=== PATIENT | female | born 1960 | race Caucasian/White ===

== ENCOUNTER → 2017-05-06 07:01 | Outpatient (CLI) | payer BC, SELFPAY ==
[2017-05-06 10:16] LABS: Absolute Lymphocyte Count 1.95 X10^3/ul (0.83-4.51); Absolute Neutrophil Count 3.5 X10^3/uL (2.0-7.7); Basophil# 0.03 X10^3/uL; Basophil% 0.5 % (0-1); Eosinophil# 0.07 X10^3/uL; Eosinophils% 1.2 % (0-5); Hematocrit 37.4 % (37-47); Hemoglobin 12.7 g/dl (12.0-15.0); Lymphocyte # 1.95 X10^3/ul (4.0); Lymphocyte % 32.5 % (19-41); Mean Corpuscular Hgb 30.2 pg (27.0-32.0); Mean Platelet Vol. 9.3 fl (6.2-12.0); Monocyte# 0.45 X10^3/uL; Monocyte% 7.5 % (0-10); Neutrophil % 58.3 % (47-70); Platelet Count 270 K/mm3 (150-450); RBC Distribution Width CV 13.3 % (11.6-14.6); RBC Distribution Width SD 41.2 fl (35.1-43.9)
[2017-05-06 10:17] LABS: POSITIVE COUNT NO; POSITIVE DIFFERENTIAL NO; POSITIVE MORPHOLOGY NO
[2017-05-06 10:26] LABS: AST(SGOT) 32 U/L (15-37); Alanine Aminotransfer ALT/SGPT 54 U/L (13-56); Albumin, Serum 3.7 g/dL (3.2-5.0); Alkaline Phosphatase 76 U/L (45-117); Anion Gap 10 (5-15); BUN 12 mg/dL (7-18); BUN/Creat Ratio 14.6 RATIO (10-20); Chloride 101 mmol/L (98-107); Creatinine, Serum 0.82 mg/dL (0.55-1.02); EST Glomerular Filtration Rate 77 mL/min (>60); Est Glom Filt Rate - Afr Amer 93 mL/min (>60); Globulin 3.8 g/dL (2.2-4.2); Glucose 135 mg/dL (74-106); Potassium 3.9 mmol/L (3.5-5.1); Protein, Total 7.5 g/dL (6.4-8.2); Sodium Level 140 mmol/L (136-145)
== END ==
PROVIDERS: Family Provider Internal Medicine; PCP Internal Medicine; Visit Provider Internal Medicine Rheumatology
DX: L40.59 Other psoriatic arthropathy (principal); M21.40 Flat foot [pes planus] (acquired), unspecified foot; I10 Essential (primary) hypertension; E11.9 Type 2 diabetes mellitus without complications; Z79.899 Other long term (current) drug therapy; Z85.820 Personal history of malignant melanoma of skin
CPT/HCPCS: 36415; 80053; 85025

== ENCOUNTER 2017-05-29 07:33 | Outpatient (RCR) | payer BC, SELFPAY ==
[2017-05-29 10:23] LABS: Absolute Lymphocyte Count 1.92 X10^3/ul (0.83-4.51); Absolute Neutrophil Count 3.5 X10^3/uL (2.0-7.7); Basophil# 0.02 X10^3/uL; Basophil% 0.3 % (0-1); Eosinophil# 0.08 X10^3/uL; Eosinophils% 1.3 % (0-5); Hematocrit 38.2 % (37-47); Hemoglobin 12.6 g/dl (12.0-15.0); Lymphocyte # 1.92 X10^3/ul (4.0); Lymphocyte % 31.6 % (19-41); Mean Platelet Vol. 8.9 fl (6.2-12.0); Monocyte# 0.51 X10^3/uL; Monocyte% 8.4 % (0-10); Neutrophil # 3.54 X10^3/uL (2.7-7.7); Neutrophil % 58.2 % (47-70); Platelet Count 232 K/mm3 (150-450); RBC Distribution Width CV 13.7 % (11.6-14.6); RBC Distribution Width SD 44.1 fl (35.1-43.9); White Blood Count 6.1 K/mm3 (4.4-11.0)
[2017-05-29 10:26] LABS: POSITIVE COUNT NO; POSITIVE DIFFERENTIAL NO; POSITIVE MORPHOLOGY NO
[2017-05-29 11:03] LABS: AST(SGOT) 27 U/L (15-37); Alanine Aminotransfer ALT/SGPT 51 U/L (13-56); Albumin, Serum 3.8 g/dL (3.2-5.0); Alkaline Phosphatase 75 U/L (45-117); Anion Gap 8 (5-15); BUN 21 mg/dL (7-18); BUN/Creat Ratio 26.6 RATIO (10-20); Chloride 100 mmol/L (98-107); Creatinine, Serum 0.79 mg/dL (0.55-1.02); EST Glomerular Filtration Rate 80 mL/min (>60); Est Glom Filt Rate - Afr Amer 97 mL/min (>60); Glucose 137 mg/dL (74-106); Potassium 3.5 mmol/L (3.5-5.1); Protein, Total 7.8 g/dL (6.4-8.2); Sodium Level 137 mmol/L (136-145)
== END 2017-05-29 08:00 | disposition home or self-care (01) ==
LOC: MTLAB 07:33
PROVIDERS: Family Provider Internal Medicine; PCP Internal Medicine; Visit Provider Internal Medicine Rheumatology
DX: L40.59 Other psoriatic arthropathy (principal); Z79.899 Other long term (current) drug therapy; L40.8 Other psoriasis; M21.40 Flat foot [pes planus] (acquired), unspecified foot; Z85.820 Personal history of malignant melanoma of skin; I10 Essential (primary) hypertension; E11.9 Type 2 diabetes mellitus without complications
CPT/HCPCS: 36415; 80053; 85025

== ENCOUNTER → 2017-08-11 07:36 | Outpatient (CLI) | payer BC, SELFPAY ==
[2017-08-11 10:11] LABS: Absolute Lymphocyte Count 1.99 X10^3/ul (0.83-4.51); Absolute Neutrophil Count 3.6 X10^3/uL (2.0-7.7); Basophil# 0.02 X10^3/uL; Basophil% 0.3 % (0-1); Eosinophil# 0.08 X10^3/uL; Eosinophils% 1.3 % (0-5); Hematocrit 42.1 % (37-47); Hemoglobin 13.8 g/dl (12.0-15.0); Lymphocyte # 1.99 X10^3/ul (4.0); Lymphocyte % 31.8 % (19-41); Mean Corp Hgb Conc 32.8 g/gl (32-36); Mean Corpuscular Hgb 30.1 pg (27.0-32.0); Mean Corpuscular Volume 91.7 fL (81-99); Mean Platelet Vol. 9.4 fl (6.2-12.0); Monocyte# 0.59 X10^3/uL; Monocyte% 9.4 % (0-10); Neutrophil # 3.58 X10^3/uL (2.7-7.7); Neutrophil % 57.2 % (47-70); Platelet Count 256 K/mm3 (150-450); RBC Distribution Width CV 13.3 % (11.6-14.6); RBC Distribution Width SD 43.8 fl (35.1-43.9); Red Blood Count 4.59 M/mm3 (4.2-5.4); White Blood Count 6.3 K/mm3 (4.4-11.0)
[2017-08-11 10:14] LABS: POSITIVE COUNT NO; POSITIVE DIFFERENTIAL NO; POSITIVE MORPHOLOGY NO
[2017-08-11 10:29] LABS: ALB/GLOB Ratio 0.9 RATIO (0.9-2.4); AST(SGOT) 61 U/L (15-37); Alanine Aminotransfer ALT/SGPT 67 U/L (13-56); Albumin, Serum 3.8 g/dL (3.2-5.0); Alkaline Phosphatase 80 U/L (45-117); Anion Gap 8 (5-15); BUN 15 mg/dL (7-18); BUN/Creat Ratio 17.5 RATIO (10-20); Calcium,Total 9.3 mg/dL (8.5-10.1); Chloride 103 mmol/L (98-107); Creatinine, Serum 0.86 mg/dL (0.55-1.02); EST Glomerular Filtration Rate 73 mL/min (>60); Est Glom Filt Rate - Afr Amer 88 mL/min (>60); Globulin 4.2 g/dL (2.2-4.2); Glucose 136 mg/dL (74-106); Potassium 3.7 mmol/L (3.5-5.1); Sodium Level 140 mmol/L (136-145)
== END ==
PROVIDERS: Family Provider Internal Medicine; PCP Internal Medicine; Visit Provider Internal Medicine Rheumatology
DX: L40.59 Other psoriatic arthropathy (principal); Z79.899 Other long term (current) drug therapy
CPT/HCPCS: 36415; 80053; 85025

== ENCOUNTER → 2017-10-01 07:01 | Outpatient (CLI) | payer BC, SELFPAY ==
[2017-10-01 10:14] LABS: Absolute Neutrophil Count 3.3 X10^3/uL (2.0-7.7); Basophil# 0.03 X10^3/uL; Basophil% 0.5 % (0-1); Eosinophils% 1.7 % (0-5); Hematocrit 39.7 % (37-47); Hemoglobin 13.4 g/dl (12.0-15.0); Lymphocyte % 30.9 % (19-41); Mean Corp Hgb Conc 33.8 g/gl (32-36); Mean Corpuscular Hgb 29.8 pg (27.0-32.0); Mean Corpuscular Volume 88.4 fL (81-99); Mean Platelet Vol. 9.3 fl (6.2-12.0); Monocyte% 10.3 % (0-10); Neutrophil # 3.29 X10^3/uL (2.7-7.7); Neutrophil % 56.6 % (47-70); Platelet Count 283 K/mm3 (150-450); RBC Distribution Width CV 13.1 % (11.6-14.6); RBC Distribution Width SD 41.2 fl (35.1-43.9); Red Blood Count 4.49 M/mm3 (4.2-5.4); White Blood Count 5.8 K/mm3 (4.4-11.0)
[2017-10-01 10:27] LABS: ALB/GLOB Ratio 0.9 RATIO (0.9-2.4); AST(SGOT) 28 U/L (15-37); Alanine Aminotransfer ALT/SGPT 45 U/L (13-56); Albumin, Serum 3.8 g/dL (3.2-5.0); Alkaline Phosphatase 77 U/L (45-117); Anion Gap 9 (5-15); BUN 13 mg/dL (7-18); BUN/Creat Ratio 16.5 RATIO (10-20); Calcium,Total 9.2 mg/dL (8.5-10.1); Chloride 102 mmol/L (98-107); Creatinine, Serum 0.79 mg/dL (0.55-1.02); EST Glomerular Filtration Rate 80 mL/min (>60); Est Glom Filt Rate - Afr Amer 97 mL/min (>60); Globulin 4.1 g/dL (2.2-4.2); Glucose 128 mg/dL (74-106); Potassium 3.6 mmol/L (3.5-5.1); Protein, Total 7.9 g/dL (6.4-8.2); Sodium Level 140 mmol/L (136-145)
[2017-10-01 10:32] LABS: POSITIVE COUNT NO; POSITIVE DIFFERENTIAL NO; POSITIVE MORPHOLOGY NO
== END ==
PROVIDERS: Family Provider Internal Medicine; PCP Internal Medicine; Visit Provider Internal Medicine Rheumatology
DX: L40.59 Other psoriatic arthropathy (principal); Z79.899 Other long term (current) drug therapy
CPT/HCPCS: 36415; 80053; 85025

== ENCOUNTER → 2017-12-29 07:14 | Outpatient (CLI) | payer BC, SELFPAY ==
[2017-12-29 10:11] LABS: Absolute Lymphocyte Count 1.86 X10^3/ul (0.83-4.51); Absolute Neutrophil Count 3.3 X10^3/uL (2.0-7.7); Basophil# 0.03 X10^3/uL; Basophil% 0.5 % (0-1); Eosinophil# 0.06 X10^3/uL; Hematocrit 39.7 % (37-47); Hemoglobin 13.1 g/dl (12.0-15.0); Lymphocyte # 1.86 X10^3/ul (4.0); Lymphocyte % 32.2 % (19-41); Mean Corpuscular Hgb 28.8 pg (27.0-32.0); Mean Corpuscular Volume 87.3 fL (81-99); Mean Platelet Vol. 8.9 fl (6.2-12.0); Monocyte% 8.7 % (0-10); Neutrophil # 3.32 X10^3/uL (2.7-7.7); Neutrophil % 57.4 % (47-70); Platelet Count 279 K/mm3 (150-450); RBC Distribution Width SD 43.7 fl (35.1-43.9); Red Blood Count 4.55 M/mm3 (4.2-5.4); White Blood Count 5.8 K/mm3 (4.4-11.0)
[2017-12-29 10:17] LABS: POSITIVE COUNT NO; POSITIVE DIFFERENTIAL NO; POSITIVE MORPHOLOGY NO
[2017-12-29 10:28] LABS: ALB/GLOB Ratio 0.9 RATIO (0.9-2.4); AST(SGOT) 34 U/L (15-37); Alanine Aminotransfer ALT/SGPT 56 U/L (13-56); Albumin, Serum 3.6 g/dL (3.2-5.0); Alkaline Phosphatase 85 U/L (45-117); Anion Gap 8 (5-15); BUN 14 mg/dL (7-18); BUN/Creat Ratio 17.3 RATIO (10-20); Calcium,Total 9.3 mg/dL (8.5-10.1); Chloride 103 mmol/L (98-107); Creatinine, Serum 0.81 mg/dL (0.55-1.02); EST Glomerular Filtration Rate 78 mL/min (>60); Est Glom Filt Rate - Afr Amer 94 mL/min (>60); Globulin 4.2 g/dL (2.2-4.2); Glucose 135 mg/dL (74-106); Potassium 3.8 mmol/L (3.5-5.1); Protein, Total 7.8 g/dL (6.4-8.2); Sodium Level 142 mmol/L (136-145)
== END ==
PROVIDERS: Family Provider Internal Medicine; PCP Internal Medicine; Referring Provider Internal Medicine Rheumatology; Visit Provider Internal Medicine Rheumatology
DX: L40.59 Other psoriatic arthropathy (principal); Z79.899 Other long term (current) drug therapy
CPT/HCPCS: 36415; 80053; 85025

== ENCOUNTER → 2018-02-13 07:49 | Outpatient (CLI) | payer BC, SELFPAY ==
--- NOTE | 2018-02-13 07:58 | BI_ITS ---
MAMMOGRAPHY - BILATERAL SCREENING REASON FOR EXAM: Female, 57 years old. Routine annual screening examination. PERTINENT HISTORY: Non-contributory. TECHNIQUE: Digital bilateral breast gin (3D mammographic acquisition) in the CC and MLO projections. 2-D mediolateral oblique (MLO) and craniocaudad (CC) views of both breasts were obtained. CAD: Full Field Digital Mammography with Computer Added Detection was performed. COMPARISON: Comparison is made with prior study dated February 16, 2013 and January 17, 2011. FINDINGS: Breast Composition: There are scattered areas of fibroglandular density. There are no dominant masses or suspicious calcifications. Stable small benign-appearing bilateral axillary lymph nodes. No other significant abnormalities are identified. There has been no significant change since the prior study. BI/SCREENING MAMM (CAD), BILAT IMPRESSION: Stable bilateral screening mammogram. Yearly follow-up mammogram recommended. (A) ASSESSMENT CATEGORY: BIRADS Category 2: Benign. A letter regarding these results will be sent to the patient by the facility within 30 days. Approximately 10% of breast cancers are not detected by mammography. A normal mammogram should not delay biopsy of a clinically suspicious abnormality. [id number] Electronically Signed: Alcides Will MD at 14:32 EST Tel [phone], Service support ,
== END ==
PROVIDERS: Family Provider Internal Medicine; PCP Internal Medicine; Referring Provider Internal Medicine; Visit Provider Internal Medicine
DX: Z12.31 Encounter for screening mammogram for malignant neoplasm of breast (principal)
CPT/HCPCS: 77063; 77067

== ENCOUNTER → 2018-06-17 07:03 | Outpatient (CLI) | payer BC, SELFPAY ==
[2018-05-10 07:11] VITALS: BMI 35.6
[2018-06-17 07:09] LABS: Mucous, Urine 0 SEEN /hpf (<or=2+)
[2018-06-17 09:56] LABS: Color, Urine Yellow (Yellow); Glucose, Dipstick Normal (Normal); Ketone-Dipstick Negative (Negative); Leukocyte Esterase-Dipstick 500 /ul (Negative); Nitrite-Dipstick Negative (Negative); Occult Blood-Urine 10 /ul (Negative); Protein-Dipstick 100 mg/dl (Negative); Specific Gravity, Urine 1.015 (1.002-1.030); Urine Bilirubin Dipstick Negative (Negative); Urine Clarity Sl. Cloudy (Clear); Urine Urobilinogen Normal (Normal)
[2018-06-17 10:02] LABS: Bacteria 1+ /hpf (None Seen); Red Blood Cells-Urine 0-5 SEEN /hpf (0-5); White Blood Cells 25-50 SEEN /hpf (0-5)
[2018-06-17 10:03] LABS: Squamous Epithelial Cells - UA 0-5 SEEN /hpf (5-10)
[2018-06-17 10:15] LABS: Cholesterol 180 mg/dL (200); High Density Lipoprotein 45 mg/dL; Thyroid Stim Hormone (TSH) 1.96 uIU/mL (0.358-3.74); Triglycerides 254 mg/dL; Very Low Density Lipoprotein 51 mg/dL (5-40)
[2018-06-17 10:47] LABS: Microalbumin:Creatinine Ratio 574.3 mg/g CRE (<30 mg/g CRE)
== END ==
PROVIDERS: Family Provider Internal Medicine; PCP Internal Medicine; Referring Provider Internal Medicine; Visit Provider Internal Medicine
DX: E11.29 Type 2 diabetes mellitus with other diabetic kidney complication (principal)
CPT/HCPCS: 36415; 80061; 81001; 82043; 82570; 84443

== ENCOUNTER → 2018-10-22 07:01 | Outpatient (CLI) | payer BC, SELFPAY ==
[2018-05-10 07:11] VITALS: BMI 35.6
[2018-10-22 10:22] LABS: Anion Gap 9 (5-15); BUN 12 mg/dL (7-18); BUN/Creat Ratio 15.1 RATIO (10-20); Calcium,Total 9.2 mg/dL (8.5-10.1); Chloride 104 mmol/L (98-107); EST Glomerular Filtration Rate 79 mL/min (>60); Est Glom Filt Rate - Afr Amer 95 mL/min (>60); Glucose 137 mg/dL (74-106); Potassium 3.8 mmol/L (3.5-5.1); Sodium Level 141 mmol/L (136-145)
== END ==
PROVIDERS: Family Provider Internal Medicine; PCP Internal Medicine; Referring Provider Internal Medicine; Visit Provider Internal Medicine
DX: R82.90 Unspecified abnormal findings in urine (principal); Z51.81 Encounter for therapeutic drug level monitoring
CPT/HCPCS: 36415; 80048

== ENCOUNTER → 2019-01-21 07:01 | Outpatient (CLI) | payer BC, SELFPAY ==
[2018-05-10 07:11] VITALS: BMI 35.6
[2019-01-21 07:06] LABS: Mucous, Urine 0 SEEN /hpf (<or=2+)
[2019-01-21 09:57] LABS: Absolute Lymphocyte Count 1.83 X10^3/uL (0.83-4.51); Absolute Neutrophil Count 3.5 X10^3/uL (2.0-7.7); Basophil# 0.04 X10^3/uL; Basophil% 0.7 % (0-1); Eosinophils% 1.7 % (0-5); Hematocrit 39.9 % (37-47); Hemoglobin 12.9 g/dL (12.0-15.0); Lymphocyte # 1.83 X10^3/ul (4.0); Lymphocyte % 30.2 % (19-41); Mean Corp Hgb Conc 32.3 g/dL (32-36); Mean Corpuscular Hgb 27.9 pg (27.0-32.0); Mean Corpuscular Volume 86.4 fL (81-99); Mean Platelet Vol. 9.7 fl (6.2-12.0); Monocyte# 0.54 X10^3/uL; Monocyte% 8.9 % (0-10); NRBC Flagged by Analyzer 0 % (0-5); Neutrophil # 3.54 X10^3/uL (2.7-7.7); Neutrophil % 58.3 % (47-70); Platelet Count 224 K/mm3 (150-450); RBC Distribution Width CV 13.4 % (11.6-14.6); RBC Distribution Width SD 41.1 fl (35.1-43.9); Red Blood Count 4.62 M/mm3 (4.2-5.4); White Blood Count 6.1 K/mm3 (4.4-11.0)
[2019-01-21 10:00] LABS: Color, Urine Yellow (Yellow); Glucose, Dipstick 1000 mg/dl (Normal); Ketone-Dipstick Negative (Negative); Leukocyte Esterase-Dipstick 25 /ul (Negative); Nitrite-Dipstick Negative (Negative); Occult Blood-Urine Negative /ul (Negative); Protein-Dipstick 100 mg/dl (Negative); Urine Bilirubin Dipstick Negative (Negative); Urine Clarity Clear (Clear); Urine Urobilinogen Normal (Normal)
[2019-01-21 10:08] LABS: Bacteria RARE /hpf (None Seen); Red Blood Cells-Urine 0-5 SEEN /hpf (0-5); Squamous Epithelial Cells - UA 0-5 SEEN /hpf (5-10); White Blood Cells 5-10 SEEN /hpf (0-5)
[2019-01-21 10:38] LABS: ALB/GLOB Ratio 0.8 RATIO (0.9-2.4); AST(SGOT) 41 U/L (15-37); Alanine Aminotransfer ALT/SGPT 51 U/L (13-56); Albumin, Serum 3.4 g/dL (3.2-5.0); Alkaline Phosphatase 95 U/L (45-117); Anion Gap 8 (5-15); BUN 19 mg/dL (7-18); BUN/Creat Ratio 20.5 RATIO (10-20); Calcium,Total 9.1 mg/dL (8.5-10.1); Chloride 106 mmol/L (98-107); Creatinine, Serum 0.93 mg/dL (0.55-1.02); EST Glomerular Filtration Rate 66 mL/min (>60); Est Glom Filt Rate - Afr Amer 80 mL/min (>60); Globulin 4.1 g/dL (2.2-4.2); Glucose 174 mg/dL (74-106); Potassium 3.8 mmol/L (3.5-5.1); Protein, Total 7.5 g/dL (6.4-8.2); Sodium Level 140 mmol/L (136-145); Thyroid Stim Hormone (TSH) 1.89 uIU/mL (0.358-3.74)
[2019-01-21 10:39] LABS: Microalbumin:Creatinine Ratio 1254.1 mg/g CRE (<30 mg/g CRE)
[2019-01-22 14:07] LABS: CHOLESTEROL TOTAL 199 mg/dL (100-199); HDL-C 42 mg/dL (>39); HDL-P TOTAL 35.8 umol/L (>=30.5); SMALL LDL-P 1251 nmol/L (<=527); TRIGLYCERIDES 178 mg/dL (0-149)
[2019-01-24 10:30] LABS: INSULIN RESISTANCE SCORE 80 (<=45); LDL SIZE 19.9 nm (>20.5); LDL-C 121 mg/dL (0-99); LDL-P 1789 nmol/L (<1000)
== END ==
PROVIDERS: Family Provider Internal Medicine; PCP Internal Medicine; Referring Provider Internal Medicine; Visit Provider Internal Medicine
DX: E11.65 Type 2 diabetes mellitus with hyperglycemia (principal)
CPT/HCPCS: 36415; 80053; 80061; 81001; 82043; 82570; 83704; 84443; 85025

== ENCOUNTER → 2019-02-15 16:04 | Outpatient (CLI) | payer BC, SELFPAY ==
[2018-05-10 07:11] VITALS: BMI 35.6
--- NOTE | 2019-02-15 16:07 | BI_ITS ---
MAMMOGRAPHY - BILATERAL SCREENING REASON FOR EXAM: Female, 58 years old. Routine annual screening examination. PERTINENT HISTORY: Non-contributory. TECHNIQUE: Digital bilateral breast mariama (3D mammographic acquisition) in the CC and MLO projections. 2-D mediolateral oblique (MLO) and craniocaudad (CC) views of both breasts were obtained. CAD: Full Field Digital Mammography with Computer Added Detection was performed. COMPARISON: Comparison is made with prior examination dated February 13, 2018 and February 16, 2013. FINDINGS: Breast Composition: There are scattered areas of fibroglandular density. There are no dominant masses or suspicious calcifications. Stable appearance of the small bilateral axillary lymph nodes. No other significant abnormalities are identified. There has been no significant change since the prior study. BI/SCREEN MAMM (CAD) W/MARIAMA BILAT IMPRESSION: Stable bilateral screening mammogram. Yearly follow-up mammogram recommended. (A) ASSESSMENT CATEGORY: BIRADS Category 2: Benign. A letter regarding these results will be sent to the patient by the facility within 30 days. Approximately 10% of breast cancers are not detected by mammography. A normal mammogram should not delay biopsy of a clinically suspicious abnormality. [id number] Electronically Signed: Alcides Will, at 8:07 EST , Service support ,
== END ==
PROVIDERS: Family Provider Internal Medicine; PCP Internal Medicine; Referring Provider Internal Medicine; Visit Provider Internal Medicine
DX: Z12.31 Encounter for screening mammogram for malignant neoplasm of breast (principal); G47.33 Obstructive sleep apnea (adult) (pediatric)
CPT/HCPCS: 77063; 77067

== ENCOUNTER → 2019-04-25 07:01 | Outpatient (CLI) | payer BC, SELFPAY ==
[2018-05-10 07:11] VITALS: BMI 35.6
[2019-04-25 10:46] LABS: AST(SGOT) 39 U/L (15-37); Alanine Aminotransfer ALT/SGPT 60 U/L (13-56); Albumin, Serum 3.5 g/dL (3.2-5.0); Alkaline Phosphatase 79 U/L (45-117); Bilirubin, Direct 0.14 mg/dL (0.00-0.30); Globulin 4.3 g/dL (2.2-4.2); Protein, Total 7.8 g/dL (6.4-8.2)
[2019-04-26 14:19] LABS: CHOLESTEROL TOTAL 151 mg/dL (100-199); HDL-C 40 mg/dL (>39); HDL-P TOTAL 30.2 umol/L (>=30.5); SMALL LDL-P 856 nmol/L (<=527); TRIGLYCERIDES 185 mg/dL (0-149)
[2019-04-27 12:00] LABS: INSULIN RESISTANCE SCORE 85 (<=45); LDL SIZE 20.5 nm (>20.5); LDL-C 74 mg/dL (0-99); LDL-P 1295 nmol/L (<1000)
== END ==
PROVIDERS: PCP Internal Medicine; Referring Provider Internal Medicine; Visit Provider Internal Medicine
DX: E11.65 Type 2 diabetes mellitus with hyperglycemia (principal)
CPT/HCPCS: 36415; 80061; 80076; 83704

== ENCOUNTER → 2019-04-28 09:00 | Outpatient (CLI) | payer BC, SELFPAY ==
[2018-05-10 07:11] VITALS: BMI 35.6
== END ==
PROVIDERS: PCP Internal Medicine; Referring Provider Internal Medicine; Visit Provider Internal Medicine
DX: G47.33 Obstructive sleep apnea (adult) (pediatric) (principal)
CPT/HCPCS: 98960; G0463

== ENCOUNTER → 2019-07-22 07:02 | Outpatient (CLI) | payer BC, SELFPAY ==
[2018-05-10 07:11] VITALS: BMI 35.6
[2019-07-22 07:08] LABS: Mucous, Urine 0 SEEN /hpf (<or=2+)
[2019-07-22 09:56] LABS: Absolute Lymphocyte Count 2.04 X10^3/uL (0.83-4.51); Absolute Neutrophil Count 3.6 X10^3/uL (2.0-7.7); Basophil# 0.04 X10^3/uL; Basophil% 0.6 % (0-1); Eosinophil# 0.09 X10^3/uL; Eosinophils% 1.4 % (0-5); Hematocrit 40.6 % (37-47); Hemoglobin 13.2 g/dL (12.0-15.0); Lymphocyte # 2.04 X10^3/ul (4.0); Lymphocyte % 32.5 % (19-41); Mean Corp Hgb Conc 32.5 g/dL (32-36); Mean Corpuscular Hgb 27.8 pg (27.0-32.0); Mean Corpuscular Volume 85.7 fL (81-99); Mean Platelet Vol. 9.5 fl (6.2-12.0); Monocyte# 0.54 X10^3/uL; Monocyte% 8.6 % (0-10); NRBC Flagged by Analyzer 0 % (0-5); Neutrophil # 3.55 X10^3/uL (2.7-7.7); Neutrophil % 56.7 % (47-70); Platelet Count 249 K/mm3 (150-450); RBC Distribution Width CV 13.1 % (11.6-14.6); RBC Distribution Width SD 40.9 fl (35.1-43.9); Red Blood Count 4.74 M/mm3 (4.2-5.4); White Blood Count 6.3 K/mm3 (4.4-11.0)
[2019-07-22 10:30] LABS: ALB/GLOB Ratio 0.8 RATIO (0.9-2.4); AST(SGOT) 25 U/L (15-37); Alanine Aminotransfer ALT/SGPT 43 U/L (13-56); Albumin, Serum 3.5 g/dL (3.2-5.0); Alkaline Phosphatase 79 U/L (45-117); Anion Gap 6 (5-15); BUN 15 mg/dL (7-18); BUN/Creat Ratio 16.7 RATIO (10-20); Chloride 103 mmol/L (98-107); EST Glomerular Filtration Rate 69 mL/min (>60); Est Glom Filt Rate - Afr Amer 83 mL/min (>60); Globulin 4.2 g/dL (2.2-4.2); Glucose 130 mg/dL (74-106); Potassium 3.5 mmol/L (3.5-5.1); Protein, Total 7.7 g/dL (6.4-8.2); Sodium Level 138 mmol/L (136-145); Thyroid Stim Hormone (TSH) 1.92 uIU/mL (0.358-3.74)
[2019-07-22 11:10] LABS: Color, Urine Yellow (Yellow); Glucose, Dipstick 1000 mg/dl (Normal); Ketone-Dipstick Negative (Negative); Leukocyte Esterase-Dipstick 25 /ul (Negative); Nitrite-Dipstick Negative (Negative); Occult Blood-Urine Negative /ul (Negative); Protein-Dipstick 100 mg/dl (Negative); Urine Bilirubin Dipstick Negative (Negative); Urine Clarity Clear (Clear); Urine Urobilinogen Normal (Normal)
[2019-07-22 12:13] LABS: Microalbumin:Creatinine Ratio 594.9 mg/g CRE (<30 mg/g CRE)
[2019-07-22 12:27] LABS: Squamous Epithelial Cells - UA 0-5 SEEN /hpf (5-10); White Blood Cells 5-10 SEEN /hpf (0-5)
[2019-07-22 12:28] LABS: Bacteria 2+ /hpf (None Seen)
[2019-07-23 12:07] LABS: CHOLESTEROL TOTAL 175 mg/dL (100-199); HDL-C 53 mg/dL (>39); SMALL LDL-P 466 nmol/L (<=527); TRIGLYCERIDES 160 mg/dL (0-149)
[2019-07-23 14:05] LABS: INSULIN RESISTANCE SCORE 74 (<=45); LDL SIZE 20.9 nm (>20.5); LDL-C 90 mg/dL (0-99); LDL-P 1170 nmol/L (<1000)
== END ==
PROVIDERS: PCP Internal Medicine; Referring Provider Internal Medicine; Visit Provider Internal Medicine
DX: I12.9 Hypertensive chronic kidney disease with stage 1 through stage 4 chronic kidney disease, or unspecified chronic kidney disease (principal); E11.22 Type 2 diabetes mellitus with diabetic chronic kidney disease; N18.9 Chronic kidney disease, unspecified; E11.65 Type 2 diabetes mellitus with hyperglycemia
CPT/HCPCS: 36415; 80053; 80061; 81001; 82043; 82570; 83704; 84443; 85025

== ENCOUNTER → 2019-10-14 08:13 | Outpatient (CLI) | payer BC, SELFPAY ==
[2018-05-10 07:11] VITALS: BMI 35.6
[2019-10-14 09:43] LABS: Absolute Lymphocyte Count 1.79 X10^3/uL (0.83-4.51); Absolute Neutrophil Count 3.2 X10^3/uL (2.0-7.7); Basophil# 0.03 X10^3/uL; Basophil% 0.5 % (0-1); Eosinophil# 0.08 X10^3/uL; Eosinophils% 1.4 % (0-5); Hematocrit 39.7 % (37-47); Hemoglobin 12.5 g/dL (12.0-15.0); Lymphocyte # 1.79 X10^3/ul (4.0); Lymphocyte % 32.1 % (19-41); Mean Corp Hgb Conc 31.5 g/dL (32-36); Mean Corpuscular Hgb 26.9 pg (27.0-32.0); Mean Corpuscular Volume 85.6 fL (81-99); Mean Platelet Vol. 9.4 fl (6.2-12.0); Monocyte# 0.49 X10^3/uL; Monocyte% 8.8 % (0-10); NRBC Flagged by Analyzer 0 % (0-5); Neutrophil # 3.17 X10^3/uL (2.7-7.7); Platelet Count 245 K/mm3 (150-450); RBC Distribution Width CV 13.2 % (11.6-14.6); RBC Distribution Width SD 40.8 fl (35.1-43.9); Red Blood Count 4.64 M/mm3 (4.2-5.4); White Blood Count 5.6 K/mm3 (4.4-11.0)
[2019-10-14 10:16] LABS: AST(SGOT) 22 U/L (15-37); Alanine Aminotransfer ALT/SGPT 31 U/L (13-56); Albumin, Serum 3.8 g/dL (3.2-5.0); Alkaline Phosphatase 76 U/L (45-117); Bilirubin, Direct 0.14 mg/dL (0.00-0.30); Globulin 3.9 g/dL (2.2-4.2); Protein, Total 7.7 g/dL (6.4-8.2)
[2019-10-14 10:50] LABS: HIV - WCH Non-Reactive (Nonreactive); Hepatitis B Surface Antibody Non-Reactive; Hepatitis B Surface Antigen Non-Reactive (Nonreactive)
== END ==
PROVIDERS: PCP Internal Medicine; Referring Provider Dermatology; Visit Provider Dermatology
DX: Z79.899 Other long term (current) drug therapy (principal); Z08 Encounter for follow-up examination after completed treatment for malignant neoplasm; Z85.820 Personal history of malignant melanoma of skin; L40.0 Psoriasis vulgaris; L40.59 Other psoriatic arthropathy; D22.5 Melanocytic nevi of trunk; L57.8 Other skin changes due to chronic exposure to nonionizing radiation
CPT/HCPCS: 36415; 80076; 85025; 86480; 86703; 86704; 86706; 87340

== ENCOUNTER → 2019-10-27 15:24 | Outpatient (CLI) | payer BC, SELFPAY ==
[2018-05-10 07:11] VITALS: BMI 35.6
[2019-11-01 03:07] LABS: QNTFERON TB Mitogen Value > 10.00 IU/mL (.); QNTFERON TB Nil Value 0.15 IU/mL (.); QNTFERON TB1+ Ag Value 0.34 IU/mL (.); QNTFERON TB2+ Ag Value 0.28 IU/mL (.)
[2019-11-01 17:01] LABS: QNTIFERON TB Positive Criteria Negative (Negative)
== END ==
PROVIDERS: PCP Internal Medicine; Referring Provider Ophthalmology; Visit Provider Ophthalmology
DX: Z79.899 Other long term (current) drug therapy (principal)
CPT/HCPCS: 36415; 86480

== ENCOUNTER → 2020-11-08 07:00 | Outpatient (CLI) | payer BC, SELFPAY ==
[2018-05-10 07:11] VITALS: BMI 35.6
[2020-11-08 10:14] LABS: Absolute Lymphocyte Count 1.66 X10^3/uL (0.83-4.51); Absolute Neutrophil Count 2.9 X10^3/uL (2.0-7.7); Basophil# 0.04 X10^3/uL; Basophil% 0.8 % (0-1); Eosinophils% 1.9 % (0-5); Hematocrit 41.1 % (37-47); Hemoglobin 13.2 g/dL (12.0-15.0); Lymphocyte # 1.66 X10^3/ul (0.83-4.51); Lymphocyte % 32.3 % (19-41); Mean Corp Hgb Conc 32.1 g/dL (32-36); Mean Corpuscular Hgb 27.2 pg (27.0-32.0); Mean Corpuscular Volume 84.6 fL (81-99); Mean Platelet Vol. 9.5 fl (6.2-12.0); Monocyte# 0.47 X10^3/uL; Monocyte% 9.1 % (0-10); NRBC Flagged by Analyzer 0 % (0-5); Neutrophil # 2.85 X10^3/uL (2.7-7.7); Neutrophil % 55.5 % (47-70); Platelet Count 245 K/mm3 (150-450); RBC Distribution Width CV 14.9 % (11.6-14.6); Red Blood Count 4.86 M/mm3 (4.2-5.4); White Blood Count 5.1 K/mm3 (4.4-11.0)
[2020-11-08 10:33] LABS: Hemoglobin A1c 7.2 % (3.8-5.6)
[2020-11-08 10:38] LABS: ALB/GLOB Ratio 0.8 RATIO (0.9-2.4); AST(SGOT) 30 U/L (15-37); Alanine Aminotransfer ALT/SGPT 41 U/L (13-56); Albumin, Serum 3.5 g/dL (3.2-5.0); Alkaline Phosphatase 78 U/L (45-117); Anion Gap 9 (5-15); BUN 17 mg/dL (7-18); BUN/Creat Ratio 18.6 RATIO (10-20); Calcium,Total 9.4 mg/dL (8.5-10.1); Chloride 102 mmol/L (98-107); Cholesterol 211 mg/dL (200); Creatinine, Serum 0.91 mg/dL (0.55-1.02); EST Glomerular Filtration Rate 67 mL/min (>60); Est Glom Filt Rate - Afr Amer 81 mL/min (>60); Globulin 4.3 g/dL (2.2-4.2); Glucose 184 mg/dL (74-106); High Density Lipoprotein 46 mg/dL; Potassium 3.7 mmol/L (3.5-5.1); Protein, Total 7.8 g/dL (6.4-8.2); Sodium Level 140 mmol/L (136-145); Thyroid Stim Hormone (TSH) 1.96 uIU/mL (0.358-3.74); Triglycerides 239 mg/dL; Very Low Density Lipoprotein 48 mg/dL (5-40)
[2020-11-08 11:01] LABS: Microalbumin:Creatinine Ratio 747.6 mg/g CRE (<30 mg/g CRE)
== END ==
PROVIDERS: PCP Internal Medicine; Referring Provider Internal Medicine; Visit Provider Internal Medicine
DX: E78.2 Mixed hyperlipidemia (principal); I12.9 Hypertensive chronic kidney disease with stage 1 through stage 4 chronic kidney disease, or unspecified chronic kidney disease; E11.22 Type 2 diabetes mellitus with diabetic chronic kidney disease; N18.9 Chronic kidney disease, unspecified; E11.65 Type 2 diabetes mellitus with hyperglycemia
CPT/HCPCS: 36415; 80053; 80061; 82043; 82570; 83036; 84443; 85025

== ENCOUNTER → 2021-01-22 07:15 | Outpatient (CLI) | payer BC, SELFPAY ==
[2021-01-22 09:53] LABS: Absolute Lymphocyte Count 1.76 X10^3/uL (0.83-4.51); Basophil# 0.04 X10^3/uL; Basophil% 0.7 % (0-1); Eosinophil# 0.11 X10^3/uL; Hematocrit 42.9 % (37-47); Hemoglobin 13.7 g/dL (12.0-15.0); Lymphocyte # 1.76 X10^3/ul (0.83-4.51); Lymphocyte % 32.5 % (19-41); Mean Corp Hgb Conc 31.9 g/dL (32-36); Mean Corpuscular Hgb 27.5 pg (27.0-32.0); Mean Corpuscular Volume 86.1 fL (81-99); Mean Platelet Vol. 9.1 fl (6.2-12.0); Monocyte# 0.53 X10^3/uL; Monocyte% 9.8 % (0-10); NRBC Flagged by Analyzer 0 % (0-5); Neutrophil # 2.96 X10^3/uL (2.7-7.7); Neutrophil % 54.8 % (47-70); Platelet Count 230 K/mm3 (150-450); RBC Distribution Width SD 43.6 fl (35.1-43.9); Red Blood Count 4.98 M/mm3 (4.2-5.4); White Blood Count 5.4 K/mm3 (4.4-11.0)
[2021-01-22 10:09] LABS: AST(SGOT) 29 U/L (15-37); Alanine Aminotransfer ALT/SGPT 34 U/L (13-56); Albumin, Serum 3.3 g/dL (3.2-5.0); Alkaline Phosphatase 71 U/L (45-117); Bilirubin, Direct 0.17 mg/dL (0.00-0.30); Globulin 4.3 g/dL (2.2-4.2); Protein, Total 7.6 g/dL (6.4-8.2)
[2021-01-29 16:08] LABS: QNTFERON TB Mitogen Value > 10.00 IU/mL (.); QNTFERON TB Nil Value 0.12 IU/mL (.); QNTFERON TB1+ Ag Value 0.15 IU/mL (.); QNTFERON TB2+ Ag Value 0.17 IU/mL (.)
[2021-01-29 16:38] LABS: QNTIFERON TB Positive Criteria Negative (Negative)
== END ==
PROVIDERS: PCP Internal Medicine; Referring Provider Dermatology; Visit Provider Dermatology
DX: Z08 Encounter for follow-up examination after completed treatment for malignant neoplasm (principal); L40.0 Psoriasis vulgaris; L40.59 Other psoriatic arthropathy; L57.8 Other skin changes due to chronic exposure to nonionizing radiation; D22.5 Melanocytic nevi of trunk; Z79.899 Other long term (current) drug therapy; Z85.820 Personal history of malignant melanoma of skin
CPT/HCPCS: 36415; 80076; 85025; 86480

== ENCOUNTER 2021-04-04 15:19 | Outpatient (CLI) | payer BC, SELFPAY ==
--- NOTE | 2021-04-04 15:21 | BI_ITS ---
MAMMOGRAPHY - BILATERAL SCREENING REASON FOR EXAM: Female, 61 years old. Routine annual screening examination. PERTINENT HISTORY: Non-contributory. TECHNIQUE: Digital bilateral breast mariama (3D mammographic acquisition) in the CC and MLO projections. 2-D mediolateral oblique (MLO) and craniocaudad (CC) views of both breasts were obtained. CAD: Full Field Digital Mammography with Computer Added Detection was performed. COMPARISON: Comparison is made with prior study dated 02/15/2019 and 02/13/2018. FINDINGS: Breast Composition: There are scattered areas of fibroglandular density. There are no dominant masses or suspicious calcifications. Stable small benign-appearing bilateral axillary lymph nodes. No other significant abnormalities are identified. There has been no significant change since the prior study. BI/SCRN MAMM (CAD)W/MARIAMA BILAT IMPRESSION: Stable bilateral screening mammogram. Yearly follow-up mammogram recommended. (A) ASSESSMENT CATEGORY: BIRADS Category 2: Benign. A letter regarding these results will be sent to the patient by the facility within 30 days. Approximately 10% of breast cancers are not detected by mammography. A normal mammogram should not delay biopsy of a clinically suspicious abnormality. [id number] Electronically Signed: Alcides Will MD at 8:07 EST , Service support ,
--- NOTE | 2021-04-04 15:24 | BD_ITS ---
STUDY: DUAL ENERGY X-RAY ABSORPTIOMETRY / DXA REASON FOR EXAM: Female, 61 years old. Z780. Patient is postmenopausal. TECHNIQUE: Bone Mineral Density (BMD) measurements of lumbar spine and bilateral hips were obtained. COMPARISON: None. FINDINGS: Lumbar Spine (L1-L4): g/cm2 (1.021) / T-score (-0.2) / Z-score (1.2) Findings are suggestive of normal bone density with a low fracture risk. Left Femur Total: g/cm2 (1.048) / T-score (0.9) / Z-score (1.8) Left Femoral Neck: g/cm2 (0.825) / T-score (-0.2) / Z-score (1.1) Right Femur Total: g/cm2 (1.033) / T-score (0.7) / Z-score (1.7) Right Femoral Neck: g/cm2 (0.840) / T-score (-0.1) / Z-score (1.2) BD/Dexa Bone Density Study IMPRESSION: The patient is considered normal as outlined below according to World Elio Organization (WHO) criteria with a low fracture risk. Reference Information: The T-score is the number of standard deviations above or below the standard which is normal for young adults at their peak bone mineral density. The World Health Organization (WHO) interprets the T-scores as follows: Above -1 Normal bone density Between -1 and -2.5 Osteopenia Equal to / or below -2.5 Osteoporosis As a practical clinical guideline, osteopenia may be graded as follows: Mild -1 through -1.5 Moderate -1.6 through -2.0 Severe -2.1 through -2.4 The Z-score is the number of standard deviations above or below age-matched controls. A Z-score of less than -1.5 would be considered abnormal. References: 1. NIH Osteoporosis and Related Bone Diseases www osteo.org 2. International Society for Clinical Densitometry www iscd.org 3. National Osteoporosis Foundation www nof.org Electronically Signed: Alcides Will MD at 10:27 EST , Service support ,
== END 2021-04-04 23:59 | disposition home or self-care (01) ==
LOC: OPBD 15:19
PROVIDERS: PCP Internal Medicine; Visit Provider Internal Medicine
DX: Z12.31 Encounter for screening mammogram for malignant neoplasm of breast (principal); Z13.820 Encounter for screening for osteoporosis
CPT/HCPCS: 77063; 77067; 77080

== ENCOUNTER 2021-05-30 09:14 | Day surgery (SDC) | payer BC, SELFPAY ==
[2021-05-30] MEDS: Lactated Ringers 1,000 ML 15 ML IV (09:25)
[2021-05-30 09:46] LABS: Bedside Glucose 157 mg/dL (74-106)
--- NOTE | 2021-05-30 10:15 | COLBX_PTH ---
PATIENT: SUSANNE MEJIA LOC: EN U#:[id number] AGE/SX: 61/F ROOM: RE05/30/[address]: Dr. Jan Larson DO : 1960 BED: DIS: 05/30/2021 SPEC #: [id number] RECD: 05/30/21 13:44 STATUS: LIVIA ZAHIRA #: [id number] MILAN: 05/30/21 10:[address]: Jan Larson DEPT: SURGICAL PATHOLOGY RECD BY: Rosa Arrieta ENTERED: 05/31/21 09:27 SP TYPE: COLON BX OTHR DR: Dr. Jesica Wilson DO Tissues: A - Cecum, NOS B - Transverse colon Procedures: Surgery Specimen Level IV HEADER OPERATION: Colonoscopy ? open access (MAC), polypectomy PRE-OP DIAGNOSIS: Screening TISSUE SUBMITTED: A ? Cecum polyps (2), B ? Transverse colon polyp (1) MICROSCOPIC DIAGNOSIS A. Cecal polyps, biopsy: Fragments of inflammatory polyp with superficial mucosal ulceration. B. Transverse colon polyp, biopsy: Polypoid fragment of benign colonic mucosa with thermal artifact. See comment. AM:yaw 06/03/2021 COMMENT B. Adenomatous change is not identified. Clinical correlation is suggested. MICROSCOPIC DESCRIPTION Slides are reviewed. GROSS DESCRIPTION A - Received in fixative is one container labeled with the patient's name and designated cecum polyps (2). The specimen consists of multiple irregular fragments of horton-pink polyp that in aggregate measure 1 x 0.7 x 0.4 cm. The specimen is totally submitted in one cassette. B - Received in fixative is one container labeled with the patient's name and designated transverse colon polyp (1). The specimen consists of one irregular fragment of light horton soft tissue that measures 0.2 x 0.2 x 0.1 cm. Multiple fragments of fecal material are also noted. The specimen is totally submitted in one cassette. / SJ:yaw 05/31/2021 TC:2 CPT: 79950 x2
--- NOTE | 2021-05-30 11:30 | OP.COLON_ITS ---
Patient Name: Susannah Damon Procedure Date: 05/30/2021 10:47 AM Date of : 1960 Age: 61 Procedure: Colonoscopy Indications: High risk colon cancer surveillance: Personal history of colonic polyps Providers: Jan Larson DO Medicines: See the Anesthesia note for documentation of the administered medications Patient Profile: Last Colonoscopy: 5 years ago. Complications: No immediate complications. Procedure: Pre-Anesthesia Assessment: - Prior to the procedure, a History and Physical was performed, and patient medications and allergies were reviewed. The patient is competent. The risks and benefits of the procedure and the sedation options and risks were discussed with the patient. All questions were answered and informed consent was obtained. Patient identification and proposed procedure were verified by the physician in the pre-procedure area. Mental Status Examination: alert and oriented. Airway Examination: normal oropharyngeal airway and neck mobility. Respiratory Examination: clear to auscultation. CV Examination: normal. Prophylactic Antibiotics: The patient does not require prophylactic antibiotics. Prior Anticoagulants: The patient has taken no previous anticoagulant or antiplatelet agents. ASA Grade Assessment: II - A patient with mild systemic disease. After reviewing the risks and benefits, the patient was deemed in satisfactory condition to undergo the procedure. The anesthesia plan was to use moderate sedation / analgesia (conscious sedation). Immediately prior to administration of medications, the patient was re-assessed for adequacy to receive sedatives. The heart rate, respiratory rate, oxygen saturations, blood pressure, adequacy of pulmonary ventilation, and response to care were monitored throughout the procedure. The physical status of the patient was re-assessed after the procedure. After I obtained informed consent, the scope was passed under direct vision. Throughout the procedure, the patient's blood pressure, pulse, and oxygen saturations were monitored continuously. The colonoscope was introduced through the anus and advanced to the cecum, identified by appendiceal orifice and ileocecal valve. The colonoscopy was performed without difficulty. The patient tolerated the procedure well. The quality of the bowel preparation was good. Moderate Sedation: Moderate (conscious) sedation was administered by the endoscopy nurse and supervised by the endoscopist. The following parameters were monitored: oxygen saturation, heart rate, blood pressure, and response to care. Total physician intraservice time was 15 minutes. Scope In: 11:04:24 AM Scope Withdrawal Time 0 hours 19 minutes 43 seconds Scope Out: 11:25:52 AM Total Procedure Duration Time 0 hours 21 minutes 28 seconds Findings: The perianal and digital rectal examinations were normal. 9 mm, non-bleeding rectal varices were found. Three sessile polyps were found in the sigmoid colon, transverse colon and cecum. The polyps were 1 to 2 mm in size. These polyps were removed with a hot snare. Resection and retrieval were complete. Verification of patient identification for the specimen was done. Estimated blood loss was minimal. Multiple small and large-mouthed diverticula were found in the sigmoid colon, transverse colon, hepatic flexure and ascending colon. There was no evidence of diverticular bleeding. Impression: - Rectal varices. - Three 1 to 2 mm polyps in the sigmoid colon, in the transverse colon and in the cecum, removed with a hot snare. Resected and retrieved. - Moderate diverticulosis in the sigmoid colon, in the transverse colon, at the hepatic flexure and in the ascending colon. There was no evidence of diverticular bleeding. Recommendation: - Discharge patient to home. - Resume previous diet. - Continue present medications. - Await pathology results. - Repeat colonoscopy in 3 years for surveillance based on pathology results. Procedure Code(s): --- Professional --- 76734, Colonoscopy, flexible; with removal of tumor(s), polyp(s), or other lesion(s) by snare technique 75644, 59, Moderate sedation services provided by the same physician or other qualified health care mgr performing the diagnostic or therapeutic service that the sedation supports, requiring the presence of an independent trained observer to assist in the monitoring of the patient's level of consciousness and physiological status; initial 15 minutes of intraservice time, patient age 5 years or older CPT copyright 2017 [employer]. All rights reserved. The codes documented in this report are preliminary and upon accountant clerk review may be revised to meet current compliance requirements. Jan Larson DO 05/30/2021 11:29:39 AM This report has been signed electronically. Number of Addenda: 1 Note Initiated On: 05/30/2021 10:47 AM Addendum Number: 1 Addendum Date: 12/25/2021 6:38:07 AM MAC was used as sedation for this procedure. Jan Larson DO 12/25/2021 6:38:11 AM This report has been signed electronically.
--- NOTE | 2021-05-30 11:31 | OP.CCLET_ITS ---
12/25/2021 Jesica Wilson [address] [place] [address] [place] [address] Re : Colonoscopy procedure for Susannah Damon Dear Dr. Wilson This procedure was performed on May. My impressions and recommendations are as follows: Impressions : - Rectal varices. - Three 1 to 2 mm polyps in the sigmoid colon, in the transverse colon and in the cecum, removed with a hot snare. Resected and retrieved. - Moderate diverticulosis in the sigmoid colon, in the transverse colon, at the hepatic flexure and in the ascending colon. There was no evidence of diverticular bleeding. Recommendations : - Discharge patient to home. - Resume previous diet. - Continue present medications. - Await pathology results. - Repeat colonoscopy in 3 years for surveillance based on pathology results. My findings are described in the full procedure note, which is enclosed. If I can be of further assistance, please feel free to contact me at . Sincerely, Jan Larson, 05/30/2021 11:29:39 AM This report has been signed electronically.
--- NOTE | 2021-05-30 11:31 | PCM.HP.BLA ---
History and Physical Date of Admission: 05/30/21 Details: SUSANNE MEJIA, is a 61 F who presentsFor for a colonoscopy today. She has a past medical history of type 2 diabetes mellitus with CKD. She has had colonoscopy in the past and she presents for surveillance colonoscopy due to history of polyps. She denies any abdominal pain. Denies any chest pain or shortness of breath. Denies any fevers or chills. Past medical history: Diabetes, hypertension, hyperlipidemia She has no known drug allergies Medications as per MAR Past surgical history ROS Const Constitutional: No chills, fever(s), headache(s), night sweats or abnormal sleep pattern ENT ENT: no ear pain, ear discharge, headache(s) or sore throat Resp Respiratory: Positive for cough Cough: Yes non-productive, pain with cough and wheezing; no chest congestion, hemoptysis or shortness of breath Cardio Cardiology: No chest pain at rest or shortness of breath Neuro Neurology: No behavioral changes, confusion or headache(s) Psych Psychiatric: No abnormal sleep pattern, No behavioral changes, No confusion Aller/Imm Allergy/Immunologic: Exam Const General: cooperative, well developed HENMT Head: normal to inspection, atraumatic Ears: hearing grossly normal bilaterally Nose: nasal discharge clear Face and sinus: normal facial exam Mouth: oral mucosae normal Throat: abnormal tonsil bilaterally Resp Effort & Inspection: normal respiratory effort, no audible wheezes Auscultation: Palpation: normal PMI Rate: regular rate Rhythm: regular rhythm Neuro General: alert, CN's II-XI intact bilaterally Psych Appearance: grossly normal Mental Status: mental status grossly normal Assessment & Plan 61-year-old arrives here for surveillance colonoscopy. She was explained alternatives, risk, benefits including not withstanding bleeding, infection, sepsis, perforation, need for emergent surgery . She will have an ASA of 2
[2021-05-30 11:45] VITALS: BP 102/75; BP 132/84; PULSE 66; RESP 16; TEMP 36.8; O2SAT 95
[2021-05-30 12:23] VITALS: BP 132/84
== END 2021-05-30 23:59 | disposition home or self-care (01) ==
LOC: EN 09:15 → AC 09:16
PROVIDERS: PCP Internal Medicine; Referring Provider Internal Medicine; Visit Provider Internal Medicine Gastroenterology
PROC: 0DJD8ZZ Inspection of Lower Intestinal Tract, Via Natural or Artificial Opening Endoscopic (ICD-10-PCS; CPT 45378; principal; 2021-05-30 10:10)
DX: Z12.11 Encounter for screening for malignant neoplasm of colon (principal); E11.22 Type 2 diabetes mellitus with diabetic chronic kidney disease; K57.30 Diverticulosis of large intestine without perforation or abscess without bleeding; K63.5 Polyp of colon; K62.89 Other specified diseases of anus and rectum; E78.00 Pure hypercholesterolemia, unspecified; I12.9 Hypertensive chronic kidney disease with stage 1 through stage 4 chronic kidney disease, or unspecified chronic kidney disease; N18.9 Chronic kidney disease, unspecified; Z79.84 Long term (current) use of oral hypoglycemic drugs; Z79.899 Other long term (current) drug therapy; Z86.010 Personal history of colon polyps; Z87.891 Personal history of nicotine dependence
CPT/HCPCS: 45385; 82962; 88305; J7120; J2405

== ENCOUNTER → 2021-08-21 | Outpatient (CLI) | payer BC, SELFPAY ==
--- NOTE | 2021-08-21 08:27 | US_ITS ---
INDICATION: PROTEINURIA EXAMINATION: Ultrasound US Abdomen Complete TECHNIQUE: Prasad-scale and color Doppler imaging was performed of the abdomen. COMPARISON: None. FINDINGS: Liver: Mild hepatomegaly measuring up to 18.5 cm in the craniocaudal dimension. Diffuse hepatic steatosis. No hepatic masses. Flow in the portal vein is hepatopedal. Gallbladder: Nondilated gallbladder. Negative sonographic Reyes''s sign. No cholelithiasis or sludge. 4 mm gallbladder wall polyp. The proximal common bile duct measures 5.5 mm, which is within normal limits for the patient''s age. Pancreas: Visualized pancreatic head, body, and tail are unremarkable. Spleen: Mild splenomegaly measuring up to 12.9 cm in craniocaudal dimension. The splenic parenchyma is otherwise homogeneous and normal in echotexture. Kidneys: Right kidney measures 11.5 x 5.5 x 5.8 cm. The left kidney measures 11.8 x 5.2 x 5.5 cm. Normal size and morphology of both kidneys. Normal parenchyma. No echogenic calculi. No hydronephrosis. Vessels: Submitted longitudinal images of the intra-abdominal aorta demonstrate no gross abnormalities and are unremarkable. The IVC is patent. US/Abdomen Complete IMPRESSION: 1. No acute findings. 2. Mild hepatomegaly and diffuse hepatic steatosis. No hepatic masses. 3. Mild splenomegaly. 4. Normal appearance of the kidneys. Electronically Signed: Chava Hsieh, at 13:47 EDT ,
== END | disposition home or self-care (01) ==
PROVIDERS: PCP Internal Medicine; Referring Provider Internal Medicine; Visit Provider Internal Medicine
DX: K82.4 Cholesterolosis of gallbladder (principal); K76.0 Fatty (change of) liver, not elsewhere classified; R80.9 Proteinuria, unspecified
CPT/HCPCS: 76700

== ENCOUNTER → 2021-11-28 | Outpatient (CLI) | payer BC, SELFPAY ==
[2021-11-28 07:25] LABS: Mucous, Urine 0 SEEN /hpf (<or=2+)
[2021-11-28 10:20] LABS: Absolute Lymphocyte Count 1.68 X10^3/uL (0.83-4.51); Absolute Neutrophil Count 2.9 X10^3/uL (2.0-7.7); Basophil# 0.03 X10^3/uL; Basophil% 0.6 % (0-1); Color, Urine Yellow (Yellow); Eosinophil# 0.08 X10^3/uL; Eosinophils% 1.5 % (0-5); Glucose, Dipstick 1000 mg/dl (Normal); Hematocrit 43.8 % (37-47); Hemoglobin 14.6 g/dL (12.0-15.0); Ketone-Dipstick 15 mg/dl (Negative); Leukocyte Esterase-Dipstick 100 /ul (Negative); Lymphocyte # 1.68 X10^3/ul (0.83-4.51); Lymphocyte % 32.1 % (19-41); Mean Corp Hgb Conc 33.3 g/dL (32-36); Mean Corpuscular Hgb 28.9 pg (27.0-32.0); Mean Corpuscular Volume 86.6 fL (81-99); Mean Platelet Vol. 9.5 fl (6.2-12.0); Monocyte# 0.58 X10^3/uL; Monocyte% 11.1 % (0-10); NRBC Flagged by Analyzer 0 % (0-5); Neutrophil # 2.86 X10^3/uL (2.7-7.7); Neutrophil % 54.5 % (47-70); Nitrite-Dipstick Negative (Negative); Occult Blood-Urine 10 /ul (Negative); Platelet Count 255 K/mm3 (150-450); Protein-Dipstick 100 mg/dl (Negative); RBC Distribution Width CV 12.9 % (11.6-14.6); RBC Distribution Width SD 40.3 fl (35.1-43.9); Red Blood Count 5.06 M/mm3 (4.2-5.4); Urine Bilirubin Dipstick Negative (Negative); Urine Clarity Sl. Cloudy (Clear); Urine Urobilinogen Normal (Normal); White Blood Count 5.2 K/mm3 (4.4-11.0)
[2021-11-28 10:30] LABS: Bacteria 1+ /hpf (None Seen); Red Blood Cells-Urine 0-5 SEEN /hpf (0-5); Squamous Epithelial Cells - UA 0-5 SEEN /hpf (5-10); White Blood Cells 10-25 SEEN /hpf (0-5)
[2021-11-28 10:36] LABS: Vitamin D,25 Hydroxy 82.2 ng/mL
[2021-11-28 11:04] LABS: ALB/GLOB Ratio 0.8 RATIO (0.9-2.4); AST(SGOT) 33 U/L (15-37); Alanine Aminotransfer ALT/SGPT 39 U/L (13-56); Albumin, Serum 3.6 g/dL (3.2-5.0); Alkaline Phosphatase 74 U/L (45-117); Anion Gap 11 (5-15); BUN 33 mg/dL (7-18); BUN/Creat Ratio 31.7 RATIO (10-20); Bilirubin, Direct 0.17 mg/dL (0.00-0.30); Calcium,Total 9.8 mg/dL (8.5-10.1); Chloride 104 mmol/L (98-107); Cholesterol 192 mg/dL (200); Creatinine, Serum 1.04 mg/dL (0.55-1.02); EST Glomerular Filtration Rate 57 mL/min (>60); Est Glom Filt Rate - Afr Amer 69 mL/min (>60); Globulin 4.4 g/dL (2.2-4.2); Glucose 136 mg/dL (74-106); High Density Lipoprotein 32 mg/dL; Potassium 3.8 mmol/L (3.5-5.1); Sodium Level 138 mmol/L (136-145); Thyroid Stim Hormone (TSH) 1.49 uIU/mL (0.358-3.74); Triglycerides 461 mg/dL
[2021-11-28 11:06] LABS: Microalbumin:Creatinine Ratio 955.8 mg/g CRE (<30 mg/g CRE)
[2021-12-03 19:07] LABS: QNTFERON TB Mitogen Value > 10.00 IU/mL (.); QNTFERON TB Nil Value 0.06 IU/mL (.); QNTFERON TB1+ Ag Value 0.08 IU/mL (.); QNTFERON TB2+ Ag Value 0.08 IU/mL (.)
[2021-12-04 08:27] LABS: QNTIFERON TB Positive Criteria Negative (Negative)
== END | disposition home or self-care (01) ==
LOC: MTLAB 07:17
PROVIDERS: PCP Internal Medicine; Referring Provider Internal Medicine; Visit Provider Internal Medicine
DX: E55.9 Vitamin D deficiency, unspecified (principal); L40.59 Other psoriatic arthropathy; E11.9 Type 2 diabetes mellitus without complications; E78.2 Mixed hyperlipidemia; L40.0 Psoriasis vulgaris; D22.5 Melanocytic nevi of trunk; L82.1 Other seborrheic keratosis; L57.8 Other skin changes due to chronic exposure to nonionizing radiation; L57.0 Actinic keratosis; Z08 Encounter for follow-up examination after completed treatment for malignant neoplasm; Z85.820 Personal history of malignant melanoma of skin; Z79.899 Other long term (current) drug therapy; Z71.89 Other specified counseling
CPT/HCPCS: 36415; 80053; 80061; 81001; 82043; 82248; 82306; 82570; 84443; 85025; 86480

== ENCOUNTER → 2022-05-30 | Outpatient (CLI) | payer BC, SELFPAY ==
--- NOTE | 2022-05-30 14:22 | US_ITS ---
HISTORY: Bloating. TECHNIQUE: Transabdominal and transvaginal pelvic ultrasound was performed with poole scale and color Doppler evaluation. 126 images. COMPARISON: None. FINDINGS: UTERUS: 7.8 x 5.4 x 5.7 cm. Anteverted with heterogeneous echotexture and lobulation. Multiple rounded heterogeneous masses measuring up to 5.3 x 5.1 x 6.8 cm with calcification in the fundus and 5.2 x 4.4 x 4.1 cm with calcification in the posterior lower uterine segment. ENDOMETRIAL THICKNESS: 2 mm. OVARIES: Not visualized. FREE FLUID: None. US/Pelvic w/ Transvaginal IMPRESSION: Enlarged leiomyomatous uterus. Nonvisualization of the ovaries. Electronically Signed: Marta Tapia MD at 11:25 EST ,
== END | disposition home or self-care (01) ==
LOC: US 14:20
PROVIDERS: PCP Internal Medicine; Referring Provider Internal Medicine; Visit Provider Internal Medicine
DX: R14.0 Abdominal distension (gaseous) (principal)
CPT/HCPCS: 76830; 76856

== ENCOUNTER 2022-06-19 22:13 | Emergency (ER) | payer BC, SELFPAY ==
[2022-06-19 22:13] VITALS: BP 109/72; PULSE 70; RESP 18; TEMP 36.7; O2SAT 99; BMI 30.8
--- NOTE | 2022-06-19 22:29 | EX.ED.DYSGE1 ---
HPI History of Present Illness Chief Complaint: GI Bleed Informant: patient Onset/Context/Timing Onset: Days Context: Gradual Onset Timing: Waxes and wanes Narrative Narrative: Patient presents secondary to rectal pain and hemorrhoid bleeding. Patient is currently being treated for hemorrhoids with laser treatment from Dr. Arturo Benz in [place]. She has had 2 treatments, the most recent being on Thursday. She states after this treatment she had increased bleeding and pain. She saw her PCP today who gave her some Vicodin to help control pain. She was told she needed to come in for some lab work and an order was reportedly sent to the hospital. Patient does believe that the PCP spoke with Dr. Benz today, but does not know what his instructions were. [facility] and bleeding. [facility] Medical History Alcohol use Back pain Cancer Chronic neck and back pain CPAP (continuous positive airway pressure) dependence Depression Diabetes Dietary restriction Fatigue Former smoker High cholesterol History of steroid therapy History of stress test Hypertension Migraine headache Post-menopausal Shortness of breath on exertion Shoulder pain Sleep apnea Wears dentures Wears glasses Home Medications amlodipine 5 mg tablet 5 mg PO DAILY 05/10/18 [History Last Taken Unknown] metformin 500 mg tablet 500 mg PO BID 05/10/18 [History Last Taken Unknown] metoprolol succinate 25 mg capsule sprinkle, ext. release 24 hr 25 mg PO DAILY 05/10/18 [History Last Taken Unknown] biotin 500 mcg capsule 1 mg PO DAILY 05/28/21 [History Last Taken Unknown] cholecalciferol (vitamin D3) 125 mcg (5,000 unit) tablet (Vitamin D3) 250 mcg PO DAILY 05/28/21 [History Last Taken Unknown] dapagliflozin 5 mg tablet (Farxiga) 5 mg PO DAILY 05/28/21 [History Last Taken Unknown] exenatide microspheres 2 mg/0.85 mL subcutaneous auto-injector (Bydureon BCise) 2 mg subcut QWEEK DIABETES 05/28/21 [History Last Taken Unknown] grtjlgibhyf-fdi-cubswxwvi-vitC capsule (Glucosamine Complex-MSM capsule) 1 cap PO DAILY 05/28/21 [History Last Taken Unknown] guselkumab 100 mg/mL subcutaneous auto-injector (Tremfya) 100 mg subcut .Q56 DAYS 05/28/21 [History Last Taken Unknown] losartan 100 mg-hydrochlorothiazide 25 mg tablet 1 tab PO DAILY 05/28/21 [History Last Taken Unknown] omega-3 fatty acids 1,000 mg PO DAILY 05/28/21 [History Last Taken Unknown] rosuvastatin 20 mg tablet 20 mg PO DAILY 05/28/21 [History Last Taken Unknown] potassium chloride 20 mEq tablet,extended release 20 meq PO BID #6 tabs 06/20/22 [Rx Last Taken Unknown] Allergy/AdvReac Type Severity Reaction Status Date / Time No Known Allergies Allergy Verified 06/19/22 22:17 Surgical History Hx of colonoscopy Hx of surgical procedure Social History Smoking Status: Former smoker alcohol intake: current ROS ROS ED Constitutional Constitutional ED: Denies chills or fever(s) Eyes Eyes: Denies change in vision or discharge from eye(s) ENT ENT ED: Denies discharge from eye(s), rhinorrhea or sore throat Cardiovascular Cardiovascular: Denies chest pain or palpitations Respiratory/Chest Respiratory/Chest: Denies cough or dyspnea Gastrointestinal Gastrointestinal: Reports other Details: Rectal pain and bleeding ; Denies abdominal pain, nausea or vomiting Genitourinary Genitourinary ED: Denies dysuria Musculoskeletal Musculoskeletal: Denies back pain or extremity pain Integumentary Denies Abrasions or rash Neurologic Neurologic: Denies headache(s) or weakness Psychiatric Psychiatric: Denies anxiety or depression Allergic/Immunologic Allergic/Immunologic ED: Denies lip swelling or urticaria EXAM Physical Exam Const Vital Signs: 06/19/22 22:13 Temperature 98.0 F Temperature Source Temporal Pulse Rate 70 Respiratory Rate 18 Blood Pressure 109/72 Blood Pressure Mean 84 Pulse Ox 99 Oxygen Delivery Method Room Air Positive well nourished and well developed General Appearance ED: well developed HEENT Reports normocephalic and head/scalp atraumatic Eyes PERRL and EOMs intact bilaterally Neck supple Chest Wall inspection of chest normal and palpation of chest normal Resp normal respiratory effort and clear to auscultation bilaterally Cardio regular rate and regular rhythm GI normal to inspection, nondistended, normoactive bowel sounds GI Narrative: Rectal examination reveals mild amount of dried blood. This area is cleansed. No obvious enlarged or bleeding hemorrhoids are noted. Palpation: soft Extremity normal to inspection Neuro oriented x3 and no sensory deficits noted Sensorium / Orientation: alert Motor Exam: strength 5/5 throughout Psych mental status grossly normal Skin no rashes or lesions noted MDM MDM MDM Narrative Medical decision making narrative: Labwork obtained to evaluate for leukocytosis, anemia, and electrolyte derangement. Patient given Anusol HC suppository. Lab Data Attestation: I reviewed the patient's lab results. Labs: Laboratory Results - last 24 hr 06/19/22 06/19/22 06/19/22 22:32 22:32 22:32 WBC 9.6 RBC 4.51 Hgb 12.9 Hct 39.2 MCV 86.9 MCH 28.6 MCHC 32.9 RDW Std Deviation 40.7 RDW Coeff of Iva 12.8 Plt Count 230 MPV 8.8 Immature Gran % (Auto) 0.900 Neut % (Auto) 78.6 H Lymph % (Auto) 12.0 L [place] % (Auto) 8.1 Eos % (Auto) 0.1 Baso % (Auto) 0.3 Absolute Neuts (auto) 7.6 Absolute Lymphs (auto) 1.15 Nucleated RBC % 0 PT 14.4 INR 1.1 APTT 28.0 Sodium 139 Potassium 2.9 L Chloride 102 Carbon Dioxide 27.0 Anion Gap 10 BUN 39 H Creatinine 1.88 H Estim Creat Clear Calc 31.70 Est GFR (MDRD) Af Amer 35 L Est GFR (MDRD) Non-Af 29 L BUN/Creatinine Ratio 20.7 H Glucose 296 H Calcium 12.3 H Treatment and Re-Evaluation :: CBC was normal white count. Hemoglobin is 10.9. Coags are unremarkable. Chemistry studies significant for potassium low at 2.9. BUN is 39 and creatinine 1.88. Patient is given a liter of IV fluid to help with hydration. She is given oral potassium replacement. Patient be discharged to home. She states she already has suppositories at home that she can use. She was given Vicodin by her PCP earlier today to help with pain. She is already on a stool softener. She was advised to follow with her primary care physician or Dr. Benz in [place]. Return instructions given. Discharge Plan Triage Chief Complaint: GI Bleed ED Provider: India Martinez Dx/Rx/DC Orders Clinical Impression: Rectal bleeding, Post-op pain Instructions: Rectal Bleeding Tx, ED Post Op Wound Check, Pain Prescriptions: New potassium chloride 20 mEq tablet extended release 20 meq PO BID Qty: 6 0RF No Action metformin 500 mg tablet 500 mg PO BID metoprolol succinate 25 mg capsule,sprinkle,ER 24hr 25 mg PO DAILY amlodipine 5 mg tablet 5 mg PO DAILY losartan-hydrochlorothiazide 100-25 mg tablet 1 tab PO DAILY biotin 500 mcg Capsule 1 mg PO DAILY Fish Oil Capsule 1,000 mg PO DAILY rosuvastatin 20 mg tablet 20 mg PO DAILY Glucosamine Complex-MSM Capsule 1 cap PO DAILY cholecalciferol (vitamin D3) [Vitamin D3] 125 mcg (5,000 unit) Tablet 250 mcg PO DAILY Farxiga 5 mg tablet 5 mg PO DAILY Bydureon BCise 2 mg/0.85 mL auto-injector 2 mg SUBCUT QWEEK Tremfya 100 mg/mL auto-injector 100 mg SUBCUT .Q56 DAYS Primary Care Provider: Jesica Wilson Referrals: Jesica Wilson DO [Primary Care Provider] - 2 Days Disposition Disposition: Home, Self Care
[2022-06-19 22:38] LABS: Absolute Lymphocyte Count 1.15 X10^3/uL (0.83-4.51); Absolute Neutrophil Count 7.6 X10^3/uL (2.0-7.7); Basophil# 0.03 X10^3/uL; Basophil% 0.3 % (0-1); Eosinophil# 0.01 X10^3/uL; Eosinophils% 0.1 % (0-5); Hematocrit 39.2 % (37-47); Hemoglobin 12.9 g/dL (12.0-15.0); Lymphocyte # 1.15 X10^3/ul (0.83-4.51); Mean Corp Hgb Conc 32.9 g/dL (32-36); Mean Corpuscular Hgb 28.6 pg (27.0-32.0); Mean Corpuscular Volume 86.9 fL (81-99); Mean Platelet Vol. 8.8 fl (6.2-12.0); Monocyte# 0.78 X10^3/uL; Monocyte% 8.1 % (0-10); NRBC Flagged by Analyzer 0 % (0-5); Neutrophil # 7.55 X10^3/uL (2.7-7.7); Neutrophil % 78.6 % (47-70); Platelet Count 230 K/mm3 (150-450); RBC Distribution Width CV 12.8 % (11.6-14.6); RBC Distribution Width SD 40.7 fl (35.1-43.9); Red Blood Count 4.51 M/mm3 (4.2-5.4); White Blood Count 9.6 K/mm3 (4.4-11.0)
[2022-06-19] MEDS: Hydrocortisone 25 MG Suppository RC (22:41)
[2022-06-19 22:48] LABS: International Normalized Ratio 1.1; Prothrombin Time (Protime)PT. 14.4 SECONDS (11.7-14.9)
[2022-06-19 22:50] LABS: Anion Gap 10 (5-15); BUN 39 mg/dL (7-18); BUN/Creat Ratio 20.7 RATIO (10-20); Calcium,Total 12.3 mg/dL (8.5-10.1); Chloride 102 mmol/L (98-107); Creatinine, Serum 1.88 mg/dL (0.55-1.02); EST Glomerular Filtration Rate 29 mL/min (>60); Est Glom Filt Rate - Afr Amer 35 mL/min (>60); Glucose 296 mg/dL (74-106); Potassium 2.9 mmol/L (3.5-5.1); Sodium Level 139 mmol/L (136-145)
[2022-06-19] MEDS: Potassium Chloride Oral Tablet 20 MEQ 40 MEQ PO (23:14)
[2022-06-19] MEDS: 0.9% Normal Saline 1,000 ML 999 ML IV (23:15)
[2022-06-20 00:01] VITALS: BP 148/78; PULSE 80; RESP 15; O2SAT 97
== END 2022-06-20 00:07 | disposition home or self-care (01) ==
PROVIDERS: Emergency Provider Emergency Medicine; PCP Internal Medicine; Visit Provider Emergency Medicine
DX: K62.5 Hemorrhage of anus and rectum (principal); G89.18 Other acute postprocedural pain; Z87.891 Personal history of nicotine dependence
CPT/HCPCS: 80048; 85025; 85610; 85730; 96360; 99283; J7030; A4216

== ENCOUNTER 2022-06-23 11:03 | Emergency (ER) | payer BC, SELFPAY ==
[2022-06-23 11:04] VITALS: BP 110/74; PULSE 79; RESP 14; TEMP 36.2; O2SAT 98; BMI 29.9
[2022-06-23 13:04] VITALS: RESP 16
--- NOTE | 2022-06-23 13:54 | US_ITS ---
STUDY: ULTRASOUND OF THE FEMALE PELVIS - COMPLETE REASON FOR EXAM: Female, 62 years old. Vaginal bleeding -- post menopausal LMP: Patient is postmenopausal. TECHNIQUE: Transvaginal TECHNICAL QUALITY: Adequate. COMPARISON: Comparison is made with prior study of May 30, 2022. FINDINGS: The uterus is anteverted and is in a midline position. The uterus measures 7.1 cm x 5.9 cm x 5.3 cm. There is a Nabothian cyst of the cervix. The endometrium measures 2.6 mm in thickness, and is hyperechoic. There is no demonstrated endometrial mass. There is evidence of a 4.8 cm x 5.4 cm x 4.3 cm uterine fibroid. This causes indentation at the level of the endometrium. Scattered calcifications are seen within it. I.U.D. - The patient does not have an I.U.D. The right ovary is non-visualized. The left ovary is non-visualized. There is no fluid in the cul-de-sac. US/Transvaginal Non- IMPRESSION: Enlarged fibroid uterus. Dominant fibroid measuring 4.8 cm x 5.45 x 4.3 cm. Calcifications are seen within it. Electronically Signed: Alcides Will MD at 16:10 EDT ,
--- NOTE | 2022-06-23 13:55 | ED.VIS.FEGU ---
HPI HPI - Female History of Present Illness Chief Complaint: Vag Bleeding Informant: patient Bleeding Issue: Positive for Vaginal bleeding Onset: Days Context: Gradual Onset Timing: Intermittent Current Severity: Mild Maximum Severity: Mild Associated Symptoms Associated Symptoms: Negative for Dysuria or Frequency Narrative Narrative: 62-year-old female history of type 2 diabetes and hemorrhoids. States has had some intermittent rectal bleeding for weeks. On Thursday started having vaginal bleeding. She denies being on any blood thinners. Said there were small clots. Not heavy bleeding. Mild lightheadedness with standing. No bruising. Prior similar symptoms: No Recent Illness/Hospitalization: No PFSH PFS Medical History Alcohol use Back pain Cancer Chronic neck and back pain CPAP (continuous positive airway pressure) dependence Depression Diabetes Dietary restriction Fatigue Former smoker High cholesterol History of steroid therapy History of stress test Hypertension Migraine headache Post-menopausal Shortness of breath on exertion Shoulder pain Sleep apnea Wears dentures Wears glasses Home Medications amlodipine 5 mg tablet 5 mg PO DAILY 05/10/18 [History Last Taken Unknown] metformin 500 mg tablet 500 mg PO BID 05/10/18 [History Last Taken Unknown] metoprolol succinate 25 mg capsule sprinkle, ext. release 24 hr 25 mg PO DAILY 05/10/18 [History Last Taken Unknown] biotin 500 mcg capsule 1 mg PO DAILY 05/28/21 [History Last Taken Unknown] cholecalciferol (vitamin D3) 125 mcg (5,000 unit) tablet (Vitamin D3) 250 mcg PO DAILY 05/28/21 [History Last Taken Unknown] dapagliflozin 5 mg tablet (Farxiga) 5 mg PO DAILY 05/28/21 [History Last Taken Unknown] exenatide microspheres 2 mg/0.85 mL subcutaneous auto-injector (Bydureon BCise) 2 mg subcut QWEEK DIABETES 05/28/21 [History Last Taken Unknown] vonmdcrudhe-zyw-rvlmzsjzx-vitC capsule (Glucosamine Complex-MSM capsule) 1 cap PO DAILY 05/28/21 [History Last Taken Unknown] guselkumab 100 mg/mL subcutaneous auto-injector (Tremfya) 100 mg subcut .Q56 DAYS 05/28/21 [History Last Taken Unknown] losartan 100 mg-hydrochlorothiazide 25 mg tablet 1 tab PO DAILY 05/28/21 [History Last Taken Unknown] omega-3 fatty acids 1,000 mg PO DAILY 05/28/21 [History Last Taken Unknown] rosuvastatin 20 mg tablet 20 mg PO DAILY 05/28/21 [History Last Taken Unknown] potassium chloride 20 mEq tablet,extended release 20 meq PO BID #6 tabs 06/20/22 [Rx Last Taken Unknown] Allergy/AdvReac Type Severity Reaction Status Date / Time acetaminophen [From Vicodin] Allergy Itching Verified 06/23/22 11:06 hydrocodone [From Vicodin] Allergy Itching Verified 06/23/22 11:06 Surgical History Hx of colonoscopy Hx of surgical procedure Social History Smoking Status: Former smoker alcohol intake: current ROS ROS ED ROS Narrative Vaginal and rectal bleeding. Review of Systems ROS Unobtainable: Denies due to encephalopathy Constitutional Constitutional ED: Denies chills or fever(s) Eyes Eyes: Denies blurry vision ENT ENT ED: Denies ear pain Cardiovascular Cardiovascular: Denies chest pain Respiratory/Chest Respiratory/Chest: Denies cough or dyspnea Gastrointestinal Gastrointestinal: Denies abdominal pain, diarrhea, melena, nausea or vomiting Genitourinary Genitourinary ED: Denies dysuria or hematuria Musculoskeletal Musculoskeletal: Denies arthralgias Integumentary Denies abscess Neurologic Neurologic: Denies headache(s) Psychiatric Psychiatric: Denies anxiety or depression Endocrine Endocrinology: Denies heat intolerance Hematologic/Lymphatic Hematologic/Lymphatic: Denies easy bleeding, easy bruising or lymphadenopathy Allergic/Immunologic Allergic/Immunologic ED: Denies mouth swelling EXAM Physical Exam Narrative Exam Narrative: Well up. 62-year-old female. Vital signs stable afebrile. H EENT exam unremarkable. Moist mucous membranes. Neck nontender no lymphadenopathy. Lungs clear to auscultation bilaterally. Heart regular rhythm no murmur. Abdomen soft nontender. Moving all 4 extremities. Calves are nontender that edema or cords. No significant bruising. Skin no rashes. Back nontender. Neurologically she is awake and alert. Pelvic exam done with female nurse present in room. Speculum exam small amount of blood in the vaginal vault. No clots. Os closed. Bimanual exam she has a uterine fullness. But no significant pain. No adnexal pain I do not appreciate any adnexal masses. There is no discharge. Const Vital Signs: 06/23/22 11:04 06/23/22 13:04 06/23/22 15:04 Temperature 97.1 F L Temperature Source Temporal Pulse Rate 79 Respiratory Rate 14 16 16 Blood Pressure 110/74 Blood Pressure Mean 86 Pulse Ox 98 Oxygen Delivery Method Room Air Positive well nourished and well developed; Negative for cachectic, contractures or unkempt General Appearance ED: well developed and NAD; Negative for unkempt, cachectic, contractures or pallor Nutritional Appearance: Negative for cachectic HEENT Reports moist mucous membranes Negative for trauma or tenderness Eyes PERRL and EOMs intact bilaterally General Eye ED: Negative for pale conjunctiva or scleral icterus Neck no lymphadenopathy, supple and no JVD General: Negative for other Thyroid: Negative for tender Lymph Lymphatic: Negative for other Chest Wall inspection of chest normal and palpation of chest normal Chest: Negative for other Resp normal respiratory effort and clear to auscultation bilaterally Effort and Inspection: Negative for pain with movement Auscultation: Negative for rales, rhonchi or wheezes Cardio regular rate, regular rhythm, S1 normal heart sound, no murmurs and no JVD GI normal to inspection, nondistended, normoactive bowel sounds, soft to palpation, non-tender and no masses Auscultation: normoactive bowel sounds Palpation: Negative for tender or guarding Back/Spine no CVA tenderness General Back: Negative for CVA tenderness Cervical Spine: Negative for cervical spine tenderness Thoracic Spine / Upper Back: Negative for thoracic spinal tenderness Lumbar Spine / Lower Back: Negative for lumbar spinal tenderness Sacrum: Negative for other Extremity normal to inspection and full ROM General Extremety ED: Negative for edema or tenderness General Extremity: Negative for edema Neuro oriented x3 and CN's II-XII intact bilaterally Sensorium / Orientation: alert, oriented to person, oriented to place and oriented to time; Negative for confused, lethargic or stuporous Motor Exam: strength 5/5 throughout Psych mental status grossly normal Appearance: Negative for unkempt Attitude: No agitated Speech: No other Mood & Affect: Negative for depressed, anxious or tearful Skin no rashes or lesions noted and no wounds General Skin Exam: Negative for jaundice or pallor Rashes: No rashes noted Trauma: Negative for other MDM MDM MDM Narrative Medical decision making narrative: 62-year-old female with vaginal bleeding for last 3 days. Intermittent. Mild. She also has a history of some rectal bleeding as a history of hemorrhoids. She is on no blood thinners. Screening labs will be obtained. Pelvic exam and pelvic ultrasound to be obtained. Repeat exam patient is doing well at 430. I went over ultrasound results with her and family present in room. I spoke with the corporate recycling manager on-call for Dr. Faustino Garcia and they will ensure close follow-up and have the patient call the office tomorrow. They will follow-up for postmenopausal vaginal bleeding and uterine fibroid. I discussed all this with the patient. Patient wanted to stay in the area for [employer]OP[employer]NAGER evaluation. She will also be instructed to get her potassium prescription filled and start taking her potassium since it was low today. She was given k-dur here. History & Record Review Additional record(s) reviewed:: Other Lab Data Attestation: I reviewed the patient's lab results. Lab results narrative: CBC shows a white count 17.2. H&H 11.3 and 33.4. Platelets 379. Electrolytes show a potassium of 2.5. Gap is 7. BUN and creatinine of 46 and 1.76. Has a history of renal insufficiency. Liver enzymes are unremarkable. Glucose 163. Patient's hemoglobin is lower than its been previously was 14 and 12. It is coming down and is now 11.3. She has chronic renal insufficiency which is her baseline. Patient has chronic hypokalemia. She has a potassium prescription but has not had it filled yet. Labs: Laboratory Results - last 24 hr 06/23/22 06/23/22 14:05 14:05 WBC 17.2 H RBC 3.91 L Hgb 11.3 L Hct 33.4 L MCV 85.4 MCH 28.9 MCHC 33.8 RDW Std Deviation 40.3 RDW Coeff of Iva 13.0 Plt Count 379 MPV 8.8 Immature Gran % (Auto) 0.500 Neut % (Auto) 81.3 H Lymph % (Auto) 10.9 L [place] % (Auto) 7.0 Eos % (Auto) 0.1 Baso % (Auto) 0.2 Absolute Neuts (auto) 14.0 H Absolute Lymphs (auto) 1.88 Nucleated RBC % 0 Sodium 134 L Potassium 2.5 L* Chloride 100 Carbon Dioxide 27.0 Anion Gap 7 BUN 46 H Creatinine 1.76 H Estim Creat Clear Calc 33.86 Est GFR (MDRD) Af Amer 38 L Est GFR (MDRD) Non-Af 31 L BUN/Creatinine Ratio 26.1 H Glucose 163 H Calcium 10.0 Total Bilirubin 0.50 AST 16 ALT 22 Alkaline Phosphatase 101 Total Protein 7.5 Albumin 2.7 L Globulin 4.8 H Albumin/Globulin Ratio 0.6 L Radiography Diagnostic Testing: Clinical Impression(s) from Imaging Studies Transvaginal US 06/23/22 13:54 IMPRESSION: Enlarged fibroid uterus. Dominant fibroid measuring 4.8 cm x 5.45 x 4.3 cm. Calcifications are seen within it. Electronically Signed: Alcides Will MD at 16:10 EDT , Discharge Plan Triage Chief Complaint: Vag Bleeding ED Provider: Sundar Butt Dx/Rx/DC Orders Clinical Impression: Vaginal bleeding, Rectal bleeding, Fibroid uterus, Anemia, Chronic hypokalemia Instructions: ED Hypokalemia, ED Lower GI Bleeding (Stable), ED Uterine Fibroids Prescriptions: No Action metformin 500 mg tablet 500 mg PO BID metoprolol succinate 25 mg capsule,sprinkle,ER 24hr 25 mg PO DAILY amlodipine 5 mg tablet 5 mg PO DAILY losartan-hydrochlorothiazide 100-25 mg tablet 1 tab PO DAILY biotin 500 mcg Capsule 1 mg PO DAILY Fish Oil Capsule 1,000 mg PO DAILY rosuvastatin 20 mg tablet 20 mg PO DAILY Glucosamine Complex-MSM Capsule 1 cap PO DAILY cholecalciferol (vitamin D3) [Vitamin D3] 125 mcg (5,000 unit) Tablet 250 mcg PO DAILY Farxiga 5 mg tablet 5 mg PO DAILY Bydureon BCise 2 mg/0.85 mL auto-injector 2 mg SUBCUT QWEEK Tremfya 100 mg/mL auto-injector 100 mg SUBCUT .Q56 DAYS potassium chloride 20 mEq tablet extended release 20 meq PO BID Qty: 6 0RF Primary Care Provider: Jesica Wilson Referrals: Jesica Wilson DO [Primary Care Provider] - As soon as possible Juana Patrick MD [Med Staff - Active Staff] - 1 Day Activity Restrictions/Additional Instructions: Call and follow-up with Dr. Juana Patrick's office tomorrow. I just spoke with him on the phone and they will get you in the next several days. They can look at your ultrasound regarding the uterine fibroid and they may also want to do a uterine biopsy because of the bleeding. Make sure to get your potassium prescription filled and start taking that your potassium is low today. Plenty of fruits and vegetables to increase your potassium also. You also need follow-up for the rectal bleeding you should get a colonoscopy for that. Follow-up with your primary care physician or call and follow-up with Dr. Larson who is a [facility] here in [place] and they can set you up for colonoscopy. Disposition Disposition: Home, Self Care
[2022-06-23 14:18] LABS: Absolute Lymphocyte Count 1.88 X10^3/uL (0.83-4.51); Basophil# 0.04 X10^3/uL; Basophil% 0.2 % (0-1); Eosinophil# 0.02 X10^3/uL; Eosinophils% 0.1 % (0-5); Hematocrit 33.4 % (37-47); Hemoglobin 11.3 g/dL (12.0-15.0); Lymphocyte # 1.88 X10^3/ul (0.83-4.51); Lymphocyte % 10.9 % (19-41); Mean Corp Hgb Conc 33.8 g/dL (32-36); Mean Corpuscular Hgb 28.9 pg (27.0-32.0); Mean Corpuscular Volume 85.4 fL (81-99); Mean Platelet Vol. 8.8 fl (6.2-12.0); Monocyte# 1.21 X10^3/uL; NRBC Flagged by Analyzer 0 % (0-5); Neutrophil # 13.99 X10^3/uL (2.7-7.7); Neutrophil % 81.3 % (47-70); Platelet Count 379 K/mm3 (150-450); RBC Distribution Width SD 40.3 fl (35.1-43.9); Red Blood Count 3.91 M/mm3 (4.2-5.4); White Blood Count 17.2 K/mm3 (4.4-11.0)
[2022-06-23 14:41] LABS: ALB/GLOB Ratio 0.6 RATIO (0.9-2.4); AST(SGOT) 16 U/L (15-37); Alanine Aminotransfer ALT/SGPT 22 U/L (13-56); Albumin, Serum 2.7 g/dL (3.2-5.0); Alkaline Phosphatase 101 U/L (45-117); Anion Gap 7 (5-15); BUN 46 mg/dL (7-18); BUN/Creat Ratio 26.1 RATIO (10-20); Chloride 100 mmol/L (98-107); Creatinine, Serum 1.76 mg/dL (0.55-1.02); EST Glomerular Filtration Rate 31 mL/min (>60); Est Glom Filt Rate - Afr Amer 38 mL/min (>60); Estimated Creatinine Clearance 33.86 ml/min; Globulin 4.8 g/dL (2.2-4.2); Glucose 163 mg/dL (74-106); Potassium 2.5 mmol/L (3.5-5.1); Protein, Total 7.5 g/dL (6.4-8.2); Sodium Level 134 mmol/L (136-145)
[2022-06-23 15:04] VITALS: RESP 16
[2022-06-23] MEDS: Potassium Chloride Oral Tablet 20 MEQ 40 MEQ PO (15:29)
== END 2022-06-23 16:50 | disposition home or self-care (01) ==
PROVIDERS: Emergency Provider Emergency Medicine; PCP Internal Medicine; Visit Provider Emergency Medicine
DX: D25.9 Leiomyoma of uterus, unspecified (principal); E11.22 Type 2 diabetes mellitus with diabetic chronic kidney disease; I12.9 Hypertensive chronic kidney disease with stage 1 through stage 4 chronic kidney disease, or unspecified chronic kidney disease; N18.9 Chronic kidney disease, unspecified; K62.5 Hemorrhage of anus and rectum; E87.6 Hypokalemia; E78.00 Pure hypercholesterolemia, unspecified; N95.0 Postmenopausal bleeding; Z79.84 Long term (current) use of oral hypoglycemic drugs; Z79.899 Other long term (current) drug therapy; Z87.891 Personal history of nicotine dependence
CPT/HCPCS: 76830; 80053; 85025; 99285; A4216

== ENCOUNTER → 2022-06-27 | Outpatient (CLI) | payer BC, SELFPAY ==
--- NOTE | 2022-06-27 | EMB_PTH ---
PATIENT: SUSANNE MEJIA LOC: [facility] U#:[id number] AGE/SX: 62/F ROOM: RE06/27/[address]: Dr. Juana Patrick MD : 1960 BED: DIS: 06/27/2022 SPEC #: [id number] RECD: 06/27/22 14:17 STATUS: LIVIA RE #: [id number] MILAN: 06/27/22 00:[address]: Juana Patrick DEPT: SURGICAL PATHOLOGY RECD BY: Jeancarlos Bacon ENTERED: 06/30/22 09:25 SP TYPE: ENDOM BX/C VIOLETA DR: Dr. Jesica Wilson DO Tissues: Endometrium, NOS Procedures: Surgery Specimen Level IV HEADER OPERATION: Endometrial biopsy PRE-OP DIAGNOSIS: Abnormal uterine bleeding TISSUE SUBMITTED: Endometrial lining MICROSCOPIC DIAGNOSIS Endometrial biopsy: Strips of benign endometrial epithelium. Fragments of benign endocervical epithelium and mucous. See comment. SJ:yaw 07/01/2022 COMMENT The specimen predominantly consists of mucoid tissue. Clinical correlation and appropriate follow up are necessary. MICROSCOPIC DESCRIPTION Slides are reviewed. GROSS DESCRIPTION Received is one container labeled with the patient's name and not further designated. The specimen consists of multiple irregular fragments of horton mucoid tissue that in aggregate measure 1.5 x 1.5 x 0.2 cm. The specimen is totally submitted in one cassette. / OK:yaw 06/30/2022 TC:4 CPT: 66461
[2022-07-07 15:38] LABS: HPV APTIMA, High Risk Positive (Negative)
== END | disposition home or self-care (01) ==
LOC: LABSPEC 15:26
PROVIDERS: PCP Internal Medicine; Referring Provider Obstetrics & Gynecology; Visit Provider Obstetrics & Gynecology
DX: Z12.4 Encounter for screening for malignant neoplasm of cervix (principal); N93.9 Abnormal uterine and vaginal bleeding, unspecified; R10.2 Pelvic and perineal pain
CPT/HCPCS: 87070; 87205; 87624; 88175; 88305; G0145

== ENCOUNTER 2022-07-02 09:05 | Observation (INO) | payer BC, SELFPAY ==
[2022-07-02 09:06] VITALS: BP 135/79; PULSE 71; RESP 18; TEMP 35.5; O2SAT 96; BMI 30.1
--- NOTE | 2022-07-02 09:26 | CT_ITS ---
STUDY: CT ABDOMEN AND PELVIS WITH CONTRAST REASON FOR EXAM: Female, 62 years old. Diffuse abdominal pain RADIATION DOSAGE (If Supplied By Facility): CTDIvol = ( 16.26 ) mGy, DLP = ( 1168.57 ) mGycm TECHNIQUE: Transaxial images were obtained from the dome of the diaphragm to the symphysis pubis with oral contrast. Oral and amp; IV Gastrografin and amp; 100mL Isovue-300 was administered. Sagittal and coronal images were reconstructed. Individualized dose optimization techniques were used for this CT. COMPARISON: None. FINDINGS: The visualized lung bases are unremarkable. The visualized portions of the heart are within normal limits. Mild fatty infiltration of the liver seen, no suspicious lesion Normal gallbladder and extrahepatic biliary system. Normal spleen. Normal pancreas. Normal bilateral adrenal glands. No obstructive uropathy, there are bilateral simple renal cysts. There is a small hiatal hernia. Normal small intestine. Retained stool in the colon with scattered colonic diverticula but no CT evidence of acute diverticulitis. The appendix is visualized and appears normal. Appendix seen on coronal recon images 40 through 60 There is abnormal thickening of the distal sigmoid colon and rectum suggesting a focal proctitis. There is a minimal amount of perirectal inflammation but no suspicious adenopathy. There is a 3.01 x 2.52 cm cystic structure left of the rectum which could represent an early inflammatory process, though it does not contain air. It could also represent the left ovary. There is diffuse atherosclerotic calcification of the abdominal aorta, without a demonstrated aneurysm. Normal inferior vena cava. Normal retroperitoneum. Normal urinary bladder. Uterus is present and enlarged containing multiple calcifications suggesting underlying fibroids. The endometrium cannot be accurately evaluated with CT. Normal abdominal wall. There are diffuse degenerative changes of the visualized lumbar spine, and pelvis. CT/Abdomen/Pelvis WITH Contrast IMPRESSION: Abnormal submucosal thickening of the distal sigmoid colon and rectum with associated perirectal inflammation consistent with a proctitis. There is an associated 3.01 x 2.52 cm cystic structure left of the rectum. This could represent an early inflammatory process though there is no air within this structure could also represent the left ovary (if not previously removed) Scattered colonic diverticula, no CT evidence of acute diverticulitis. Uterus is present and enlarged, and contains multiple calcifications suggesting underlying fibroids. The endometrium cannot be accurately evaluated with CT. Normal appendix visualized Fatty liver, no discrete lesion Electronically Signed: Prince Robertson MD at 11:40 EDT ,
--- NOTE | 2022-07-02 09:28 | EDS_ITS ---
HPI History of Present Illness Chief Complaint: Abd Pain Detail of Chief Complaint: Abdominal pain Informant: patient Narrative Narrative: Patient presents with abdominal pain that she has had for several months. Patient states over the last 2 weeks its been worse. Patient states this is her third visit to the ER for this. Patient has had recent ultrasound of her abdomen that showed fibroid tumor in her uterus. Patient followed up with [facility] and was given options for treatment. Patient also has had some intermittent rectal bleeding and history of hemorrhoids. She complains of lower abdominal pain. She rates her pain a 10 out of 10. She states that she has had low-grade fevers at home up to 99. She is scheduled to see a general surgeon tomorrow. Patient denies any vomiting or diarrhea. Last bowel movement 2 days ago. She denies dysuria or urgency or frequency but states sometimes it is hard starting her stream. Patient also complains of low back pain which she has had for some time and has history of a herniated disc at L4-5. She denies any pain rating down her legs. She denies loss of bowel or bladder function. She denies weakness of the extremities [facility] Medical History Alcohol use Back pain Cancer Chronic neck and back pain CPAP (continuous positive airway pressure) dependence Depression Diabetes Dietary restriction Fatigue Former smoker High cholesterol History of steroid therapy History of stress test Hypertension Migraine headache Post-menopausal Shortness of breath on exertion Shoulder pain Sleep apnea Wears dentures Wears glasses Home Medications amlodipine 5 mg tablet 5 mg PO DAILY 05/10/18 [History Last Taken Unknown] metoprolol succinate 25 mg capsule sprinkle, ext. release 24 hr 25 mg PO DAILY 05/10/18 [History Last Taken Unknown] biotin 500 mcg capsule 1 mg PO DAILY 05/28/21 [History Last Taken Unknown] cholecalciferol (vitamin D3) 125 mcg (5,000 unit) tablet (Vitamin D3) 250 mcg PO DAILY 05/28/21 [History Last Taken Unknown] dapagliflozin 5 mg tablet (Farxiga) 5 mg PO DAILY 05/28/21 [History Last Taken Unknown] exenatide microspheres 2 mg/0.85 mL subcutaneous auto-injector (BydureNeohapsis BCise) 2 mg subcut QWEEK DIABETES 05/28/21 [History Last Taken Unknown] tbxwsyidmmg-wum-stgqcfhjr-vitC capsule (Glucosamine Complex-MSM capsule) 1 cap PO DAILY 05/28/21 [History Last Taken Unknown] guselkumab 100 mg/mL subcutaneous auto-injector (Tremfya) 100 mg subcut .Q56 DAYS 05/28/21 [History Last Taken Unknown] losartan 100 mg-hydrochlorothiazide 25 mg tablet 1 tab PO DAILY 05/28/21 [History Last Taken Unknown] omega-3 fatty acids 1,000 mg PO DAILY 05/28/21 [History Last Taken Unknown] rosuvastatin 20 mg tablet 20 mg PO DAILY 05/28/21 [History Last Taken Unknown] potassium chloride 20 mEq tablet,extended release 20 meq PO BID #6 tabs 06/20/22 [Rx Last Taken Unknown] metformin 500 mg tablet 1,000 mg PO BID 06/27/22 [History Last Taken Unknown] oxycodone-acetaminophen 5 mg-325 mg tablet (Percocet) 1 tab PO Q6H PRN pain 6 days #14 tabs 06/30/22 [Rx Last Taken Unknown] Allergy/AdvReac Type Severity Reaction Status Date / Time acetaminophen [From Vicodin] Allergy Itching Verified 07/02/22 09:08 hydrocodone [From Vicodin] Allergy Itching Verified 07/02/22 09:08 Surgical History Hx of colonoscopy Hx of surgical procedure Social History Smoking Status: Former smoker alcohol intake: current ROS ROS ED Review of Systems ROS Unobtainable: other Constitutional Constitutional ED: Reports lethargy; Denies chills, fever(s), sweats or weight loss Eyes Eyes: Denies blurry vision, change in vision or diplopia ENT ENT ED: Denies rhinorrhea or sore throat Cardiovascular Cardiovascular: Reports chest pain and racing heartbeat; Denies orthopnea Respiratory/Chest Respiratory/Chest: Reports dyspnea and dyspnea on exertion; Denies cough, orthopnea or sputum Gastrointestinal Gastrointestinal: Reports abdominal pain; Denies diarrhea, nausea or vomiting Genitourinary Genitourinary ED: Denies dysuria, hematuria or urinary frequency Musculoskeletal Musculoskeletal: Reports back pain; Denies arthralgias, myalgias or neck pain Integumentary Denies abscess, Abrasions or rash Neurologic Neurologic: Denies headache(s) or weakness Psychiatric Psychiatric: Denies anxiety, depression or suicidal thoughts Endocrine Endocrinology: Denies polydipsia, polyphagia or polyuria Hematologic/Lymphatic Hematologic/Lymphatic: Denies easy bleeding, easy bruising or lymphadenopathy Allergic/Immunologic Allergic/Immunologic ED: Denies mouth swelling, tongue swelling or urticaria EXAM Physical Exam Const Vital Signs: 07/02/22 09:06 Temperature 96 F L Temperature Source Temporal Pulse Rate 71 Respiratory Rate 18 Blood Pressure 135/79 H Blood Pressure Mean 97 Pulse Ox 96 Oxygen Delivery Method Room Air Positive well nourished and well developed General Appearance ED: well developed and NAD HEENT Reports TM's clear and moist mucous membranes normocephalic and atraumatic; Negative for trauma or tenderness Tympanic Membrane ED: Yes TM's clear Eyes PERRL and EOMs intact bilaterally General Eye ED: Negative for pale conjunctiva or scleral icterus Neck no lymphadenopathy, supple and no JVD General: Negative for tenderness Chest Wall inspection of chest normal and palpation of chest normal Chest: Negative for tenderness Resp normal respiratory effort and clear to auscultation bilaterally Effort and Inspection: Negative for respiratory distress or pain with movement Auscultation: Negative for rhonchi, wheezes or diminished lung sounds Cardio regular rate, regular rhythm, S1 normal heart sound, S2 normal heart sound and no murmurs Peripheral Pulses: pulses 2+ throughout GI normal to inspection, nondistended, normoactive bowel sounds, soft to palpation, non-distended and no masses GI Narrative: Diffuse tenderness over the lower abdomen right lower quadrant as well as supra pubic and left lower quadrant. There are some mild guarding. There is no rebound rigidity or peritoneal signs. No masses palpated. Back/Spine no CVA tenderness and no thoracic nor lumbar tenderness Extremity normal to inspection General Extremety ED: Negative for edema General Extremity: Negative for edema Neuro oriented x3, CN's II-XII intact bilaterally, no sensory deficits noted and gait normal Sensorium / Orientation: awake, alert, oriented to person, oriented to place and oriented to time Motor Exam: strength 5/5 throughout and strength abnormal Psych mental status grossly normal Skin no rashes or lesions noted and no wounds MDM MDM MDM Narrative Medical decision making narrative: Patient presents with lower abdominal pain x2 months with several visits to the ER and seen by [facility]. Patient will have an outpatient MRI scheduled to [facility] l[facility] her lower abdominal pain and fibroid uterus. Patient rates her pain a 10 out of 10. Etiology of her pain unclear although she has not had a CT scan of her abdomen pelvis during her visits. I did obtain basic lab work that showed a normal white count of 5.7 with a hemoglobin 11.5 and a hematocrit of 35 with a platelet count 280. Chemistries unremarkable. Lactate was normal at 0.8. LFTs were normal. Urinalysis was unremarkable. I did perform a rectal exam and there was no evidence of external hemorrhoids. Patient did have a rounded mass noted in the rectum at about the 3 o'clock position that was just slightly tender to palpation. CT scan of the abdomen pelvis obtained was read by radiology as abnormal submucosal thickening of the distal sigmoid colon and rectum with associated perirectal inflammation consistent with proctitis. There is an 3 x 2.52 cm cystic structure left of the rectum. Patient case discussed with general surgeon Dr. Chester who evaluated patient. She felt patient likely had an abscess. She found out that patient has recently over last weeks been having laser treatment of internal hemorrhoids which patient did not tell me. Patient will be admitted for antibiotics and definitive care of suspected rectal abscess. Lab Data Labs: Laboratory Results - last 24 hr 07/02/22 07/02/22 07/02/22 09:50 09:50 09:50 WBC 5.7 RBC 4.02 L Hgb 11.5 L Hct 34.8 L MCV 86.6 MCH 28.6 MCHC 33.0 RDW Std Deviation 41.1 RDW Coeff of Iva 13.2 Plt Count 280 MPV 8.4 Immature Gran % (Auto) 0.300 Neut % (Auto) 65.4 Lymph % (Auto) 23.8 [place] % (Auto) 9.1 Eos % (Auto) 0.9 Baso % (Auto) 0.5 Absolute Neuts (auto) 3.7 Absolute Lymphs (auto) 1.36 Nucleated RBC % 0 Sodium 139 Potassium 3.4 L Chloride 105 Carbon Dioxide 28.0 Anion Gap 6 BUN 13 Creatinine 0.98 Estim Creat Clear Calc 60.81 Est GFR (MDRD) Af Amer 74 Est GFR (MDRD) Non-Af 61 BUN/Creatinine Ratio 13.2 Glucose 150 H Lactic Acid 0.8 Calcium 9.3 Total Bilirubin 0.40 AST 17 ALT 21 Alkaline Phosphatase 66 Total Protein 7.4 Albumin 3.0 L Globulin 4.4 H Albumin/Globulin Ratio 0.7 L Urine Color Urine Clarity Urine pH Ur Specific [place] Urine Protein Urine Glucose (UA) Urine Ketones Urine Occult Blood Urine Nitrite Urine Bilirubin Urine Urobilinogen Ur Leukocyte Esterase Urine RBC Urine WBC Ur Squamous Epith Cells Urine Bacteria Urine Mucus 07/02/22 10:30 WBC RBC Hgb Hct MCV MCH MCHC RDW Std Deviation RDW Coeff of Iva Plt Count MPV Immature Gran % (Auto) Neut % (Auto) Lymph % (Auto) [place] % (Auto) Eos % (Auto) Baso % (Auto) Absolute Neuts (auto) Absolute Lymphs (auto) Nucleated RBC % Sodium Potassium Chloride Carbon Dioxide Anion Gap BUN Creatinine Estim Creat Clear Calc Est GFR (MDRD) Af Amer Est GFR (MDRD) Non-Af BUN/Creatinine Ratio Glucose Lactic Acid Calcium Total Bilirubin AST ALT Alkaline Phosphatase Total Protein Albumin Globulin Albumin/Globulin Ratio Urine Color Yellow Urine Clarity Sl. Cloudy Urine pH 6.0 Ur Specific [place] 1.015 Urine Protein 100 H Urine Glucose (UA) Normal Urine Ketones Negative Urine Occult Blood 25 H Urine Nitrite Negative Urine Bilirubin Negative Urine Urobilinogen Normal Ur Leukocyte Esterase 500 H Urine RBC 0 SEEN Urine WBC 10-25 SEEN Ur Squamous Epith Cells 0 SEEN Urine Bacteria 0 SEEN Urine Mucus 0 SEEN Radiography Diagnostic Testing: Clinical Impression(s) from Imaging Studies Abdomen/Pelvis CT 07/02/22 09:26 IMPRESSION: Abnormal submucosal thickening of the distal sigmoid colon and rectum with associated perirectal inflammation consistent with a proctitis. There is an associated 3.01 x 2.52 cm cystic structure left of the rectum. This could represent an early inflammatory process though there is no air within this structure could also represent the left ovary (if not previously removed) Scattered colonic diverticula, no CT evidence of acute diverticulitis. Uterus is present and enlarged, and contains multiple calcifications suggesting underlying fibroids. The endometrium cannot be accurately evaluated with CT. Normal appendix visualized Fatty liver, no discrete lesion Electronically Signed: Prince Robertson MD at 11:40 EDT , Discharge Plan Triage Chief Complaint: Abd Pain Other Complaint: Other, Pain/Inj ED Provider: Luis Kumari Dx/Rx/DC Orders Clinical Impression: Abdominal pain, Abscess, rectum, History of rectal bleeding Prescriptions: No Action metoprolol succinate 25 mg capsule,rishabh,ER 24hr 25 mg PO DAILY amlodipine 5 mg tablet 5 mg PO DAILY metformin 500 mg tablet 1,000 mg PO BID losartan-hydrochlorothiazide 100-25 mg tablet 1 tab PO DAILY biotin 500 mcg Capsule 1 mg PO DAILY Fish Oil Capsule 1,000 mg PO DAILY rosuvastatin 20 mg tablet 20 mg PO DAILY Glucosamine Complex-MSM Capsule 1 cap PO DAILY cholecalciferol (vitamin D3) [Vitamin D3] 125 mcg (5,000 unit) Tablet 250 mcg PO DAILY Farxiga 5 mg tablet 5 mg PO DAILY Bydureon BCise 2 mg/0.85 mL auto-injector 2 mg SUBCUT QWEEK Tremfya 100 mg/mL auto-injector 100 mg SUBCUT .Q56 DAYS potassium chloride 20 mEq tablet extended release 20 meq PO BID Qty: 6 0RF oxycodone-acetaminophen [Percocet] 5-325 mg tablet 1 tab PO Q6H PRN (Reason: pain) 6 Days Qty: 14 0RF Primary Care Provider: Jesica Wilson Referrals: Jesica Wilson DO [Primary Care Provider] - Disposition Disposition: Acute Care Hospital [facility]
[2022-07-02] MEDS: Morphine 4 MG/ML Syringe IV (09:57)
[2022-07-02] MEDS: 0.9% Normal Saline 1,000 ML 150 ML IV ×2 (09:57→14:52)
[2022-07-02] MEDS: Ondansetron 4 MG/2 ML Vial IV (09:57)
[2022-07-02 10:00] LABS: Absolute Lymphocyte Count 1.36 X10^3/uL (0.83-4.51); Absolute Neutrophil Count 3.7 X10^3/uL (2.0-7.7); Basophil# 0.03 X10^3/uL; Basophil% 0.5 % (0-1); Eosinophil# 0.05 X10^3/uL; Eosinophils% 0.9 % (0-5); Hematocrit 34.8 % (37-47); Hemoglobin 11.5 g/dL (12.0-15.0); Lymphocyte # 1.36 X10^3/ul (0.83-4.51); Lymphocyte % 23.8 % (19-41); Mean Corpuscular Hgb 28.6 pg (27.0-32.0); Mean Corpuscular Volume 86.6 fL (81-99); Mean Platelet Vol. 8.4 fl (6.2-12.0); Monocyte# 0.52 X10^3/uL; Monocyte% 9.1 % (0-10); NRBC Flagged by Analyzer 0 % (0-5); Neutrophil # 3.74 X10^3/uL (2.7-7.7); Neutrophil % 65.4 % (47-70); Platelet Count 280 K/mm3 (150-450); RBC Distribution Width CV 13.2 % (11.6-14.6); RBC Distribution Width SD 41.1 fl (35.1-43.9); Red Blood Count 4.02 M/mm3 (4.2-5.4); White Blood Count 5.7 K/mm3 (4.4-11.0)
[2022-07-02 10:33] LABS: Lactic Acid 0.8 mmol/L (0.4-1.9)
[2022-07-02 10:48] LABS: Bacteria 0 SEEN /hpf (None Seen); Mucous, Urine 0 SEEN /hpf (<or=2+); Red Blood Cells-Urine 0 SEEN /hpf (0-5); Squamous Epithelial Cells - UA 0 SEEN /hpf (5-10)
[2022-07-02 10:48] LABS: ALB/GLOB Ratio 0.7 RATIO (0.9-2.4); AST(SGOT) 17 U/L (15-37); Alanine Aminotransfer ALT/SGPT 21 U/L (13-56); Alkaline Phosphatase 66 U/L (45-117); Anion Gap 6 (5-15); BUN 13 mg/dL (7-18); BUN/Creat Ratio 13.2 RATIO (10-20); Calcium,Total 9.3 mg/dL (8.5-10.1); Chloride 105 mmol/L (98-107); Creatinine, Serum 0.98 mg/dL (0.55-1.02); EST Glomerular Filtration Rate 61 mL/min (>60); Est Glom Filt Rate - Afr Amer 74 mL/min (>60); Estimated Creatinine Clearance 60.81 ml/min; Globulin 4.4 g/dL (2.2-4.2); Glucose 150 mg/dL (74-106); Potassium 3.4 mmol/L (3.5-5.1); Protein, Total 7.4 g/dL (6.4-8.2); Sodium Level 139 mmol/L (136-145)
[2022-07-02 10:52] LABS: Color, Urine Yellow (Yellow); Glucose, Dipstick Normal (Normal); Ketone-Dipstick Negative (Negative); Leukocyte Esterase-Dipstick 500 /ul (Negative); Nitrite-Dipstick Negative (Negative); Occult Blood-Urine 25 /ul (Negative); Protein-Dipstick 100 mg/dl (Negative); Specific Gravity, Urine 1.015 (1.002-1.030); Urine Bilirubin Dipstick Negative (Negative); Urine Clarity Sl. Cloudy (Clear); Urine Urobilinogen Normal (Normal)
[2022-07-02 11:00] LABS: White Blood Cells 10-25 SEEN /hpf (0-5)
[2022-07-02 11:06] VITALS: RESP 18
[2022-07-02 12:51] VITALS: BP 132/94; PULSE 72; RESP 18; TEMP 36.5; O2SAT 94
--- NOTE | 2022-07-02 13:00 | PCM.HP.STD ---
HPI - General General Date of Admission: 07/02/22 HPI Narrative SUSANNE MEJIA, is a 62 F who presents to the ER due to increased pelvic pain. Patient had her last colonoscopy 05/[address] Larson?at that time rectal varices also 3 polyps were found. Patient did see Dr. Galvan in [place] for infrared laser treatments first 1 was on June 09 and the second was on June 16. Patient's pain did get worse since then. Patient saw Dr. Patrick and is scheduled for an MRI as an outpatient. Patient came to the ER 06/23 with a white blood count of 17 however currently it is the normal limits with no shift. Patient has been having some vaginal bleeding since January. [facility] Medical History Alcohol use Back pain Cancer Chronic neck and back pain CPAP (continuous positive airway pressure) dependence Depression Diabetes Dietary restriction Fatigue Former smoker High cholesterol History of steroid therapy History of stress test Hypertension Migraine headache Post-menopausal Shortness of breath on exertion Shoulder pain Sleep apnea Wears dentures Wears glasses Home Medications amlodipine 5 mg tablet 5 mg PO DAILY heart 05/10/18 [History Last Taken 07/02/22] metoprolol succinate 25 mg capsule sprinkle, ext. release 24 hr 25 mg PO DAILY bp 05/10/18 [History Last Taken 07/02/22] biotin 500 mcg capsule 1 mg PO DAILY supplement 05/28/21 [History Last Taken Unknown] cholecalciferol (vitamin D3) 125 mcg (5,000 unit) tablet (Vitamin D3) 250 mcg PO DAILY supplement 05/28/21 [History Last Taken 07/02/22] dapagliflozin 5 mg tablet (Farxiga) 5 mg PO QHS DM 05/28/21 [History Last Taken 07/01/22] fublwarosgj-zdo-xmuuqxvga-vitC capsule (Glucosamine Complex-MSM capsule) 1 cap PO DAILY supplement 05/28/21 [History Last Taken 07/02/22] guselkumab 100 mg/mL subcutaneous auto-injector (Tremfya) 100 mg subcut .Q56 DAYS Check with primary doctor 05/28/21 [History Last Taken 3 Weeks Ago ~06/11/22] losartan 100 mg-hydrochlorothiazide 25 mg tablet 1 tab PO DAILY bp 05/28/21 [History Last Taken 07/02/22] omega-3 fatty acids 1,000 mg PO DAILY supplement\ 05/28/21 [History Last Taken 07/02/22] rosuvastatin 20 mg tablet 20 mg PO QHS cholesterol 05/28/21 [History Last Taken 07/01/22] metformin 500 mg tablet 1,000 mg PO BID DM 06/27/22 [History Last Taken 07/02/22] oxycodone-acetaminophen 5 mg-325 mg tablet (Percocet) 1 tab PO Q6H PRN pain 6 days #14 tabs 06/30/22 [Rx Last Taken 06/28/22] cyclobenzaprine 10 mg tablet 10 mg PO BID PRN PRN Pain 07/02/22 [History Last Taken 07/02/22] potassium chloride 20 mEq tablet,extended release 20 meq PO DAILY supplement 07/02/22 [History Last Taken 07/02/22] Allergy/AdvReac Type Severity Reaction Status Date / Time acetaminophen [From Vicodin] Allergy Itching Verified 07/02/22 09:08 hydrocodone [From Vicodin] Allergy Itching Verified 07/02/22 09:08 Surgical History Hx of colonoscopy Hx of surgical procedure Social History Smoking Status: Former smoker alcohol intake: current ROS Constitutional Constitutional: Denies anorexia ENT HEENT: Denies dysphagia Cardiovascular Cardiovascular: Denies chest pain Respiratory/Chest Respiratory/Chest: Denies productive cough Gastrointestinal Gastrointestinal: Reports abdominal pain and constipation; Denies diarrhea, melena or vomiting Genitourinary Genitourinary: Denies dysuria Musculoskeletal Musculoskeletal: Denies joint swelling Integumentary Integumentary: Denies jaundice Psychiatric Psychiatric: Denies anxiety Hematologic/Lymphatic Hematologic/Lymphatic: Denies easy bleeding Vital Signs Vital Signs Vital Signs: 07/02/22 09:06 Temperature 96 F L Temperature Source Temporal Pulse Rate 71 Respiratory Rate 18 Blood Pressure 135/79 H Blood Pressure Mean 97 Pulse Ox 96 Oxygen Delivery Method Room Air Weight Weight: 198 lb Body Mass Index (BMI) 30.1 Physical Exam Const alert, oriented x3 and no apparent distress HEENT normocephalic and head/scalp atraumatic Resp normal respiratory effort Cardio regular rate GI soft to palpation, non-tender and non-distended GI Narrative: CHARLIE: firm area on the left about 3cm from anus and is about 3 cm in size--mostly just firm, minimal ttp, no gross blood Palpation: Negative for guarding Extremity no clubbing, cyanosis or edema Neuro CN's II-XII intact bilaterally Psych mental status grossly normal Results Lab / Micro Data Result Diagrams: 07/02/22 09:50 07/02/22 09:50 Labs: Laboratory Results - last 24 hr 07/02/22 09:50: WBC 5.7, RBC 4.02 L, Hgb 11.5 L, Hct 34.8 L, MCV 86.6, MCH 28.6, MCHC 33.0, RDW Std Deviation 41.1, RDW Coeff of Iva 13.2, Plt Count 280, MPV 8.4, Immature Gran % (Auto) 0.300, Neut % (Auto) 65.4, Lymph % (Auto) 23.8, [place] % (Auto) 9.1, Eos % (Auto) 0.9, Baso % (Auto) 0.5, Absolute Neuts (auto) 3.7, Absolute Lymphs (auto) 1.36, Nucleated RBC % 0 07/02/22 09:50: Sodium 139, Potassium 3.4 L, Chloride 105, Carbon Dioxide 28.0, Anion Gap 6, BUN 13, Creatinine 0.98, Estim Creat Clear Calc 60.81, Est GFR (MDRD) Af Amer 74, Est GFR (MDRD) Non-Af 61, BUN/Creatinine Ratio 13.2, Glucose 150 H, Calcium 9.3, Total Bilirubin 0.40, AST 17, ALT 21, Alkaline Phosphatase 66, Total Protein 7.4, Albumin 3.0 L, Globulin 4.4 H, Albumin/Globulin Ratio 0.7 L 07/02/22 09:50: Lactic Acid 0.8 07/02/22 10:30: Urine Color Yellow, Urine Clarity Sl. Cloudy, Urine pH 6.0, Ur Specific [place] 1.015, Urine Protein 100 H, Urine Glucose (UA) Normal, Urine Ketones Negative, Urine Occult Blood 25 H, Urine Nitrite Negative, Urine Bilirubin Negative, Urine Urobilinogen Normal, Ur Leukocyte Esterase 500 H, Urine RBC 0 SEEN, Urine WBC 10-25 SEEN, Ur Squamous Epith Cells 0 SEEN, Urine Bacteria 0 SEEN, Urine Mucus 0 SEEN Radiology Impression Abdomen/Pelvis CT 04/05/23 09:26 IMPRESSION: Abnormal submucosal thickening of the distal sigmoid colon and rectum with associated perirectal inflammation consistent with a proctitis. There is an associated 3.01 x 2.52 cm cystic structure left of the rectum. This could represent an early inflammatory process though there is no air within this structure could also represent the left ovary (if not previously removed) Scattered colonic diverticula, no CT evidence of acute diverticulitis. Uterus is present and enlarged, and contains multiple calcifications suggesting underlying fibroids. The endometrium cannot be accurately evaluated with CT. Normal appendix visualized Fatty liver, no discrete lesion Electronically Signed: Prince Robertson MD at 11:40 EDT , Assessment & Plan Assessment/Plan (1) Pelvic pain: (2) Abnormal CT scan: PLAN: Hematoma versus abscess in distal rectum/perirectal PLAN: Plan We will plan to get an MRI of the pelvis to see if they can delineate hematoma versus abscess. Reviewed previous colonoscopy report patient had rectal varices be concerned that this could be a hematoma so would like to get better imaging prior to any possible thought of I&D. Also CT abdomen pelvis did not show a lot of stranding around which I would assume would happen with an abscess. We will hold off on antibiotics currently continue to monitor labs currently normal white blood cell count no shift Likely plan for exam under anesthesia, sigmoidoscope, possible I&D of abscess tomorrow morning about 945. Discussed with patient and her no further question this time. Vee Chester M.D. Pager: [phone] [facility] [address] [place] [address], [facility], [address] [place] [address] Office: [phone]
[2022-07-02 14:09] VITALS: BMI 30.1
[2022-07-02 14:15] VITALS: BP 146/77; PULSE 60; RESP 16; TEMP 37.1; O2SAT 98
[2022-07-02] MEDS: oxyCODONE 5 MG Tablet PO ×2 (16:23→22:44)
--- NOTE | 2022-07-02 18:19 | NURSING ---
pt off floor for MRI
--- NOTE | 2022-07-02 18:40 | MRI_ITS ---
We are attempting to reach an attending provider to discuss findings. An addendum with communication details will be sent when the communication is complete. STUDY: MR PELVIS WITH T WITHOUT CONTRAST REASON FOR EXAM: Female, 62 years old. hematoma vs. abcess TECHNIQUE: Standardized fat and water weighted pulse sequences were obtained in all 3 orthogonal planes, pre-and post contrast administration. IV 18ml CLARISCAN was administered for the contrast portion of the examination. COMPARISON: CT abdomen and pelvis from earlier the same day. FINDINGS: Significant distal sigmoid colon/rectal wall thickening with mass lesion extending into the vagina. Mass measures roughly 6.8 x 5.7 cm. There is central necrosis. There are multiple enlarged pelvic lymph nodes, the largest of which measures 12 mm. There is a 2.4 x 2.9 cm focal fluid signal corresponding to the 3.0 x 2.5 cm hypodensity seen on comparison CT. There is a low T2 signal enhancing nodule within this structure. No rim-enhancing fluid collection to suggest abscess. Enlarged fibroid uterus. MRI/Pelvis W/WO Contrast IMPRESSION: Findings most likely representing large rectal cancer extending into the vagina with multiple metastatic pelvic lymph nodes. Electronically Signed: Sadi Christensen DO at 21:49 EDT ,
[2022-07-02 20:15] VITALS: BP 135/84; PULSE 79; RESP 14; TEMP 37.1; O2SAT 97
[2022-07-02] MEDS: Acetaminophen 325 MG Tablet 650 MG PO (20:55)
[2022-07-02] MEDS: Atorvastatin Calcium 40 MG Tablet PO (20:56)
[2022-07-02] MEDS: Bisacodyl 10 MG Suppository 20 MG RC (20:56)
[2022-07-02] MEDS: 0.9% Saline Lock 10 ML Syringe IV ×2 (21:05→23:36)
[2022-07-02] MEDS: Lactated Ringers 1,000 ML 100 ML IV (21:05)
[2022-07-02] MEDS: Insulin Lispro 100 UNIT/ML INSULN.PEN SC (21:07)
[2022-07-02] MEDS: Empagliflozin 10 MG Tablet PO (21:09)
[2022-07-02 23:35] LABS: Bedside Glucose 161 mg/dL (74-106)
[2022-07-02] MEDS: Morphine 2 MG/ML Syringe IV (23:36)
[2022-07-03] VITALS (10 sets, daily range): BP systolic 131–173; BP diastolic 74–94; PULSE 71–108; RESP 14–18; TEMP 36.6–38.1; O2SAT 93–100; BMI 29.9
--- NOTE | 2022-07-03 | IMM_PTH ---
PATIENT: SUSANNE MEJIA LOC: MS3 U#:[id number] AGE/SX: 62/F ROOM: [facility] [place] RE07/02/[address]: Dr. Vee Chester MD : 1960 BED: 1 DIS: 07/03/2022 SPEC #: [id number] RECD: 07/04/22 11:51 STATUS: LIVIA REQ #: [id number] MILAN: 07/03/22 00:[address]: Vee Chester DEPT: IMMUNOHISTOCHEMISTRY RECD BY: Alba Peralta ENTERED: 07/04/22 11:52 SP TYPE: IMMUNO OTHR DR: MD Dr. Flavio Pitt MD Dr. Kathleen Fearon, DO Dr. Mansour Isckarus, MD Dr. Robert Field, MD Dr. Ryan Jin, MD Dr. Roger Macklis, MD Dr. Steve Walston, DO Maira Heath, BRIM PRESSER-C Tissues: C - Rectum, NOS Procedures: CK5-6 (add) CK8 (add) KI-67 (add) P16 (add) P53 (add) Pankeratin (initial) P40 (add) PHYSICIAN & [place] [id number] SPECIMEN INFORMATION: Tissue Source: C ? Rectal mass Clinical Info: Pelvic pain, abnormal CT scan Specimen Number: [id number] CPT code: 39863, 08619 x6 METHODOLOGY: Deparaffinized sections of prefer/formalin-fixed tissue or PAP/DQ stained slides are incubated with monoclonal/polyclonal antibodies/oligonucleotide probes. Localization is made via biotin free immunoperoxidase method. Appropriate controls are performed and reacted as expected. Results on target cell population are indicated in the following table: RESULTS: ANTIBODY / CLONE RESULT Block C AE1-3 (AE1/AE3/PCK26) positive CK8 (40wkckK62) positive CK5-6 (D5 & 1684) positive P40 (BC28) positive P16 (E6H4) positive, strong, block-like P53 (DO-7) positive, Wild type pattern, weak intensity Ki-67 (30-9) positive, >90% These tests were developed and their performance characteristics determined by [facility]. They may not have been cleared or approved by the U.S. Food and Drug Administration. The FDA has determined that such clearance or approval is not necessary. The above immunohistochemical/dualISH markers are ordered and reviewed by the Pathologist. INTERPRETATION: C. Rectal mass, biopsy: Invasive squamous cell carcinoma. AM:yaw 07/07/2022
--- NOTE | 2022-07-03 | MASS_PTH ---
PATIENT: SUSANNE MEJIA LOC: MS3 U#:[id number] AGE/SX: 62/F ROOM: [facility] [place] RE07/02/[address]: Dr. Vee Chester MD : 1960 BED: 1 DIS: 07/03/2022 SPEC #: [id number] RECD: 07/03/22 10:19 STATUS: LIVIA REAkilah #: [id number] MILAN: 07/03/22 00:[address]: Vee Chester DEPT: SURGICAL PATHOLOGY RECD BY: Alba Peralta ENTERED: 07/03/22 11:21 SP TYPE: Mass OTHR DR: Dr. Jesica Wilson DO Tissues: A - Rectum, NOS B - Rectum, NOS C - Rectum, NOS Procedures: Frozen Section (charge) Surgery Specimen Level IV HEADER OPERATION: EUA, sigmoidoscope, rectal biopsy PRE-OP DIAGNOSIS: Pelvic pain, abnormal CT scan TISSUE SUBMITTED: A ? Rectal mass, frozen section, B - Rectal mass, C - Rectal mass FROZEN SECTION DIAGNOSIS A. Rectal mass, biopsy: Invasive squamous cell carcinoma. AM:yaw 07/03/2022 MICROSCOPIC DIAGNOSIS A. Rectal mass, biopsy: Invasive well to moderately differentiated squamous cell carcinoma. B. Rectal mass, biopsy: Invasive well to moderately differentiated squamous cell carcinoma. C. Rectal mass, biopsy: Invasive well to moderately differentiated squamous cell carcinoma. See comment. AM:yaw 07/04/2022 COMMENT C. Immunohistochemistry ([id number]) supports the above diagnosis. Case has been reviewed in consultation with Dr. Baez who concurs with the above diagnosis. IDC:[id number] MICROSCOPIC DESCRIPTION Slides are reviewed. GROSS DESCRIPTION A - Received fresh for frozen section consultation labeled with the patient's name is a specimen designated rectal mass. The specimen consists of two irregular fragments of pink-horton soft tissue that in aggregate measure 0.5 x 0.5 x 0.2 cm. The specimen is totally submitted for frozen section consultation in one cassette. B - Received in fixative is one container labeled with the patient's name and designated rectal mass. The specimen consists of one irregular fragment of light horton soft tissue that measures 0.5 x 0.5 x 0.1 cm. The specimen is totally submitted in one cassette. C - Received in fixative is one container labeled with the patient's name and designated rectal mass. The specimen consists of multiple irregular fragments of light horton soft tissue that in aggregate measure 0.7 x 0.5 x 0.1 cm. The specimen is totally submitted in one cassette. / AM:yaw 07/03/2022 TC:0 CPT: 91354 x3, [id number]
[2022-07-03 06:20] LABS: Absolute Lymphocyte Count 2.01 X10^3/uL (0.83-4.51); Absolute Neutrophil Count 3.7 X10^3/uL (2.0-7.7); Basophil# 0.04 X10^3/uL; Basophil% 0.6 % (0-1); Eosinophil# 0.05 X10^3/uL; Eosinophils% 0.8 % (0-5); Hemoglobin 11.1 g/dL (12.0-15.0); Lymphocyte # 2.01 X10^3/ul (0.83-4.51); Lymphocyte % 30.9 % (19-41); Mean Corp Hgb Conc 32.6 g/dL (32-36); Mean Corpuscular Hgb 28.6 pg (27.0-32.0); Mean Corpuscular Volume 87.6 fL (81-99); Mean Platelet Vol. 8.5 fl (6.2-12.0); Monocyte# 0.66 X10^3/uL; Monocyte% 10.2 % (0-10); NRBC Flagged by Analyzer 0 % (0-5); Neutrophil # 3.72 X10^3/uL (2.7-7.7); Neutrophil % 57.2 % (47-70); Platelet Count 254 K/mm3 (150-450); RBC Distribution Width CV 13.2 % (11.6-14.6); Red Blood Count 3.88 M/mm3 (4.2-5.4); White Blood Count 6.5 K/mm3 (4.4-11.0)
[2022-07-03] MEDS: Lactated Ringers 1,000 ML 100 ML IV (06:21)
[2022-07-03] MEDS: Bisacodyl 10 MG Suppository RC ×2 (06:21→07:19)
[2022-07-03 06:59] LABS: Anion Gap 7 (5-15); BUN 8 mg/dL (7-18); Calcium,Total 9.1 mg/dL (8.5-10.1); Chloride 107 mmol/L (98-107); EST Glomerular Filtration Rate 77 mL/min (>60); Est Glom Filt Rate - Afr Amer 93 mL/min (>60); Estimated Creatinine Clearance 74.49 ml/min; Glucose 111 mg/dL (74-106); Potassium 3.4 mmol/L (3.5-5.1); Sodium Level 142 mmol/L (136-145)
[2022-07-03 07:01] LABS: International Normalized Ratio 1.1; Partial Thromboplast Time 30.6 Seconds (24.1-36.2); Prothrombin Time (Protime)PT. 13.9 SECONDS (11.7-14.9)
[2022-07-03 07:05] LABS: Bedside Glucose 110 mg/dL (74-106)
[2022-07-03] MEDS: 0.9% Saline Lock 10 ML Syringe IV ×4 (08:10→14:43)
[2022-07-03] MEDS: Morphine 2 MG/ML Syringe IV ×3 (08:10→14:43)
[2022-07-03 08:22] LABS: Hemoglobin A1c 6.6 % (3.8-5.6)
[2022-07-03] MEDS: Metoprolol(XL)Succ 25 MG Tablet PO (08:23)
[2022-07-03] MEDS: Losartan Potassium 100 MG Tablet PO (08:24)
[2022-07-03] MEDS: hydroCHLOROthiazide 25 MG Tablet PO (08:25)
[2022-07-03] MEDS: amLODIPine 5 MG Tablet PO (08:25)
[2022-07-03] MEDS: LORazepam 2 MG/ML Syringe 0.5 MG IV (08:33)
--- NOTE | 2022-07-03 08:39 | PCM.PN.BLA ---
Progress Note Did review patient's MRI report with the patient?calling distal rectal cancer with necrosis and lymphadenopathy. Patient still has a confusing picture as even after talking to Dr. Patrick she said no lesions in the vagina on speculum exam and previous colonoscopy a year ago mucosa appeared normal and pictures. Patient also had rectal varices called on colonoscopy previously and underwent infrared photocoagulation treatments. We will plan for exam under anesthesia, sigmoidoscope, possible biopsy. Patient had no further questions at this time.
--- NOTE | 2022-07-03 10:43 | OP.FLEXSIG_ITS ---
Patient Name: Susannah Damon Procedure Date: 07/03/2022 9:57 AM Date of : 1960 Age: 62 Procedure: Flexible Sigmoidoscopy Indications: Abnormal CT of the GI tract, Abnormal MRI of the GI tract, Rectal mass, Rectal pain Providers: Vee Chester MD Medicines: None Patient Profile: This is a 62 year old female. Last Colonoscopy: 1 year ago. Complications: No immediate complications. Procedure: Pre-Anesthesia Assessment: - Prior to the procedure, a History and Physical was performed, and patient medications and allergies were reviewed. The patient's tolerance of previous anesthesia was also reviewed. The risks and benefits of the procedure and the sedation options and risks were discussed with the patient. All questions were answered, and informed consent was obtained. Prior Anticoagulants: The patient has taken no previous anticoagulant or antiplatelet agents. ASA Grade Assessment: Per anesthesia. After reviewing the risks and benefits, the patient was deemed in satisfactory condition to undergo the procedure. After obtaining informed consent, the endoscope was passed under direct vision. Throughout the procedure, the patient's blood pressure, pulse, and oxygen saturations were monitored continuously. The colonoscope was introduced through the anus and advanced to the sigmoid colon. The flexible sigmoidoscopy was accomplished without difficulty. The patient tolerated the procedure well. The quality of the bowel preparation was good. Scope In: 10:01:24 AM Scope Out: 10:21:16 AM Total Procedure Duration Time 0 hours 19 minutes 52 seconds Findings: The digital rectal exam revealed a 3 cm (diameter) and about 5 cm in length firm and nodular rectal mass palpated 2 to 3 cm from the anal verge. A localized area of moderately friable mucosa with contact bleeding was found in the rectum. Biopsies were taken with a cold forceps for histology. Frozen and permanent biopsies were taken Frozen: squamous cell carcinoma Impression: - Rectal mass 2 to 3 cm from the anal verge. - Friability with contact bleeding in the rectum. Biopsied. Recommendation: - [facility] care. MD Vee Malone MD 07/03/2022 10:43:05 AM This report has been signed electronically. Number of Addenda: 0 Note Initiated On: 07/03/2022 9:57 AM
--- NOTE | 2022-07-03 10:44 | OP.CCLET_ITS ---
07/03/2022 Jesica Wilson [address] [facility] [place] [address] [place] [address] Re : Flexible Sigmoidoscopy procedure for Susannah Damon Dear Dr. Wilson This procedure was performed on June. My impressions and recommendations are as follows: Impressions : - Rectal mass 2 to 3 cm from the anal verge. - Friability with contact bleeding in the rectum. Biopsied. Recommendations : - [facility]. My findings are described in the full procedure note, which is enclosed. If I can be of further assistance, please feel free to contact me at Doctor phone number(s): , Work: . Sincerely, MD Vee Malone MD 07/03/2022 10:43:05 AM This report has been signed electronically.
[2022-07-03] MEDS: Potassium Chloride Oral Tablet 20 MEQ PO (11:32)
--- NOTE | 2022-07-03 11:53 | CT_ITS ---
STUDY: CT CHEST WITH CONTRAST REASON FOR EXAM: Female, 62 years old. New diagnosis of rectal cancer, staging RADIATION DOSAGE (If Supplied By Facility): CTDIvol = ( 15.34 ) mGy, DLP = ( 592.92 ) mGycm TECHNIQUE: Transaxial imaging was performed following intravenous administration of IV 100mL Isovue-300. Multiplanar coronal and sagittal images were reformatted. Individualized dose optimization techniques were used for this CT. COMPARISON: No relevant priors. FINDINGS: CHEST There is a 1.6 cm cystic nodule in the anterior left lobe of the thyroid gland. Minimal increased linear markings in the posterior aspect of the lingular segment of the left upper lobe suggests lobar scarring. No pulmonary nodule is seen. There is no demonstrated pleural abnormality. There are calcifications of the coronary arteries. There are multiple small lymph nodes within the mediastinum, which are normal in size and morphology most compatible with reactive lymph hyperplasia. Normal hilar regions. Normal unenhanced pulmonary arteries. There is atherosclerotic calcification of the aortic arch with tortuosity and elongation of the aortic arch and descending thoracic aorta. There are degenerative changes of the thoracic spine. Small hiatal hernia. Fatty infiltration of the liver. CT/Chest WITH Contrast IMPRESSION: Mild increased markings in the lingular segment of the left upper lobe suggestive of scarring. Small hiatal hernia. Fatty infiltration of the liver. Electronically Signed: Alcides Will MD at 12:56 EDT ,
[2022-07-03 12:00] LABS: Bedside Glucose 95 mg/dL (74-106)
--- NOTE | 2022-07-03 14:47 | CON.PCM.ON_ITS ---
Assessment & Plan Assessment/Plan (1) Squamous cell carcinoma of rectum: Status: Acute Code(s): C20 - Malignant neoplasm of rectum Plan: Imaging confirms mass lesion in the distal sigmoid colon/rectal wall extends into the vagina, T4, with pelvic adenopathy. CT chest reviewed with the patient, no evidence to suggested distant met disease in the chest. Requires PET/CT for proper stating. Discussed diagnosis and multimodality approach to treatment, likely to include concurrent chemoradiation. She will meet with radiation oncology, Dr. Mi tomorrow and will be scheduled for visit with medical oncology after PET/CT. (2) Left thyroid nodule: Status: Acute Code(s): E04.1 - Nontoxic single thyroid nodule Plan: 1.6 cm involving anterior left lobe thyroid evident on CT chest with contrast obtained 07/03/2022. Plan PET/CT in the outpatient setting. HPI Consult Data Date of Service:: 07/03/22 PCP / Referring Provider: Dr. Jesica Wilson DO Attending: Dr. Vee Chester MD Chief Complaint Chief Complaint: squamous cell carcinoma of the rectum History of Present Illness History of Present Illness: Ms. Susannah Damon is a pleasant 62 year old F who developed rectal pain and bloody discharge January 2022. Underwent a screening colonoscopy May 2021, 3 polyps removed (2 cecum, 1 transverse colon), path benign. Thus, pain felt to be relat ed to internal hemorrhoids. Received 2 infrared laser treatments to treat presumed hemorrhoids under the care of hemorrhoid specialist, Dr. Arturo Benz ([place]). She also underwent pelvic transvaginal ultrasound May 30, 2022 to address complaints of bloating. Ultrasound showed enlarged leiomyomatous uterus. Subsequent to hemorrhoid laser treatments, she presented to [facility] ED 06/19/2022 with complaints of rectal pain and bleeding. She was found to have an elevated creatinine and BUN and was supported with IV hydration and encouraged to follow-up with Dr. Benz regarding postprocedure pain. Presented to [facility] ED again on 06/23/2022 with complaints of vaginal bleeding. Transvaginal ultrasound was repeated, showed enlarged fibroid uterus. Met with Dr. Yoo 06/27/22 and underwent endometrial biopsy, path returned benign. Was scheduled for MRI pelvis in the outpatient setting. In the interim, developed low abd/pelvic pain and presented to [facility] ED on 07/02/22. CT A/P with contrast demonstrated normal submucosal thickening involving distal sigmoid colon and rectum with associated perirectal inflammation suggestive of proctitis, 3 x 2.5 cm cystic structure left of the rectum, uterine fibroids, and fatty liver without discrete liver lesions. She was subsequently admitted for management of possible rectal abscess. Underwent MRI pelvis with and without contrast 07/02/2022 which demonstrated significant distal sigmoid colon/rectal wall thickening with mass lesion extending into the vagina, measured 6.8 x 5.7 cm with central necrosis and multiple enlarged pelvic lymph nodes, no rim-enhancing fluid collection to suggest abscess. 07/03/2022 underwent flex sigmoidoscopy under the care of Dr. Chester. A 3 x 5 cm, firm nodular rectal mass was palpated 2 to 3 cm from the anal verge and area of moderately friable mucosa was detected in the rectum. Biopsies were obtained. Frozen biopsy confirmed squamous cell carcinoma. CT chest with contrast showed 1.6 cm cystic nodule anterior left lobe thyroid gland, mild increased markings in the lingular segment of the left upper lobe suggestive of scarring, small hiatal hernia, and fatty infiltration of the liver. Interval History Interval History: Upon entering the room patient is dressed and preparing her personal items anticipating discharge. She confirms accuracy of HPI. States vaginal and rectal bleeding had completely stopped on 06/27/22, until rectal bleeding reoccurred today post sigmoidoscopy. Reports she recently lost 50 pounds however this was intentional utilizing keto diet. Describes good support system at home by way of significant other friends and family. No family history of malignancy. + history of inhaled tobacco use, quit > 16 years. Overdue for screening mammogram. 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 release 24 hr 25 mg PO DAILY bp 05/10/18 [History Last Taken 07/02/22] biotin 500 mcg capsule 1 mg PO DAILY supplement 05/28/21 [History Last Taken Unknown] cholecalciferol (vitamin D3) 125 mcg (5,000 unit) tablet (Vitamin D3) 250 mcg PO DAILY supplement 05/28/21 [History Last Taken 07/02/22] dapagliflozin 5 mg tablet (Farxiga) 5 mg PO QHS DM 05/28/21 [History Last Taken 07/01/22] temxpwyxhmk-ogg-qkkwltrdg-vitC capsule (Glucosamine Complex-MSM capsule) 1 cap PO DAILY supplement 05/28/21 [History Last Taken 07/02/22] guselkumab 100 mg/mL subcutaneous auto-injector (Tremfya) 100 mg subcut .Q56 DAYS Check with primary doctor 05/28/21 [History Last Taken 3 Weeks Ago ~06/11/22] losartan 100 mg-hydrochlorothiazide 25 mg tablet 1 tab PO DAILY bp 05/28/21 [History Last Taken 07/02/22] omega-3 fatty acids 1,000 mg PO DAILY supplement\ 05/28/21 [History Last Taken 07/02/22] rosuvastatin 20 mg tablet 20 mg PO QHS cholesterol 05/28/21 [History Last Taken 07/01/22] metformin 500 mg tablet 1,000 mg PO BID DM 06/27/22 [History Last Taken 07/02/22] cyclobenzaprine 10 mg tablet 10 mg PO BID PRN PRN Pain 07/02/22 [History Last Taken 07/02/22] potassium chloride 20 mEq tablet,extended release 20 meq PO DAILY supplement 07/02/22 [History Last Taken 07/02/22] oxycodone-acetaminophen 5 mg-325 mg tablet (Percocet) 1 tab PO Q6H PRN pain 6 days #20 tabs 07/03/22 [Rx Last Taken 06/28/22] Allergy/AdvReac Type Severity Reaction Status Date / Time acetaminophen [From Vicodin] Allergy Itching Verified 07/02/22 09:08 hydrocodone [From Vicodin] Allergy Itching Verified 07/02/22 09:08 Surgical History Hx of colonoscopy Hx of surgical procedure Social History Smoking Status: Former smoker alcohol intake: current ROS ROS Narrative Negative except as documented in the interval HPI Physical Exam Narrative ECOG 0 Const alert, oriented x3 and no apparent distress HEENT normocephalic and head/scalp atraumatic Eyes conjunctivae normal and no scleral icterus Neck no lymphadenopathy and supple Neck Narrative: special attention paid to left side thyroid, cannot palpate abnormality Lymph Lymphatic: no lymphadenopathy noted Resp normal respiratory effort and clear to auscultation bilaterally Cardio regular rate, regular rhythm, S1 normal heart sound and S2 normal heart sound GI normal to inspection, nondistended, normoactive bowel sounds and soft to palpation; Negative for hepatosplenomegaly Palpation: tender LLQ and RLQ; Negative for guarding Extremity no clubbing, cyanosis or edema Neuro CN's II-XII intact bilaterally Psych mental status grossly normal Attitude: calm and engaged Vital Signs Temperature 97.8 F 07/03/22 14:30 Temperature Source Oral 07/03/22 14:30 Pulse Rate 108 H 07/03/22 14:30 Pulse Strength Normal (2+) 07/03/22 08:41 Respiratory Rate 14 07/03/22 14:30 Respiratory Effort Non-Labored 07/03/22 11:40 Respiratory Depth Normal 07/03/22 11:40 Respiratory Pattern Normal 07/03/22 11:40 Blood Pressure 173/94 H 07/03/22 14:30 Blood Pressure Mean 120 07/03/22 14:30 Blood Pressure Source Monitor 07/03/22 14:30 Blood Pressure Position Sitting 07/03/22 14:30 Blood Pressure Location Left Arm 07/03/22 14:30 Baseline BP 152/87 07/03/22 10:45 Pulse Ox 97 07/03/22 14:30 Oxygen Delivery Method Room Air 07/03/22 14:30 Laboratory Results - last 24 hr 07/02/22 20:55: POC Glucose 161 H 07/03/22 05:55: WBC 6.5, RBC 3.88 L, Hgb 11.1 L, Hct 34.0 L, MCV 87.6, MCH 28.6, MCHC 32.6, RDW Std Deviation 42.0, RDW Coeff of Iva 13.2, Plt Count 254, MPV 8.5, Immature Gran % (Auto) 0.300, Neut % (Auto) 57.2, Lymph % (Auto) 30.9, Ida % (Auto) 10.2 H, Eos % (Auto) 0.8, Baso % (Auto) 0.6, Absolute Neuts (auto) 3.7, Absolute Lymphs (auto) 2.01, Nucleated RBC % 0 07/03/22 05:55: Sodium 142, Potassium 3.4 L, Chloride 107, Carbon Dioxide 28.0, Anion Gap 7, BUN 8, Creatinine 0.80, Estim Creat Clear Calc 74.49, Est GFR (MDRD) Af Amer 93, Est GFR (MDRD) Non-Af 77, BUN/Creatinine Ratio 10.0, Glucose 111 H, Calcium 9.1 07/03/22 05:55: PT 13.9, INR 1.1, APTT 30.6 07/03/22 05:55: Hemoglobin A1c 6.6 H 07/03/22 06:27: POC Glucose 110 H 07/03/22 11:37: POC Glucose 95 Diagnostic Data Abdomen/Pelvis CT 07/02/22 09:26 IMPRESSION: Abnormal submucosal thickening of the distal sigmoid colon and rectum with associated perirectal inflammation consistent with a proctitis. There is an associated 3.01 x 2.52 cm cystic structure left of the rectum. This could represent an early inflammatory process though there is no air within this structure could also represent the left ovary (if not previously removed) Scattered colonic diverticula, no CT evidence of acute diverticulitis. Uterus is present and enlarged, and contains multiple calcifications suggesting underlying fibroids. The endometrium cannot be accurately evaluated with CT. Normal appendix visualized Fatty liver, no discrete lesion Electronically Signed: Prince Robertson MD at 11:40 EDT , Pelvis MRI 07/02/22 18:40 IMPRESSION: Findings most likely representing large rectal cancer extending into the vagina with multiple metastatic pelvic lymph nodes. Electronically Signed: Sadi Christensen DO at 21:49 EDT , ADDENDUM: 07/02/22 2241 IMPRESSION: Findings most likely representing large rectal cancer extending into the vagina with multiple metastatic pelvic lymph nodes. N.B. : The above Results were Read Back by Sadi Christensen DO to Vee Chester MD, and understanding confirmed on 07/02/2022 22:34:27 (ET). Electronically Signed: Sadi Christensen DO at 21:49 EDT , Chest CT 07/03/22 11:53 IMPRESSION: Mild increased markings in the lingular segment of the left upper lobe suggestive of scarring. Small hiatal hernia. Fatty infiltration of the liver. Electronically Signed: Alcides Will MD at 12:56 EDT ,
--- NOTE | 2022-07-03 14:50 | PCM.PN.SRG ---
Subjective Subjective Did review present pathology with patient. Positive for squamous cell carcinoma of the rectum. Objective Data Objective Data Vital Signs: Vital Signs Temp Pulse Resp BP Pulse Ox O2 Del Method 97.8 F 108 H 14 173/94 H 97 Room Air 07/03/22 14:30 07/03/22 14:30 07/03/22 14:30 07/03/22 14:30 07/03/22 14:30 07/03/22 14:30 Oxygen Delivery Method Room Air Weight: 197 lb Body Mass Index (BMI) 29.9 Intake & Output: Intake and Output for Last 24 Hours 07/01/22 07/02/22 07/03/22 23:59 23:59 23:59 Intake Total 1327.5 / 1327.5 1036.67 / 1036.67 Balance 1327.5 / 1327.5 1036.67 / 1036.67 Lab / Micro Data Result Diagrams: 07/03/22 05:55 07/03/22 05:55 Labs: Laboratory Results - last 24 hr 07/02/22 20:55: POC Glucose 161 H 07/03/22 05:55: WBC 6.5, RBC 3.88 L, Hgb 11.1 L, Hct 34.0 L, MCV 87.6, MCH 28.6, MCHC 32.6, RDW Std Deviation 42.0, RDW Coeff of Iva 13.2, Plt Count 254, MPV 8.5, Immature Gran % (Auto) 0.300, Neut % (Auto) 57.2, Lymph % (Auto) 30.9, [place] % (Auto) 10.2 H, Eos % (Auto) 0.8, Baso % (Auto) 0.6, Absolute Neuts (auto) 3.7, Absolute Lymphs (auto) 2.01, Nucleated RBC % 0 07/03/22 05:55: Sodium 142, Potassium 3.4 L, Chloride 107, Carbon Dioxide 28.0, Anion Gap 7, BUN 8, Creatinine 0.80, Estim Creat Clear Calc 74.49, Est GFR (MDRD) Af Amer 93, Est GFR (MDRD) Non-Af 77, BUN/Creatinine Ratio 10.0, Glucose 111 H, Calcium 9.1 07/03/22 05:55: PT 13.9, INR 1.1, APTT 30.6 07/03/22 05:55: Hemoglobin A1c 6.6 H 07/03/22 06:27: POC Glucose 110 H 07/03/22 11:37: POC Glucose 95 Radiography Diagnostic Testing: Radiology Impression Pelvis MRI 07/02/22 18:40 IMPRESSION: Findings most likely representing large rectal cancer extending into the vagina with multiple metastatic pelvic lymph nodes. Electronically Signed: Sadi Christensen DO at 21:49 EDT , ADDENDUM: 07/02/22 2241 IMPRESSION: Findings most likely representing large rectal cancer extending into the vagina with multiple metastatic pelvic lymph nodes. N.B. : The above Results were Read Back by Sadi Christensen DO to Vee Chester MD, and understanding confirmed on 07/02/2022 22:34:27 (ET). Electronically Signed: Sadi Christensen DO at 21:49 EDT , Chest CT 07/03/22 11:53 IMPRESSION: Mild increased markings in the lingular segment of the left upper lobe suggestive of scarring. Small hiatal hernia. Fatty infiltration of the liver. Electronically Signed: Alcides Will MD at 12:56 EDT , Assessment & Plan Assessment/Plan (1) Squamous cell carcinoma of rectum: PLAN: Plan Discussed the frozen pathology results with the patient. Also consulted oncology in order to help patient get treatment started quicker. CT of the chest was completed to complete the staging work-up which did not show any metastatic disease, previous CT abdomen pelvis with p.o. and IV contrast was in the ER. CEA was ordered and is pending. Hoping patient to be able to get a PET scan Thursday. Patient will meet with radiation oncology tomorrow at 1030 as an outpatient. Discussed port placement with the patient we will plan to place it next week. I have discussed above with the patient- Port-a-Cath placement. Patient has been counseled as to the risks/benefits of the procedure. I have explained the risks of the surgery, including but not limited to: infection, bleeding, injury to any blood vessels/nerves, injury to lungs (such as pneumothorax or hemothorax and need for chest tube), not having any access, nonfunctioning of port due to thrombosis, infection of port, etc. the patient understands and agrees to proceed. I have answered all the patient's questions to the patient?s satisfaction and the patient has no further questions. This was all discussed with patient. No further questions this time. Vee Chester M.D. Pager: [phone] [facility] [address] [place] [address], [address] [place] [address] Office: [phone]
--- NOTE | 2022-07-03 14:55 | EX.PCM.DISCH ---
Discharge Instructions Diet Discharge Diet: No restrictions Activity Discharge Activity: May Shower and May Take a Tub Bath (or do sitz bath) Dressing / Incision Call your doctor if your incision/area has: Sudden Increased Bleeding Follow Up Care Please Follow Up With: Vee Chester MD When: my office will call to schedule port placement Test Results: Test results from this visit will be discussed in further detail at your follow-up appointment, if applicable. Discharge Plan Admission Admit Date/Time: 07/02/22 15:46 Attending Provider: Vee Chester Primary Care Provider: Jesica Wilson Consulting Providers: Arturo Lai ; Flavio El ; Hunter Godinez ; Juan Turner ; Renzo Krishnan ; John Gates ; Antwan Mi ; Maira Heath ASSISTANT TEACHER Instructions Additional Instructions / Restrictions: Take stool softeners?Colace 100 mg p.o. daily or even twice daily if needed especially with meds to prevent constipation. Discharge Orders/Prescriptions Prescriptions: Continued metoprolol succinate 25 mg capsule,rishabh,ER 24hr 25 mg PO DAILY amlodipine 5 mg tablet 5 mg PO DAILY losartan-hydrochlorothiazide 100-25 mg tablet 1 tab PO DAILY biotin 500 mcg Capsule 1 mg PO DAILY omega-3 fatty acids Capsule 1,000 mg PO DAILY rosuvastatin 20 mg tablet 20 mg PO QHS Glucosamine Complex-MSM Capsule 1 cap PO DAILY cholecalciferol (vitamin D3) [Vitamin D3] 125 mcg (5,000 unit) Tablet 250 mcg PO DAILY Farxiga 5 mg tablet 5 mg PO QHS Tremfya 100 mg/mL auto-injector 100 mg SUBCUT .Q56 DAYS cyclobenzaprine 10 mg tablet 10 mg PO BID PRN PRN (Reason: Pain) Label Comments: take 1 tablet by mouth twice a day if needed for pain potassium chloride 20 mEq tablet extended release 20 meq PO DAILY oxycodone-acetaminophen [Percocet] 5-325 mg tablet 1 tab PO Q6H PRN (Reason: pain) 6 Days Qty: 20 0RF Label Comments: is out of this Held metformin 500 mg tablet 1,000 mg PO BID Hold Instructions: Resume on 07/05/22. for 48 hrs from IV contrast Referrals / Follow Up: Jesica Wilson DO [Primary Care Provider] - Hunter Godinez MD [Med Staff - Active Staff] - 07/08/22 10:30 am Antwan Mi DO [Med Staff - Active Staff] - 07/04/22 10:30 am Vee Chester MD [Med Staff - Active Staff] - Disposition Disposition (needs filled in before D/C Order can be placed): Home, Self Care
[2022-07-04 15:50] LABS: Carcinoembryonic Antigen 11.4 ng/mL (0.0-4.7)
== END 2022-07-03 15:48 | disposition home or self-care (01) ==
LOC: ED 12:55 → MS3 13:04
PROVIDERS: Anesthesiology; Physician Assistant; Admitting Provider Surgery; Emergency Provider Emergency Medicine; PCP Internal Medicine; Visit Provider Surgery
PROC: (CPT 45331; principal; 2022-07-03 09:30)
DX: C20 Malignant neoplasm of rectum (principal); E11.9 Type 2 diabetes mellitus without complications; K62.5 Hemorrhage of anus and rectum; D25.9 Leiomyoma of uterus, unspecified; K76.0 Fatty (change of) liver, not elsewhere classified; Z87.891 Personal history of nicotine dependence; Z79.84 Long term (current) use of oral hypoglycemic drugs; K64.8 Other hemorrhoids; E78.00 Pure hypercholesterolemia, unspecified; I10 Essential (primary) hypertension; Z79.899 Other long term (current) drug therapy
CPT/HCPCS: 45331; 99284; 36415; 71260; 72197; 74177; 80048; 80053; 81001; 82378; 82962; 83036; 83605; 85025; 85610; 85730; 88305; 88331; 88341; 88342; 93005; 96361; 96365; 96366; 96375; 96376; 99221; A9575; J7030; J7120; Q9967; A4216; G0378; J2405

== ENCOUNTER 2022-07-11 10:03 | Day surgery (SDC) | payer BC, SELFPAY ==
[2022-07-11] MEDS: Lactated Ringers 1,000 ML 15 ML IV (10:47)
[2022-07-11 10:49] VITALS: BP 115/77; PULSE 67; RESP 18; TEMP 36.2; O2SAT 97; BMI 29.5
--- NOTE | 2022-07-11 11:12 | PCM.HP.STD ---
HPI - General General Date of Admission: 07/11/22 HPI Narrative SUSANNE MEJIA, is a 62 F who presents for port placement due to rectal squamous cell carcinoma. The patient is planned to start treatment on Thursday. PET scan showed no evidence of metastases. [facility] Medical History (Updated 07/11/22 @ 11:[address] Vee Chester MD) Alcohol use Anemia Anxiety Cancer Cardiology follow-up encounter Chronic neck and back pain CPAP (continuous positive airway pressure) dependence Depression Diabetes Diabetes Dietary restriction Fatigue Fatty liver Former smoker High cholesterol History of steroid therapy History of stress test HPV test positive Hypertension Left thyroid nodule Low grade squamous intraepithelial lesion (LGSIL) Migraine headache Post-menopausal Regional lymph node metastasis present Restless legs Shortness of breath on exertion Sleep apnea Syncope Thyroid disease Wears glasses Wears partial dentures Home Medications amlodipine 5 mg tablet 5 mg PO DAILY heart 05/10/18 [History Last Taken 07/11/22 07:00] metoprolol succinate 25 mg capsule sprinkle, ext. release 24 hr 25 mg PO DAILY bp 05/10/18 [History Last Taken 07/11/22 07:00] biotin 500 mcg capsule 1 mg PO DAILY supplement 05/28/21 [History Last Taken Unknown] cholecalciferol (vitamin D3) 125 mcg (5,000 unit) tablet (Vitamin D3) 250 mcg PO DAILY supplement 05/28/21 [History Last Taken 07/02/22] dapagliflozin 5 mg tablet (Farxiga) 5 mg PO QHS DM 05/28/21 [History Last Taken 07/01/22] tjjqdazidae-cqg-hjjpefytv-vitC capsule (Glucosamine Complex-MSM capsule) 1 cap PO DAILY supplement 05/28/21 [History Last Taken 07/02/22] guselkumab 100 mg/mL subcutaneous auto-injector (Tremfya) 100 mg subcut .Q56 DAYS Check with primary doctor 05/28/21 [History Last Taken 3 Weeks Ago ~06/11/22] losartan 100 mg-hydrochlorothiazide 25 mg tablet 1 tab PO DAILY bp 05/28/21 [History Last Taken 07/02/22] omega-3 fatty acids 1,000 mg PO DAILY supplement\ 05/28/21 [History Last Taken 07/02/22] rosuvastatin 20 mg tablet 20 mg PO QHS cholesterol 05/28/21 [History Last Taken 07/01/22] metformin 500 mg tablet 1,000 mg PO BID DM 06/27/22 [History Last Taken 07/02/22] cyclobenzaprine 10 mg tablet 10 mg PO BID PRN PRN Pain 07/02/22 [History Last Taken 07/02/22] docusate sodium 100 mg capsule (Colace) 100 mg PO DAILY 07/08/22 [History Last Taken Unknown] oxycodone-acetaminophen 5 mg-325 mg tablet 1 tab PO Q4H PRN pain 20 days #80 tabs 07/08/22 [Rx Last Taken 07/11/22 08:30] dexamethasone 2 mg tablet 2 mg PO DAILY 07/10/22 [History Last Taken 07/11/22 07:00] methadone 5 mg tablet 5 mg PO BID 07/10/22 [History Last Taken 07/11/22 07:00] Allergy/AdvReac Type Severity Reaction Status Date / Time acetaminophen [From Vicodin] Allergy Itching Verified 07/11/22 10:45 hydrocodone [From Vicodin] Allergy Itching Verified 07/11/22 10:45 Family History (Updated 07/08/22 @ 10:23 by Odette Lock) Father Myocardial infarction Mother Osteoporosis Brother Heart disease Sister Arthritis Surgical History (Updated 07/10/22 @ 08:54 by Carri Landeros) History of arthroscopy of right knee Hx of colonoscopy Hx of eye surgery Hx of hemorrhoidectomy Hx of surgical procedure Hx of tonsillectomy Social History (Updated 07/08/22 @ 10:19 by Odette Lock) household members: significant other current occupational status: retired Smoking Status: Former smoker quit date: 03/30/05 alcohol intake: current alcohol intake frequency: other details: used to drink alcohol daily but hasn't drank anything for about a month substance use type: other details: edibles for sleeping diet: diabetic Vital Signs Vital Signs Vital Signs: 07/11/22 10:49 07/11/22 10:49 Temperature 97.2 F L Temperature Source Temporal Pulse Rate 67 Respiratory Rate 18 Respiratory Pattern Normal Blood Pressure 115/77 Blood Pressure Mean 89 Blood Pressure Source Monitor Blood Pressure Position Supine Blood Pressure Location Right Arm Pulse Ox 97 Oxygen Delivery Method Room Air Weight Weight: 193 lb 12.8 oz Body Mass Index (BMI) 29.5 Physical Exam Narrative Normal palpation of bilateral upper chest Const alert, oriented x3 and no apparent distress HEENT normocephalic and head/scalp atraumatic Resp normal respiratory effort Cardio regular rate GI soft to palpation, non-tender and non-distended Palpation: Negative for guarding Extremity no clubbing, cyanosis or edema Neuro CN's II-XII intact bilaterally Psych mental status grossly normal Assessment & Plan Assessment/Plan (1) Encounter for insertion of venous access port: (2) Squamous cell carcinoma of rectum: (3) Regional lymph node metastasis present: PLAN: Plan I have discussed above with the patient- Port-a-Cath placement. Patient has been counseled as to the risks/benefits of the procedure. I have explained the risks of the surgery, including but not limited to: infection, bleeding, injury to any blood vessels/nerves, injury to lungs (such as pneumothorax or hemothorax and need for chest tube), not having any access, nonfunctioning of port due to thrombosis, infection of port, etc. the patient understands and agrees to proceed. I have answered all the patient's questions to the patient?s satisfaction and the patient has no further questions. Vee Chester M.D. Pager: [phone] [facility] [address] [place] [address], [facility], [address] [place] [address] Office: [phone]
[2022-07-11 11:16] LABS: Bedside Glucose 146 mg/dL (74-106)
[2022-07-11] MEDS: Cefazolin 2 GM in 0.9% Normal Saline 100 ML IV (11:44)
[2022-07-11] MEDS: Lidocaine 1% /Epi 1:100 (20ml) 20 ML Vial (11:53)
[2022-07-11] MEDS: Bupivacaine 0.25% 30 ML Vial (11:53)
--- NOTE | 2022-07-11 12:16 | PCM.OPRPT ---
Report of Operation Date of Procedure: 07/11/22 Pre-Operative Diagnosis: z45.2, rectal cancer Post-Operative Diagnosis: Same Surgery/Procedure Performed:: 1. Placement of right IJ Port-A-Cath 2. Use of ultrasound, 3. Use of fluoroscopy Surgeon: Vee Chester Type of Anesthesia: MAC/Supplemental Anesthesiologist: Compa Trotter Special Medications: Ancef 2 g IV x1 Estimated Blood Loss (mL): < 10 cc Description of Procedure: After informed consent was given, the patient was brought to the operating room and placed in the supine position. Appropriate time out protocol was followed. Patient was then given IV conscious sedation for anesthesia. The patient's right upper chest and neck were then prepped with a surgical skin preparation and sterile surgical drapes were placed. After proper landmarks were ascertained, the skin at the upper right chest area was then infiltrated with 1:1 mixture of 1% lidocaine with epinephrine and 0.25% marcaine. A needle trocar was then inserted into the right internal jugular vein with ultrasound guidance-multiple vessels were viewed with u/s and the right IJ was chosen-- and there was good aspiration of venous blood. A wire was then threaded into the needle trocar and this was visualized under fluoroscopy to ensure that the wire was in the superior vena cava. Once this was done, then the needle trocar was removed. A small skin thomas was made with an 11 blade knife at the wire entrance site. The dilator with the introducer sheath attached was then placed over the wire into the right internal jugular vein via the Seldinger technique and this was visualized under fluoroscopy. The dilator and sheath were in proper position as visualized by fluoroscopy. A subcutaneous pocket was then created caudad to the catheter insertion site. A transverse skin incision was made after the skin and subcutaneous tissues were infiltrated with local anesthetic. Blunt dissection was then used to create a space large enough for placement of the subcutaneous port. The catheter was then tunneled into the subcutaneous pocket. The wire and dilator were then removed. The catheter was then threaded into the introducer sheath and was positioned with its tip at the junction of the superior vena cava and the right atrium as visualized under fluoroscopy. The excess catheter was transected. The catheter was then attached to the subcutaneous port using manufacturers guidelines. The catheter was flushed with a heparin saline mixture prior to placement. Hemostasis was carefully controlled with electrocautery. The port was sutured to the subcutaneous fascia using 2-0 Vicryl suture at two sites. The port was then placed in the subcutaneous pocket. The incision were reapproximated with interrupted subdermal 3-0 vicryl sutures. The skin was reapproximated with 3-0 nylon suture in a interrupted fashion. Steristrips were used for reinforcement of the skin closure at IJ insertion site and a sterile opsite dressings were applied. The patient tolerated the procedure well. Grafts/Implants Used: [employer] PowerPort isp M.R.I. 8Fr Lot lot [id number] Complications none
--- NOTE | 2022-07-11 12:18 | DCINST_ITS ---
Discharge Instructions Procedure Port-A-Cath Diet Discharge Diet: Light diet - advance as tolerated Activity May shower in (days): 5 (Keep port site clean and dry x5 days. Neck incision okay to get wet after 1 day. Okay to lower shower and upper sponge bath. OR okay to taper off port site with a Ziploc bag to shower) Lifting Restrictions: No lifting > 15 pounds for 3 days with the arm on the side of the port Dressing / Incision Call your doctor if your incision/area has: Continuous Slow Oozing, Sudden Increased Bleeding, Increased Pain/ Swelling, Increased Redness, Foul Smelling Discharge and Swelling at the incision site Call your doctor if you observe: Fever of 101 or Higher Change Dressing in: 2 days Follow Up Care Please Follow Up With: Vee Chester MD When: In 10 days for permanent suture removal?call office for appointment Test Results: Test results from this visit will be discussed in further detail at your follow- up appointment, if applicable. Discharge Plan Admission Attending Provider: Vee Chester Primary Care Provider: Jesica Wilson Discharge Orders/Prescriptions Prescriptions: Continued metoprolol succinate 25 mg capsule,sprinkle,ER 24hr 25 mg PO DAILY amlodipine 5 mg tablet 5 mg PO DAILY metformin 500 mg tablet 1,000 mg PO BID Hold Instructions: Resume on 07/05/22. for 48 hrs from IV contrast docusate sodium [Colace] 100 mg capsule 100 mg PO DAILY losartan-hydrochlorothiazide 100-25 mg tablet 1 tab PO DAILY biotin 500 mcg Capsule 1 mg PO DAILY omega-3 fatty acids Capsule 1,000 mg PO DAILY rosuvastatin 20 mg tablet 20 mg PO QHS Glucosamine Complex-MSM Capsule 1 cap PO DAILY cholecalciferol (vitamin D3) [Vitamin D3] 125 mcg (5,000 unit) Tablet 250 mcg PO DAILY Farxiga 5 mg tablet 5 mg PO QHS Tremfya 100 mg/mL auto-injector 100 mg SUBCUT .Q56 DAYS cyclobenzaprine 10 mg tablet 10 mg PO BID PRN PRN (Reason: Pain) Label Comments: take 1 tablet by mouth twice a day if needed for pain dexamethasone 2 mg Tablet 2 mg PO DAILY methadone 5 mg Tablet 5 mg PO BID oxycodone-acetaminophen 5-325 mg tablet 1 tab PO Q4H PRN (Reason: pain) 20 Days Qty: 80 0RF Rx Instructions: take 1-2 tabs q4-6 hrs prn pain Referrals / Follow Up: Jesica Wilson DO [Primary Care Provider] - Disposition Disposition (needs filled in before D/C Order can be placed): Home, Self Care
--- NOTE | 2022-07-11 12:22 | RAD_ITS ---
STUDY: X-RAY CHEST REASON FOR EXAM: Female, 62 years old. Post Port-A-Cath insertion TECHNIQUE: Single AP portable view of the chest. COMPARISON: 09/18/2014 FINDINGS: EKG leads overlie the chest. Lumen port is been placed, tip is in the distal SVC, no pneumothorax or complication. The lungs are clear and expanded. There is no demonstrated pleural abnormality. Normal size heart. Normal mediastinum and olivia. Normal visualized pulmonary arteries. Normal visualized aortic arch and descending thoracic aorta. Normal visualized thoracic spine. Normal visualized ribs, clavicles, and shoulders. There is no demonstrated abnormality of the visualized soft tissue structures of the upper abdomen. RAD/Chest 1 View (Portable) IMPRESSION: No acute pulmonary process Electronically Signed: Prince Robertson MD at 12:39 EDT ,
[2022-07-11 12:23] VITALS: BP 104/67; BP 115/77; PULSE 66; RESP 16; TEMP 36.3; O2SAT 94
[2022-07-11 12:25] VITALS: BP 105/70; BP 115/77; PULSE 61; RESP 16; O2SAT 95
[2022-07-11 12:30] VITALS: BP 108/66; BP 115/77; PULSE 61; RESP 16; O2SAT 95
[2022-07-11 12:41] VITALS: BP 114/70; BP 115/77; PULSE 63; RESP 16; TEMP 36.3; O2SAT 94
[2022-07-11 13:10] VITALS: BP 115/77
== END 2022-07-11 13:21 | disposition home or self-care (01) ==
LOC: SDC 10:06 → AC 10:06
PROVIDERS: PCP Internal Medicine; Referring Provider Surgery; Visit Provider Surgery
PROC: (CPT 36561; principal; 2022-07-11 11:30)
DX: Z45.2 Encounter for adjustment and management of vascular access device (principal); C77.9 Secondary and unspecified malignant neoplasm of lymph node, unspecified; C20 Malignant neoplasm of rectum; E11.9 Type 2 diabetes mellitus without complications; E78.00 Pure hypercholesterolemia, unspecified; I10 Essential (primary) hypertension; K76.0 Fatty (change of) liver, not elsewhere classified; G89.29 Other chronic pain; G47.30 Sleep apnea, unspecified; Z87.891 Personal history of nicotine dependence; Z79.899 Other long term (current) drug therapy; Z79.84 Long term (current) use of oral hypoglycemic drugs
CPT/HCPCS: 36561; 00532; 71045; 77001; 82962; J7120; C1788; J2405

== ENCOUNTER → 2022-07-18 | Outpatient (CLI) | payer BC, SELFPAY | END | disposition home or self-care (01) | PROVIDERS: PCP Internal Medicine | DX: Z00.00 Encounter for general adult medical examination without abnormal findings (principal) ==

== ENCOUNTER → 2022-07-19 | Outpatient (CLI) | payer BC, SELFPAY | END | disposition home or self-care (01) | PROVIDERS: PCP Internal Medicine; Visit Provider Nurse Practitioner Family | DX: R33.9 Retention of urine, unspecified (principal) | CPT/HCPCS: 87086; 87088 ==

== ENCOUNTER 2022-07-21 14:17 | Emergency (ER) | payer BC, SELFPAY ==
[2022-07-21 14:19] VITALS: BP 121/74; PULSE 81; RESP 16; TEMP 36.1; O2SAT 100
--- NOTE | 2022-07-21 16:03 | EDS_ITS ---
HPI HPI - Female History of Present Illness Chief Complaint: Complaint Informant: patient and spouse/S.O. Narrative Narrative: Presents with trouble urinating. She states she last urinated about 2 AM this morning. She feels full but could not go. However, after coming back to the room she felt the urge to go. She went into the bathroom. She was able to finally release the urine. She gave a sample. There is no burning or discomfort. She feels as though she is emptying now. She feels back to baseline. Patient has had this trouble urinating for a long time. It is commonly hard for her to get started. It is just never gone to this degree. Of note, the patient just finished radiation to the rectal pelvic area and chemotherapy for a localized rectal squamous cancer. They think that this should hopefully treated and she will hopefully not need surgery. She states everything in that area just feels inflamed which she was told is normal. She did have a lot of diarrhea over the weekend and really was not drinking much although she had no vomiting. But that is getting better. She still having some soft stools but markedly improved. She was not bleeding this time. She has not had fevers or chills. No dysuria or symptoms of a UTI. It is just that she had urinary retention. This was similar but worse than the past. She also has some pain now down near the right iliac crest area. But its been sore for several weeks. It is a little sore with motion. No numbness tingling weakness. PFSH [facility] Medical History Alcohol use Anemia Anemia Anxiety Cancer Cardiology follow-up encounter Chronic neck and back pain CINV (chemotherapy-induced nausea and vomiting) CPAP (continuous positive airway pressure) dependence Depression Diabetes Diabetes Diarrhea Dietary restriction Elevated serum creatinine Encounter for chemotherapy management Encounter for education Fatigue Fatty liver Former smoker High cholesterol History of steroid therapy History of stress test HPV test positive Hypertension Hypokalemia Left thyroid nodule Low grade squamous intraepithelial lesion (LGSIL) Migraine headache Mucositis (ulcerative) due to antineoplastic therapy Post-menopausal Regional lymph node metastasis present Restless legs Shortness of breath on exertion Sleep apnea Syncope Thyroid disease Urinary retention Wears glasses Wears partial dentures Home Medications amlodipine 5 mg tablet 5 mg PO DAILY heart 05/10/18 [History Last Taken 07/11/22 07:00] metoprolol succinate 25 mg capsule sprinkle, ext. release 24 hr 25 mg PO DAILY bp 05/10/18 [History Last Taken 07/11/22 07:00] biotin 500 mcg capsule 1 mg PO DAILY supplement 05/28/21 [History Last Taken Unknown] cholecalciferol (vitamin D3) 125 mcg (5,000 unit) tablet (Vitamin D3) 250 mcg PO DAILY supplement 05/28/21 [History Last Taken 07/02/22] dapagliflozin 5 mg tablet (Farxiga) 5 mg PO QHS DM 05/28/21 [History Last Taken 07/01/22] jvqblweksbc-qqy-qszjzytxi-vitC capsule (Glucosamine Complex-MSM capsule) 1 cap PO DAILY supplement 05/28/21 [History Last Taken 07/02/22] guselkumab 100 mg/mL subcutaneous auto-injector (Tremfya) 100 mg subcut .Q56 DAYS Check with primary doctor 05/28/21 [History Last Taken 3 Weeks Ago ~06/11/22] losartan 100 mg-hydrochlorothiazide 25 mg tablet 1 tab PO DAILY bp 05/28/21 [History Last Taken 07/02/22] omega-3 fatty acids 1,000 mg PO DAILY supplement\ 05/28/21 [History Last Taken 07/02/22] rosuvastatin 20 mg tablet 20 mg PO QHS cholesterol 05/28/21 [History Last Taken 07/01/22] metformin 500 mg tablet 1,000 mg PO BID DM 06/27/22 [History Last Taken 07/02/22] docusate sodium 100 mg capsule (Colace) 100 mg PO DAILY 07/08/22 [History Last Taken Unknown] oxycodone-acetaminophen 5 mg-325 mg tablet 1 tab PO Q4H PRN pain 20 days #80 tabs 07/08/22 [Rx Last Taken 07/11/22 08:30] lidocaine-prilocaine 2.5 %-2.5 % topical cream 1 applic topical ONCE PRN port access 30 days #30 grams 07/14/22 [Rx Last Taken Unknown] ondansetron 8 mg disintegrating tablet 8 mg PO Q8H PRN nausea and vomiting #30 tabs 07/14/22 [Rx Last Taken Unknown] potassium chloride 20 mEq tablet,extended release 20 meq PO DAILY #60 tabs 07/15/22 [Rx Last Taken Unknown] Allergy/AdvReac Type Severity Reaction Status Date / Time acetaminophen [From Vicodin] Allergy Itching Verified 07/21/22 14:20 hydrocodone [From Vicodin] Allergy Itching Verified 07/21/22 14:20 Family History Father Myocardial infarction Mother Osteoporosis Brother Heart disease Sister Arthritis Surgical History History of arthroscopy of right knee Hx of colonoscopy Hx of eye surgery Hx of hemorrhoidectomy Hx of surgical procedure Hx of tonsillectomy Social History household members: significant other current occupational status: retired Smoking Status: Former smoker quit date: 03/30/05 alcohol intake: current alcohol intake frequency: other details: used to drink alcohol daily but hasn't drank anything for about a month substance use type: other details: edibles for sleeping diet: diabetic ROS ROS ED ROS Narrative A complete review of systems was performed and is negative except as documented in the history of present illness. Some specific details below. Constitutional: No recent fevers or chills. She is now eating and drinking well. EYE: No visual complaints or pain. ENT: No difficulty swallowing. No swelling. No pain. CV: No chest pain or palpitations. Respiratory: No dyspnea. No hemoptysis. No difficulty taking breaths. GI: Please see history of present illness. She had diarrhea but is now resolved. She has no nausea vomiting now. : See history of present illness. No frequency dysuria or hematuria. Musculoskeletal: No recent trauma. She has the pain that she describes as right hip but is really right iliac crest/SI area pain. No radicular symptoms. This has been going on for at least 3 weeks. Skin: No rash. Nondiaphoretic. Neuro: No weakness or numbness. Endocrine: No polyuria or polydipsia. EXAM Physical Exam Narrative Exam Narrative: CONSTITUTIONAL: Patient is nontoxic in appearance. The patient looks comfortable. I had initially tried to see her but she was in the restroom at that time. HEENT: No notable trauma. Mucous membranes moist. EYES: No conjunctival injection. No proptosis. CARDIOVASCULAR: Regular rate. Regular rhythm. No notable murmur. No JVD. RESPIRATORY: No respiratory distress. Breathing is unlabored. No wheezes. No rhonchi. No rales. No pain with a deep breath. GASTROINTESTINAL: Not distended. Bowel sounds are normal. No tenderness. No guarding. No rebound. No palpable mass. No bruit. GENITOURINARY: No tenderness over the bladder. Bladder does not feel enlarged. No CVA tenderness. MUSCULOSKELETAL: Atraumatic. No peripheral edema. No cord. No tenderness along the deep venous system. No asymmetry. She has minimal paraspinal tenderness very very low really at the SI joint on the right. No skin changes. NEUROLOGICAL: Patient is alert and appropriate. No focal deficit noted. SKIN: No noted rashes. No diaphoresis. PSYCHIATRIC: Patient is calm. Mood is appropriate. Const Vital Signs: 07/21/22 14:19 Temperature 97 F L Temperature Source Temporal Pulse Rate 81 Respiratory Rate 16 Blood Pressure 121/74 H Blood Pressure Mean 89 Pulse Ox 100 Oxygen Delivery Method Room Air MDM MDM MDM Narrative Medical decision making narrative: The nurse had done a bladder scan prior to the patient going to the restroom. It was about 470 cc. After restroom and resting for a few minutes it was down to 140 range and the patient feels normal now. Urinalysis shows no sign of infection. I long talk with patient and . They were told that they need a catheter. However, this is when she had not urinated for about 12 hours. After she got here she was able to urinate. She states she has urinated a couple times since and it feels normal now. She has a long-term history of having trouble starting her urine at times. My suspicion is this is gotten worse due to the radiation t herapy that she is now undergoing. We explained that we would like to try to avoid a catheter due to risk of infection. Especially since this catheter would likely be long-term during her entire course of radiation. She would prefer not having the catheter also. I explained that she may have further symptoms and may end up getting a catheter. But if we can hold off that would be good. She is comfortable with this plan. Lab Data Labs: Laboratory Results - last 24 hr 07/21/22 16:15 Urine Color Yellow Urine Clarity Sl. Cloudy Urine pH 6.0 Ur Specific [place] 1.010 Urine Protein 30 H Urine Glucose (UA) 1000 H Urine Ketones Negative Urine Occult Blood Negative Urine Nitrite Negative Urine Bilirubin Negative Urine Urobilinogen Normal Ur Leukocyte Esterase 25 H Urine RBC 0 SEEN Urine WBC 0-5 SEEN Ur Squamous Epith Cells 0-5 SEEN Amorphous Sediment 1+ URATE Urine Bacteria 0 SEEN Urine Mucus 0 SEEN Discharge Plan Triage Chief Complaint: Complaint ED Provider: Josue Gonsalves Dx/Rx/DC Orders Clinical Impression: Acute urinary retention, Rectal cancer Instructions: ED Urinary Retention, Female Prescriptions: No Action metoprolol succinate 25 mg capsule,sprinkle,ER 24hr 25 mg PO DAILY amlodipine 5 mg tablet 5 mg PO DAILY metformin 500 mg tablet 1,000 mg PO BID Hold Instructions: Resume on 07/05/22. for 48 hrs from IV contrast docusate sodium [Colace] 100 mg capsule 100 mg PO DAILY lidocaine-prilocaine 2.5-2.5 % cream 1 applic topical ONCE PRN (Reason: port access) 30 Days Qty: 30 2RF ondansetron 8 mg tablet,disintegrating 8 mg PO Q8H PRN (Reason: nausea and vomiting) Qty: 30 1RF losartan-hydrochlorothiazide 100-25 mg tablet 1 tab PO DAILY biotin 500 mcg Capsule 1 mg PO DAILY omega-3 fatty acids Capsule 1,000 mg PO DAILY rosuvastatin 20 mg tablet 20 mg PO QHS Glucosamine Complex-MSM Capsule 1 cap PO DAILY cholecalciferol (vitamin D3) [Vitamin D3] 125 mcg (5,000 unit) Tablet 250 mcg PO DAILY Farxiga 5 mg tablet 5 mg PO QHS Tremfya 100 mg/mL auto-injector 100 mg SUBCUT .Q56 DAYS oxycodone-acetaminophen 5-325 mg tablet 1 tab PO Q4H PRN (Reason: pain) 20 Days Qty: 80 0RF Rx Instructions: take 1-2 tabs q4-6 hrs prn pain potassium chloride 20 mEq tablet extended release 20 meq PO DAILY Qty: 60 0RF Rx Instructions: Take 40 mEq (2 tablets) today, then 20 mEq (1 tablet) daily Primary Care Provider: Jesica Wilson Referrals: Jesica Wilson DO [Primary Care Provider] - 3-5 Days if not improving Disposition Disposition: Home, Self Care
[2022-07-21 16:25] LABS: Bacteria 0 SEEN /hpf (None Seen); Mucous, Urine 0 SEEN /hpf (<or=2+); Red Blood Cells-Urine 0 SEEN /hpf (0-5)
[2022-07-21 16:36] LABS: Color, Urine Yellow (Yellow); Glucose, Dipstick 1000 mg/dl (Normal); Ketone-Dipstick Negative (Negative); Leukocyte Esterase-Dipstick 25 /ul (Negative); Nitrite-Dipstick Negative (Negative); Occult Blood-Urine Negative /ul (Negative); Protein-Dipstick 30 mg/dl (Negative); Urine Bilirubin Dipstick Negative (Negative); Urine Clarity Sl. Cloudy (Clear); Urine Urobilinogen Normal (Normal)
[2022-07-21 17:24] LABS: Amorphous Sediment 1+ URATE; Squamous Epithelial Cells - UA 0-5 SEEN /hpf (5-10); White Blood Cells 0-5 SEEN /hpf (0-5)
[2022-07-21 17:54] VITALS: BMI 30.5
== END 2022-07-21 18:32 | disposition home or self-care (01) ==
PROVIDERS: Emergency Provider Emergency Medicine; PCP Internal Medicine; Visit Provider Emergency Medicine
DX: R33.9 Retention of urine, unspecified (principal); C20 Malignant neoplasm of rectum; K76.0 Fatty (change of) liver, not elsewhere classified; G47.30 Sleep apnea, unspecified; Z87.891 Personal history of nicotine dependence
CPT/HCPCS: 81001; 87086; 87088; 99282

== ENCOUNTER 2022-09-29 18:13 | Emergency (ER) | payer BC, SELFPAY ==
[2022-09-29 18:14] VITALS: BP 154/87; PULSE 98; RESP 16; TEMP 36.6; O2SAT 97; BMI 27.8
--- NOTE | 2022-09-29 18:49 | CT_ITS ---
INDICATION: Pain EXAMINATION: CT BRAIN - CT Head or Brain W/O Contrast Injection TECHNIQUE: Multiple axial images were obtained of the head without intravenous contrast. A radiation dose optimization technique was used for this scan. IV Contrast dosage and agent: None. RADIATION DOSAGE (If Supplied By Facility): CTDIvol = ( 44.99 ) mGy, DLP = ( 812.98 ) mGycm COMPARISON: None FINDINGS: BRAIN PARENCHYMA: No intra- or extra-axial hemorrhage. No evidence of acute infarct. No intracranial mass or mass effect. There is preservation of the poole/white matter interface. Posterior fossa structures are unremarkable. CSF SPACES: Appropriate for age. No hydrocephalus. Basal cisterns are patent. CALVARIUM, SKULL BASE, PARANASAL SINUSES AND MASTOID AIR CELLS: Clear. No discrete lytic or blastic abnormalities. ORBITS: Left ocular lens replacement. ASPECTS Score for Acute Strokes: 10 CT/Brain/Head without Contrast IMPRESSION: Negative Brain CT without contrast. Electronically Signed: Juan Gann MD at 20:24 EDT ,
--- NOTE | 2022-09-29 18:49 | EX.ED.VIS.HA ---
HPI History of Present Illness Chief Complaint: Headache Informant: patient Narrative Narrative: Patient states that she has a headache. Patient states she started this headache somewhere between about 5:00 and 7:00 in the evening yesterday. It was just a mild headache at first. But it is gotten worse. It is in the front and top of the head. She has had nausea but no vomiting. No fevers or chills. No numbness tingling or weakness. She may have had some visual scotoma last night. She states that several times she got flashing bright lights through her eyes. She was not sure if it was lightening outside or if it was just in her eyes. But she is not having that now. She does have a history of migraines but has them just occasionally. They are not a regular feature. This is like her other headaches that she has had. Of note she is on pain meds chronically because of her rectal cancer. She is on a fentanyl patch. It was due to be changed this morning. She took off her patch and did not put a new one on because she was concerned having it on with a headache. She also takes 10 mg of oxycodone about 3 times a day. She states she did not want to take this for the headaches because normally her pain meds do not work for her headaches. She has had no trauma. She does have a history of rectal cancer. They did radiation and chemo. Her last treatments were over 5 weeks ago. She was not having headaches with them. She is not sure if they are going to do surgery yet. They are waiting to gauge response. [facility] Medical History Alcohol use Anemia Anemia Anxiety Cancer Cardiology follow-up encounter Chronic neck and back pain CINV (chemotherapy-induced nausea and vomiting) CPAP (continuous positive airway pressure) dependence Depression Diabetes Diabetes Diarrhea Dietary restriction Elevated serum creatinine Encounter for chemotherapy management Encounter for education Fatigue Fatty liver Former smoker High cholesterol History of steroid therapy History of stress test HPV test positive Hypertension Hypokalemia Left thyroid nodule Low grade squamous intraepithelial lesion (LGSIL) Migraine headache Mucositis (ulcerative) due to antineoplastic therapy Post-menopausal Regional lymph node metastasis present Restless legs Shortness of breath on exertion Sleep apnea Syncope Thyroid disease Urinary retention Wears glasses Wears partial dentures Home Medications amlodipine 5 mg tablet 5 mg PO DAILY heart 05/10/18 [History Last Taken 07/11/22 07:00] metoprolol succinate 25 mg capsule sprinkle, ext. release 24 hr 25 mg PO DAILY bp 05/10/18 [History Last Taken 07/11/22 07:00] biotin 500 mcg capsule 1 mg PO DAILY supplement 05/28/21 [History Last Taken Unknown] cholecalciferol (vitamin D3) 125 mcg (5,000 unit) tablet (Vitamin D3) 250 mcg PO DAILY supplement 05/28/21 [History Last Taken 07/02/22] dapagliflozin propanediol 5 mg tablet (Farxiga) 5 mg PO QHS DM 05/28/21 [History Last Taken 07/01/22] ykhzkibbtqn-zuw-rqpowmzon-vitC capsule (Glucosamine Complex-MSM capsule) 1 cap PO DAILY supplement 05/28/21 [History Last Taken 07/02/22] guselkumab 100 mg/mL subcutaneous auto-injector (Tremfya) 100 mg subcut .Q56 DAYS Check with primary doctor 05/28/21 [History Last Taken 3 Weeks Ago ~06/11/22] losartan 100 mg-hydrochlorothiazide 25 mg tablet 1 tab PO DAILY bp 05/28/21 [History Last Taken 07/02/22] omega-3 fatty acids 1,000 mg PO DAILY supplement\ 05/28/21 [History Last Taken 07/02/22] rosuvastatin 20 mg tablet 20 mg PO QHS cholesterol 05/28/21 [History Last Taken 07/01/22] metformin 500 mg tablet 1,000 mg PO BID DM 06/27/22 [History Last Taken 07/02/22] docusate sodium 100 mg capsule (Colace) 100 mg PO DAILY 07/08/22 [History Last Taken Unknown] lidocaine-prilocaine 2.5 %-2.5 % topical cream 1 applic topical ONCE PRN port access 30 days #30 grams 07/14/22 [Rx Last Taken Unknown] ondansetron 8 mg disintegrating tablet 8 mg PO Q8H PRN nausea and vomiting #30 tabs 07/14/22 [Rx Last Taken Unknown] loperamide 2 mg capsule (Imodium A-D) 2 mg PO Q4H PRN 07/23/22 [History Last Taken Unknown] lansoprazole 30 mg capsule,delayed release (Prevacid) 30 mg PO DAILY 07/28/22 [History Last Taken Unknown] omeprazole magnesium 10 mg oral suspension,delayed release (Prilosec) 10 mg PO DAILY 07/29/22 [History Last Taken Unknown] silver sulfadiazine 1 % topical cream 1 applic topical BID #85 grams 08/06/22 [Rx Last Taken Unknown] potassium chloride 20 mEq tablet,extended release 20 meq PO DAILY #30 tabs 08/07/22 [Rx Last Taken Unknown] lamotrigine 25 mg tablet (Lamictal) 25 mg PO DAILY 08/20/22 [History Last Taken Unknown] fentanyl 62.5 mcg/hour transdermal patch 1 patch transdermal Q72H 09/25/22 [History Last Taken Unknown] Allergy/AdvReac Type Severity Reaction Status Date / Time acetaminophen [From Vicodin] Allergy Itching Verified 09/29/22 18:14 hydrocodone [From Vicodin] Allergy Itching Verified 09/29/22 18:14 Family History Father Myocardial infarction Mother Osteoporosis Brother Heart disease Sister Arthritis Surgical History History of arthroscopy of right knee Hx of colonoscopy Hx of eye surgery Hx of hemorrhoidectomy Hx of surgical procedure Hx of tonsillectomy Social History household members: significant other current occupational status: retired Smoking Status: Former smoker quit date: 03/30/05 alcohol intake: current alcohol intake frequency: other details: used to drink alcohol daily but hasn't drank anything for about a month substance use type: other details: edibles for sleeping diet: diabetic ROS ROS ED ROS Narrative A complete review of systems was performed and is negative except as documented in the history of present illness. Some specific details below. Constitutional: No recent fevers or chills. No rigors. Patient has not generally felt ill. No malaise. EYE: No discharge, no ocular pain. She did have the flashing lights last night as in history of present illness. ENT: No difficulty swallowing. No swelling. No sinus pressure or pain. No nasal discharge. No change in hearing. No ear pain. CV: No chest pain, pressure or aching. No palpitations or irregular beats. Patient has not been presyncopal or syncopal. Respiratory: No trouble breathing. No cough. No wheezing. No sputum production. No pain with breathing. GI: No abdominal pain. She has had nausea all day but no vomiting diarrhea. She has some chronic rectal pain but its not an issue tonight. : No frequency dysuria or hematuria. Musculoskeletal: No recent trauma. No pains. No swelling. Skin: No rash. No diaphoresis. Neuro: No weakness or numbness. No difficulty with speaking. No difficulty understanding speech. No visual loss. Please see history of present illness also. Endocrine: No polyuria or polydipsia. EXAM Physical Exam Narrative Exam Narrative: CONSTITUTIONAL: Patient is nontoxic in appearance. She does prefer a dark room. She looks like she is uncomfortable. But she carries on normal conversation and is a good informant. HEENT: No notable trauma. Mucous membranes moist. No sinus tenderness. She has no isolated temporal artery tenderness. She has some scalp tenderness everywhere but is not different at the temporal arteries. EYES: No conjunctival injection. No proptosis. No pain with range of motion. Funduscopic exam shows no marked abnormalities. She has mild photophobia only. NECK: No meningismus. No JVD. Range of motion is normal looking up down left and right without discomfort. CARDIOVASCULAR: Regular rate. Regular rhythm. No notable murmur. No JVD. RESPIRATORY: No respiratory distress. Breathing is unlabored. No wheezes. No rhonchi. No rales. No pain with a deep breath. GASTROINTESTINAL: Not distended. Bowel sounds are normal. No tenderness. No guarding. No rebound. No palpable mass. No bruit. GENITOURINARY: No tenderness over the bladder. No CVA tenderness. MUSCULOSKELETAL: Atraumatic. No peripheral edema. No cord. No tenderness along the deep venous system. No asymmetry. NEUROLOGICAL: Patient is alert and oriented. No focal deficit noted. NIH stroke scale is 0. SKIN: No noted rashes. No diaphoresis. No vesicles noted. PSYCHIATRIC: Patient is calm. Mood is appropriate. Const Vital Signs: 09/29/22 18:14 09/29/22 22:13 Temperature 97.9 F Temperature Source Temporal Pulse Rate 98 103 H Respiratory Rate 16 15 Blood Pressure 154/87 H 177/90 H Blood Pressure Mean 109 119 Pulse Ox 97 96 Oxygen Delivery Method Room Air Room Air MDM MDM MDM Narrative Medical decision making narrative: Nurse had told me that her blood work might be significantly abnormal because there was some saline that may have been in her med port flush. We have got back a hemoglobin is low at 5.3. But the patient does not look this anemic. We are waiting to get her electrolytes back. If these show some similar abnormalities of dilution we will likely redraw this. We were able to redraw her blood. Her CBC shows minimal anemia with a hemoglobin of 11.0 this is more consistent with her exam. Electrolytes showed mildly low potassium at 3.0. No other marked abnormalities Patient's liver function test are overall normal. My independent interpretation the patient's CT of the head without contrast shows no sign of bleeding or mass. Final reading is also negative. We could not do CT angiogram until we got back her kidney function. We had to redraw her blood for kidney function. It took quite some time before the lab to cancel her first draw. We have now redrawn this and her kidney function is normal so we can get the CTA. Patient is rather frustrated and upset. I explained that I cannot order the contrast study until I have her kidney function back in this situation. She and her are also concerned that is going to be hard to manage her headache. She states there is nothing that really helps these headaches when she gets them. We will try Dilaudid. If she does not have any significant aneurysm we may try some Toradol with her after the CT. I explained that it will be difficult to manage this headache as she is on both chronic oral narcotics and transdermal narcotics and so she is going to be highly tolerant and somewhat resistant to narcotic pain meds. But there are limits of other medicines I have available. Patient CT a of the head is read as normal. Patient has been up walking to the restroom. She has stable. Normal neurologic exam. I rechecked the patient. She is actually feeling much better now. She states she has some headache. I did talk to her for a while. But she still has some. But is markedly improved and she wants to go home. I told her that while she is here we will give a little bit more meds for pain. My concern of this patient is on chronic long-term narcotics. She had taken off her fentanyl patch. She now has put a new one on. But this may take a while to come up to level. At this time I have no indication of acute bleed meningitis vascular abnormality. She is neurologically intact. She has had these headaches before. I think it is reasonable to get her home. Lab Data Attestation: I reviewed the patient's lab results. Labs: Laboratory Results - last 24 hr 09/29/22 09/29/22 09/29/22 19:23 19:23 21:20 WBC Cancelled 6.5 Corrected WBC Cancelled RBC Cancelled 3.64 L Hgb Cancelled 11.0 L Hct Cancelled 33.5 L MCV Cancelled 92.0 MCH Cancelled 30.2 MCHC Cancelled 32.8 RDW Std Deviation Cancelled 57.1 H RDW Coeff of Iva Cancelled 16.8 H Plt Count Cancelled 226 MPV Cancelled 8.2 Immature Gran % (Auto) Cancelled 0.600 Neut % (Auto) Cancelled 80.4 H Lymph % (Auto) Cancelled 11.0 L Jackson % (Auto) Cancelled 7.8 Eos % (Auto) Cancelled 0.0 Baso % (Auto) Cancelled 0.2 Absolute Neuts (auto) Cancelled 5.3 Absolute Lymphs (auto) Cancelled 0.72 L Total Counted Cancelled Neutrophils % (Manual) Cancelled Band Neutrophils % Cancelled Lymphocytes % (Manual) Cancelled Monocytes % (Manual) Cancelled Eosinophils % (Manual) Cancelled Basophils % (Manual) Cancelled Metamyelocytes % Cancelled Myelocytes % Cancelled Promyelocytes % Cancelled Blast Cells % Cancelled Plasma Cell % (Manual) Cancelled Other Cells % Cancelled Nucleated RBC % Cancelled 0 Nucleated RBCs/100 WBC Cancelled Differential Comment Cancelled Diff Path Review Cancelled Hypersegmented Neuts Cancelled Atypical Lymphocytes Cancelled Reactive Lymphocytes Cancelled Smudge Cells Cancelled Toxic Granulation Cancelled Toxic Vacuolation Cancelled Dohle Bodies Cancelled Fermin Rods Cancelled Platelet Estimate Cancelled Plt Morphology Comment Cancelled RBC Morphology Cancelled Cancelled Polychromasia Cancelled Hypochromasia Cancelled Poikilocytosis Cancelled Basophilic Stippling Cancelled Anisocytosis Cancelled Microcytosis Cancelled Macrocytosis Cancelled Spherocytes Cancelled Sickle Cells Cancelled Target Cells Cancelled Tear Drop Cells Cancelled Ovalocytes Cancelled Stomatocytes Cancelled [place] Bodies Cancelled [place] Cells Cancelled Bite Cells Cancelled Crenated Cell Cancelled Acanthocytes (Spur) Cancelled Rouleaux Cancelled Schistocytes Cancelled Sodium Cancelled 135 L Potassium Cancelled 3.0 L Chloride Cancelled 101 Carbon Dioxide Cancelled 25.0 Anion Gap Cancelled 9 BUN Cancelled 11 Creatinine Cancelled 0.68 Estim Creat Clear Calc Cancelled 87.64 Est GFR (MDRD) Af Amer Cancelled 112 Est GFR (MDRD) Non-Af Cancelled 93 BUN/Creatinine Ratio Cancelled 16.1 Glucose Cancelled 168 H Calcium Cancelled 9.2 Total Bilirubin Cancelled 0.80 AST Cancelled 17 ALT Cancelled 13 Alkaline Phosphatase Cancelled 61 Total Protein Cancelled 7.2 Albumin Cancelled 2.9 L Globulin Cancelled 4.3 H Albumin/Globulin Ratio Cancelled 0.7 L Radiography Diagnostic Testing: Clinical Impression(s) from Imaging Studies Brain CT 09/29/22 18:49 IMPRESSION: Negative Brain CT without contrast. Electronically Signed: Juan Gann MD at 20:24 EDT , Head CTA 09/29/22 22:20 IMPRESSION: Negative CTA Head. Electronically Signed: Juan Gann MD at 23:37 EDT , Discharge Plan Triage Chief Complaint: Headache ED Provider: Josue Gnosalves Dx/Rx/DC Orders Clinical Impression: Chronic pain after cancer treatment, Headache Instructions: ED Headache Unspecified Prescriptions: No Action metoprolol succinate 25 mg capsule,sprinkle,ER 24hr 25 mg PO DAILY amlodipine 5 mg tablet 5 mg PO DAILY metformin 500 mg tablet 1,000 mg PO BID Hold Instructions: Resume on 07/05/22. for 48 hrs from IV contrast docusate sodium [Colace] 100 mg capsule 100 mg PO DAILY lidocaine-prilocaine 2.5-2.5 % cream 1 applic topical ONCE PRN (Reason: port access) 30 Days Qty: 30 2RF ondansetron 8 mg tablet,disintegrating 8 mg PO Q8H PRN (Reason: nausea and vomiting) Qty: 30 1RF lansoprazole [Prevacid] 30 mg capsule,delayed release(DR/EC) 30 mg PO DAILY loperamide [Imodium A-D] 2 mg capsule 2 mg PO Q4H PRN Rx Instructions: administer after each loose stool until symptoms controlled; do not exceed 8 mg per 24 hrs Prilosec 10 mg susp,delayed release for recon 10 mg PO DAILY silver sulfadiazine 1 % cream 1 applic topical BID Qty: 85 3RF Rx Instructions: apply a 1.5 mm thickness to area of lori-anal desquamation fentanyl 62.5 mcg/hour patch 72 hour 1 patch transdermal Q72H Rx Instructions: Rx for 50mcg + 75mcg = 125mcg lamotrigine [Lamictal] 25 mg tablet 25 mg PO DAILY losartan-hydrochlorothiazide 100-25 mg tablet 1 tab PO DAILY biotin 500 mcg Capsule 1 mg PO DAILY omega-3 fatty acids Capsule 1,000 mg PO DAILY rosuvastatin 20 mg tablet 20 mg PO QHS Glucosamine Complex-MSM Capsule 1 cap PO DAILY cholecalciferol (vitamin D3) [Vitamin D3] 125 mcg (5,000 unit) Tablet 250 mcg PO DAILY Farxiga 5 mg tablet 5 mg PO QHS Tremfya 100 mg/mL auto-injector 100 mg SUBCUT .Q56 DAYS potassium chloride 20 mEq tablet extended release 20 meq PO DAILY Qty: 30 1RF Primary Care Provider: Jesica Wilson Referrals: Jesica Wilson DO [Primary Care Provider] - 3-5 Days Disposition Disposition: Home, Self Care
[2022-09-29] MEDS: proCHLORPERazine 10 MG/2 ML Vial IV (19:21)
[2022-09-29] MEDS: DiphenhydrAMINE 50 MG/ML Syringe IV (19:22)
[2022-09-29] MEDS: 0.9% Normal Saline 1,000 ML 999 ML IV (19:22)
[2022-09-29 21:26] LABS: Absolute Lymphocyte Count 0.72 X10^3/uL (0.83-4.51); Absolute Neutrophil Count 5.3 X10^3/uL (2.0-7.7); Basophil# 0.01 X10^3/uL; Basophil% 0.2 % (0-1); Hematocrit 33.5 % (37-47); Lymphocyte # 0.72 X10^3/ul (0.83-4.51); Mean Corp Hgb Conc 32.8 g/dL (32-36); Mean Corpuscular Hgb 30.2 pg (27.0-32.0); Mean Platelet Vol. 8.2 fl (6.2-12.0); Monocyte# 0.51 X10^3/uL; Monocyte% 7.8 % (0-10); NRBC Flagged by Analyzer 0 % (0-5); Neutrophil # 5.26 X10^3/uL (2.7-7.7); Neutrophil % 80.4 % (47-70); Platelet Count 226 K/mm3 (150-450); RBC Distribution Width CV 16.8 % (11.6-14.6); RBC Distribution Width SD 57.1 fl (35.1-43.9); Red Blood Count 3.64 M/mm3 (4.2-5.4); White Blood Count 6.5 K/mm3 (4.4-11.0)
[2022-09-29 21:44] LABS: ALB/GLOB Ratio 0.7 RATIO (0.9-2.4); AST(SGOT) 17 U/L (15-37); Alanine Aminotransfer ALT/SGPT 13 U/L (13-56); Albumin, Serum 2.9 g/dL (3.2-5.0); Alkaline Phosphatase 61 U/L (45-117); Anion Gap 9 (5-15); BUN 11 mg/dL (7-18); BUN/Creat Ratio 16.1 RATIO (10-20); Calcium,Total 9.2 mg/dL (8.5-10.1); Chloride 101 mmol/L (98-107); Creatinine, Serum 0.68 mg/dL (0.55-1.02); EST Glomerular Filtration Rate 93 mL/min (>60); Est Glom Filt Rate - Afr Amer 112 mL/min (>60); Estimated Creatinine Clearance 87.64 ml/min; Globulin 4.3 g/dL (2.2-4.2); Glucose 168 mg/dL (74-106); Protein, Total 7.2 g/dL (6.4-8.2); Sodium Level 135 mmol/L (136-145)
[2022-09-29 22:13] VITALS: BP 177/90; PULSE 103; RESP 15; O2SAT 96
--- NOTE | 2022-09-29 22:20 | CT_ITS ---
INDICATION: Headache EXAMINATION: CTA HEAD - CT Head or Brain WO/W Contrast Injection TECHNIQUE: [place] [facility] [place]/head CT angiogram protocol was performed following IV contrast. 3D reconstructions were reviewed. A radiation dose optimization technique was used for this scan. IV Contrast dosage and agent: 75 mL [id number]-370 RADIATION DOSAGE (If Supplied By Facility): CTDIvol = ( 18.45 ) mGy, DLP = ( 408.81 ) mGycm COMPARISON: Concurrent noncontrast head CT FINDINGS: --Anterior circulation: ICAs: No significant stenosis at the intracranial/visualized segments. ACAs: No significant stenosis at the visualized segments. ACOM: Present. MCAs: No significant stenosis at the visualized segments. --Posterior circulation: PCOMs: Visualized. cake decorator: No significant stenosis at the visualized segments. BASILAR ARTERY: No significant stenosis. VERTEBRAL ARTERIES: No significant stenosis at the intradural/visualized segments. No evidence of intracranial aneurysm or vascular malformation. CT/CTA Head W/WO Contrast IMPRESSION: Negative CTA Head. Electronically Signed: Juan Gann MD at 23:37 EDT ,
[2022-09-29] MEDS: HYDROmorphone 1 MG/ML Syringe IV (23:29)
[2022-09-30] MEDS: HYDROmorphone 0.5 MG/0.5 ML SYRINGE IV (00:25)
[2022-09-30 00:45] VITALS: BP 162/97; PULSE 107; RESP 15; O2SAT 96
== END 2022-09-30 00:47 | disposition home or self-care (01) ==
PROVIDERS: Emergency Provider Emergency Medicine; PCP Internal Medicine; Visit Provider Emergency Medicine
DX: G89.3 Neoplasm related pain (acute) (chronic) (principal); C20 Malignant neoplasm of rectum; E11.9 Type 2 diabetes mellitus without complications; R51.9 Headache, unspecified; D63.0 Anemia in neoplastic disease; I10 Essential (primary) hypertension; E78.00 Pure hypercholesterolemia, unspecified; Z79.84 Long term (current) use of oral hypoglycemic drugs; Z79.891 Long term (current) use of opiate analgesic; Z79.899 Other long term (current) drug therapy; Z87.891 Personal history of nicotine dependence
CPT/HCPCS: 70450; 70496; 80053; 85025; 96361; 96374; 96375; 96376; 99283; J7030; Q9967; A4216

== ENCOUNTER → 2022-10-13 | Outpatient (CLI) | payer BC, SELFPAY | END | disposition home or self-care (01) | LOC: LABSPEC 11:24 | PROVIDERS: PCP Internal Medicine; Referring Provider Obstetrics & Gynecology; Visit Provider Obstetrics & Gynecology | DX: N89.8 Other specified noninflammatory disorders of vagina (principal) | CPT/HCPCS: 87070; 87205 ==

== ENCOUNTER 2022-10-29 11:43 | Outpatient (RCR) | payer BC, SELFPAY | END 2022-11-27 23:59 | LOC: NS 11:43 | PROVIDERS: PCP Internal Medicine; Visit Provider Student in an Organized Health Care Education/Training Program | DX: Z71.3 Dietary counseling and surveillance (principal); C20 Malignant neoplasm of rectum ==

== ENCOUNTER → 2022-10-31 | Outpatient (CLI) | payer BC, SELFPAY ==
--- NOTE | 2022-10-31 13:28 | SP.MBSS_ITS ---
Modified Barium Swallow Patient Information Study Date: 10/31/22 Study Time: 13:00 Direct Billable Minutes: 60 Total Minutes procedure & reportin Diagnosis: Dysphagia R13.10 Referring Physician: Antwan Mi Reason for Referral: Objectively assess swallow function, risk for aspiration and to determine recommendations for LRD and compensatory strategies to improve safety of swallow. 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 From 07/14/2022 ? 08/27/2022 she completed definitive chemoradiation. See chart for full PMH. Referred by oncologist, Dr. Mi for suspected dysphagia d/t complaint of swallowing difficulty. Patient reports feeling of drinks/food feeling stuck while eating, feels like it is not going down. Notices globus sensation daily, occasionally takes OTC Tums for reflux. Denies any coughing/choking w/ PO intake. Current Diet Ordered: Regular / Thin Dentition: Partials Mental Status: WNL Respiratory Status: Oxygenating on Room Air Penetration-Aspiration Scale Penetration-Aspiration Scale: OBJECTIVE ASSESSMENT OF SWALLOW FUNCTION (QUANTITATIVE ? PER TRIAL): PENETRATION / ASPIRATION SCALE (GUPTA): 1 = does not enter airway 2 = enters airway/above vocal folds/ejected 3 = enters airway/above vocal folds/not ejected 4 = enters airway/contacts vocal folds/ejected 5 = enters airway/contacts vocal folds/not ejected 6 = enters airway/below vocal folds/ejected 7 = enters airway/below vocal folds/not ejected despite effort 8 = enters airway/below vocal folds/no effort VIDEOFLOROSCOPIC SCALE SCORE (GUPTA): Grade I = aspiration of material that has penetrated into the laryngeal vestibule, intact cough reflex Grade II = aspiration < 10 % of the bolus, intact cough reflex Grade III = aspiration of < 10 % of the bolus, reduced cough reflex or aspiration of > 10 % of the bolus, intact cough reflex Grade IV = aspiration of > 10 % of the bolus, reduced cough reflex Penetration-Aspiration Scale Score Thin Liquid via teaspoon: Result: 1= does not enter airway Thin Liquid via teaspoon Trial 2: Result: 1= does not enter airway Thin Liquid via single sip from cup: Result: 1= does not enter airway Thin Liquid via sequential sips from straw: Result: 1= does not enter airway [place] Thick Liquid via single sip from cup: Result: 1= does not enter airway Honey Thick Liquid via single sip from cup: Result: 1= does not enter airway Pudding via teaspoon: Result: 1= does not enter airway Cookie: Result: 1= does not enter airway Oral Phase Labial Seal: No Labial Escape Oral Residue: Trace residue lining oral structures Pharyngeal Phase Initiation of Pharyngeal Swallow: Bolus head in valleculae Soft Palate Elevation: No bolus between soft palate and pharyngeal wall Laryngeal Elevation: Comp. Superior move thyroid cart w/comp. apprx arytenoid cart-epig pet Anterior Hyoid Excursion: Complete anterior movement Epiglottic Movement: Complete inversion Laryngeal Vestibule Closure at Height of Swallow: Complete; no air/contrast in laryngeal vestibule Pharyngeal Stripping Wave: Present - diminished Pharyngoesophageal Segment Opening: Complete distension and complete duration; no obstruction of flow Pharyngeal Residue: Trace residue within or on pharyngeal structures Esophageal Phase Esophageal Clearance: Esophageal retention w/ retrograde flow below pharyngoesophageal seg. Diagnosis/Impression Diagnosis: Esophageal Dysphagia R13.14 Impression: Patient presents w/ adequate swallow function for oral and pharyngeal phase of swallow. No penetration/aspiration was observed during the study w/ various consistencies. No further skilled ST is warranted. Important to note that the patient did not have timely clearance w/ thin liquids and pudding w/ retrograde flow below the UES. Patient's initial complaint was globus sensation likely d/t suspected reflux. Evaluating MEAT WRAPPER spoke w/ Dr. Mi on GI referral for further intervention. Patient and physician in agreement w/ ST recommendations. Recommendations Diet: Regular Textures and Thin Liquids Compensatory Strategies: Alternate bites/solids and sips/liquids, Sitting upright and Remain sitting upright for 30 minutes after PO intake Recommend Repeat Modified Barium Swallow: No Need for Skilled Speech Therapy Services: No Recommended Referrals: GI Consult Education Completed: 1. Described result of evaluation. and 2. Pt understands evaluation & agrees with goals and treatment plan. Status Active ST Patient: Active Contact Information [facility] Speech Therapy:: Maria Elena Fuchs M.A. [facility] Speech-Language Pathologist [facility] [address] [place] [address] [phone]
== END | disposition home or self-care (01) ==
LOC: RAD 12:52
PROVIDERS: PCP Internal Medicine; Referring Provider Student in an Organized Health Care Education/Training Program; Visit Provider Student in an Organized Health Care Education/Training Program
DX: R13.10 Dysphagia, unspecified (principal)
CPT/HCPCS: 74230; 92611

== ENCOUNTER → 2022-11-24 | Outpatient (CLI) | payer BC, SELFPAY ==
--- NOTE | 2022-11-24 11:38 | MRI_ITS ---
STUDY: MR PELVIS WITH T WITHOUT CONTRAST REASON FOR EXAM: Female, 62 years old. follow up treated locally advanced SCC of rectum -- please compare to prior TECHNIQUE: Standardized fat and water weighted pulse sequences were obtained in all 3 orthogonal planes, pre-and post contrast administration. IV 15ml clariscan was administered for the contrast portion of the examination. COMPARISON: Prior study dated: July 02, 2022, MRI pelvis. Also compared with PET CT November 25, 2022. FINDINGS: Overall quality exam, especially postcontrast enhanced images is poor due to motion. Compared to prior exam there is significant interval decrease in the mural thickening and adjacent mass. No appreciable invasion into the vagina. Does appear to be invasion into the coccygeus muscle on the right is less of fat plane between the ill-defined enhancing colorectal thickening, between 6 and 8 cm from the anal verge. In the area of the previously seen perirectal mass, there is a residual 2.8 x 2.6 x 3.5 cm perirectal mass, left of the rectum, showing low T2 and T1 signal, enhancing rim, 5 mm in thickness, with central signal. There is loss of fat plane of this mass between the adjacent rectum. This is favored to represent a necrotic lymph node or mass. This is located 6cm from the anal verge. There is an adjacent 8 mm lymph node. Large fibroid uterus. No visible osseous invasion. MRI/Pelvis W/WO Contrast IMPRESSION: Ill-defined area of abnormal colorectal wall thickening and enhancement involving at least the areas between 6 and 8 mm from the anal verge. Previously seen vaginal invasion is not visualized on this exam. There is right coccygeus muscle invasion. Interval decrease in size of large left perirectal mass with residual roughly 3 cm perirectal mass and adjacent 9 mm lymph node. Electronically Signed: Sadi Christensen DO at 20:31 EDT ,
[2022-11-24 12:04] LABS: CREATININE FINGERSTICK < 0.9 mg/dL (0.55-1.02); EGFR FINGERSTICK > 60.0000 mL/min (>60)
[2022-11-24] MEDS: 0.9 % NaCl (Sterile) Posiflush 10 mL IV (12:34)
== END | disposition home or self-care (01) ==
LOC: MRI 10:59
PROVIDERS: PCP Internal Medicine; Referring Provider Student in an Organized Health Care Education/Training Program; Visit Provider Student in an Organized Health Care Education/Training Program
DX: C20 Malignant neoplasm of rectum (principal)
CPT/HCPCS: 72197; A9575; A4216

== ENCOUNTER 2022-12-09 08:07 | Day surgery (SDC) | payer BC, SELFPAY ==
[2022-12-09] VITALS (9 sets, daily range): BP systolic 114–174; BP diastolic 66–91; PULSE 56–69; RESP 16–18; TEMP 36.4–36.8; O2SAT 92–98; BMI 27.3
--- NOTE | 2022-12-09 | CER_PTH ---
PATIENT: SUSANNE MEJIA LOC: [facility] [place] U#:[id number] AGE/SX: 62/F ROOM: RE12/09/[address]: Dr. India Richardson DO : 1960 BED: DIS: 12/09/2022 SPEC #: [id number] RECD: 12/09/22 12:29 STATUS: LIVIA REAkilah #: [id number] MILAN: 12/09/22 00:[address]: India Richardson DEPT: SURGICAL PATHOLOGY RECD BY: Jeancarlos Bacon ENTERED: 12/09/22 12:29 SP TYPE: CERV OTHR DR: Dr. Jesica Wilson DO Tissues: Uterine cervix, NOS Procedures: Surgery Specimen Level V HEADER OPERATION: LEEP cone, colposcopy PRE-OP DIAGNOSIS: Squamous cell carcinoma of rectum; cancer-associated pain; low-grade squamous intraepithelial lesion TISSUE SUBMITTED: Cervical biopsy MICROSCOPIC DIAGNOSIS Cervix, LEEP cone biopsy: Focal squamous metaplasia and minimal atypia. Resections are free of dysplastic changes. Chronic inflammation. See comment. SJ:yaw 12/10/2022 COMMENT Immunohistochemistry ([id number]) for surrogate HPV marker (p16) supports the above diagnosis. Epithelium is denuded in most of the specimen. The findings may represent therapy related changes. Please make reference to previous specimen ([id number]), rectal mass, biopsy with diagnosis of invasive well to moderately differentiated squamous cell carcinoma. Case has been reviewed in consultation with Dr. Truong who concurs with the above diagnosis. IDC:AM MICROSCOPIC DESCRIPTION Slides are reviewed. GROSS DESCRIPTION Received in fixative is one container labeled with the patient's name and designated cervical biopsy. The specimen consists of a piece of horton, indurated tissue consistent with LEEP cone biopsy measuring 2.5 x 1.5 x 0.9 cm. The specimen is previously opened. Also present in the container is a detached piece of horton, indurated tissue measuring 0.6 x 0.5 x 0.5 cm. No mucosal lesion is identified. Non-mucosal surface is inked black. Endocervical margin of the larger piece is inked black. The entire specimen is submitted in four cassettes with each cassette containing one quadrant. Cassette 4 also contains the detached piece of tissue. / OK:yaw 12/09/2022 TC:5 CPT: 38421
--- NOTE | 2022-12-09 | IMM_PTH ---
PATIENT: SUSANNE MEJIA LOC: [facility] – [place] U#:[id number] AGE/SX: 62/F ROOM: RE12/09/[address]: Dr. India Richardson DO : 1960 BED: DIS: 12/09/2022 SPEC #: [id number] RECD: 12/10/22 14:36 STATUS: LIVIA REQ #: [id number] MILAN: 12/09/22 00:[address]: India Richardson DEPT: IMMUNOHISTOCHEMISTRY RECD BY: Alba Peralta ENTERED: 12/10/22 14:37 SP TYPE: IMMUNO OTHR DR: Dr. Jesica Wilson DO Tissues: Uterine cervix, NOS Procedures: p16 (initial) KI-67 (add) P16 (add) PHYSICIAN & INSTITUTION [place] [id number] SPECIMEN INFORMATION: Tissue Source: Cervical biopsy Clinical Info: Squamous cell carcinoma of rectum, LGSIL Specimen Number: [id number] #2 & 4 CPT code: 50806, 93490 x3 METHODOLOGY: Deparaffinized sections of prefer/formalin-fixed tissue or PAP/DQ stained slides are incubated with monoclonal/polyclonal antibodies/oligonucleotide probes. Localization is made via biotin free immunoperoxidase method. Appropriate controls are performed and reacted as expected. Results on target cell population are indicated in the following table: RESULTS: ANTIBODY / CLONE RESULT Block 2 P16 (E6H4) positive, focal, patchy Ki-67 (30-9) positive, very low, <1% Block 4 P16 (E6H4) positive, focal, patchy Ki-67 (30-9) positive, very low These tests were developed and their performance characteristics determined by [facility]. They may not have been cleared or approved by the U.S. Food and Drug Administration. The FDA has determined that such clearance or approval is not necessary. The above immunohistochemical/dualISH markers are ordered and reviewed by the Pathologist. INTERPRETATION: Cervical biopsy: Focal minimal atypia. SJ:yaw 12/11/2022
--- NOTE | 2022-12-09 08:33 | PCM.HP.BLA ---
History and Physical Date of Admission: 12/09/22 Intake Vital Signs 10/13/2309:18 10/29/2310:50 10/30/2308:56 10/30/2308:58 Height 5 ft 8 in 5 ft 8 in 5 ft 8 in 5 ft 8 in Weight: 175 lb BMI 26.6 BP 115/66 Intake Visit Reasons: Colposcopy Toe Sewer Required: No Is patient in pain?: No Allergies acetaminophen [From Vicodin] Allergy (Verified 10/30/22 09:56) Itchinghydrocodone [From Vicodin] Allergy (Verified 10/30/22 09:56) Itching Medications amlodipine 5 mg tablet 5 mg PO DAILY heart 05/10/18 [History Confirmed 10/30/22] metoprolol succinate 25 mg capsule sprinkle, ext. release 24 hr 25 mg PO DAILY bp 05/10/18 [History Confirmed 10/30/22] biotin 500 mcg capsule 1 mg PO DAILY supplement 05/28/21 [History Confirmed 10/30/22] cholecalciferol (vitamin D3) 125 mcg (5,000 unit) tablet (Vitamin D3) 250 mcg PO DAILY supplement 05/28/21 [History Confirmed 10/30/22] dapagliflozin propanediol 5 mg tablet (Farxiga) 5 mg PO QHS DM 05/28/21 [History Confirmed 10/30/22] pdccfyvqsks-knt-etpynwvkn-vitC capsule (Glucosamine Complex-MSM capsule) 1 cap PO DAILY supplement 05/28/21 [History Confirmed 10/30/22] guselkumab 100 mg/mL subcutaneous auto-injector (Tremfya) 100 mg subcut .Q56 DAYS Check with primary doctor 05/28/21 [History Confirmed 10/30/22] losartan 100 mg-hydrochlorothiazide 25 mg tablet 1 tab PO DAILY bp 05/28/21 [History Confirmed 10/30/22] omega-3 fatty acids 1,000 mg PO DAILY supplement\ 05/28/21 [History Confirmed 10/30/22] rosuvastatin 20 mg tablet 20 mg PO QHS cholesterol 05/28/21 [History Confirmed 10/30/22] metformin 500 mg tablet 1,000 mg PO BID DM 06/27/22 [History Confirmed 10/30/22] docusate sodium 100 mg capsule (Colace) 100 mg PO DAILY 07/08/22 [History Confirmed 10/30/22] lidocaine-prilocaine 2.5 %-2.5 % topical cream 1 applic topical ONCE PRN port access 30 days #30 grams 07/14/22 [Rx Confirmed 10/30/22] ondansetron 8 mg disintegrating tablet 8 mg PO Q8H PRN nausea and vomiting #30 tabs 07/14/22 [Rx Confirmed 10/30/22] loperamide 2 mg capsule (Imodium A-D) 2 mg PO Q4H PRN 07/23/22 [History Confirmed 10/30/22] lansoprazole 30 mg capsule,delayed release (Prevacid) 30 mg PO DAILY 07/28/22 [History Confirmed 10/30/22] omeprazole magnesium 10 mg oral suspension,delayed release (Prilosec) 10 mg PO DAILY 07/29/22 [History Confirmed 10/30/22] silver sulfadiazine 1 % topical cream 1 applic topical BID #85 grams 08/06/22 [Rx Confirmed 10/30/22] potassium chloride 20 mEq tablet,extended release 20 meq PO DAILY #30 tabs 08/07/22 [Rx Confirmed 10/30/22] lamotrigine 25 mg tablet (Lamictal) 25 mg PO DAILY 08/20/22 [History Confirmed 10/30/22] fentanyl 62.5 mcg/hour transdermal patch 1 patch transdermal Q72H 09/25/22 [History Confirmed 10/30/22] triamcinolone acetonide 0.5 % topical cream 1 applic topical BID 7 days #15 grams 10/21/22 [Rx Confirmed 10/30/22] rimegepant 75 mg disintegrating tablet (Nurtec ODT) 75 mg PO ONCE PRN 10/28/22 [History Confirmed 10/30/22] Post menopausal: No Patient : No : No PFSH PFSH Medical History Alcohol use Anemia Anemia Anxiety Cancer Cardiology follow-up encounter Chronic neck and back pain CINV (chemotherapy-induced nausea and vomiting) CPAP (continuous positive airway pressure) dependence Depression Diabetes Diabetes Diarrhea Dietary restriction Elevated serum creatinine Encounter for chemotherapy management Encounter for education Fatigue Fatty liver Former smoker High cholesterol History of steroid therapy History of stress test HPV test positive Hypertension Hypokalemia Left thyroid nodule Low grade squamous intraepithelial lesion (LGSIL) Migraine headache Mucositis (ulcerative) due to antineoplastic therapy Post-menopausal Regional lymph node metastasis present Restless legs Shortness of breath on exertion Sleep apnea Syncope Thyroid disease Urinary retention Wears glasses Wears partial dentures Surgical History History of arthroscopy of right knee Hx of colonoscopy Hx of eye surgery Hx of hemorrhoidectomy Hx of surgical procedure Hx of tonsillectomy Family History Father Myocardial infarctionMother OsteoporosisBrother Heart diseaseSister Arthritis Social History household members: significant other current occupational status: retired Smoking Status: Former smoker quit date: 03/30/05 alcohol intake: current alcohol intake frequency: other details: used to drink alcohol daily but hasn't drank anything for about a month substance use type: other details: edibles for sleeping diet: diabetic History 0 Elective abortions Hx Para 0 Spontaneous abortions Hx # Term Pregnancies Ectopic pregnancies Hx # Pregnancies Multiple births # of living children HPI Colposcopy Details: SUSANNE MEJIA is a 62 year old who presents for colposcopy. She is tearful stating that she is afraid that it will hurt since she had radiation treatment for her rectal cancer. Her colposcopy today is scheduled for LGSIL HPV + pap. 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 Patient attempted to relax and accept a speculum but was unable to tolerate insertion of the smallest speculum. The procedure was discontinued. Skin General: no rashes or lesions noted Psych Appearance: grossly normal Speech and Movement: speech and movement normal Office Procedures Colposcopy biopsy Details: procedure discontinued due to patient discomfort. Coding Level of Care Code Attention Curriculum And Instruction Director Diagnoses Squamous cell carcinoma of rectum C20 Cancer associated pain G89.3 Low grade squamous intraepithelial lesion (LGSIL) Assessment and Plan Assessment and Plan (1) Squamous cell carcinoma of rectum: Status: Chronic (2) Cancer associated pain: Status: Acute (3) Low grade squamous intraepithelial lesion (LGSIL): Status: Acute Comment: colposcopy in 3-4 months Orders: Orders Colposcopy Today Z12.4 - Encounter for screening for malignant neoplasm of cervix Plan plan to continue the colposcopy in the OR with LEEP procedure. consent signed After discussing the patient's diagnosis and treatment plan options, patient wishes to proceed with surgical management. I have discussed with the patient the risks, benefits, and alternatives of the procedure which include but are not limited to risks of anesthesia, bleeding, infection, possible damage to bowel, bladder, or surrounding vasculature which could lead to additional surgery to evaluate any complications. Patient agrees to procedure and wishes to proceed. ACOG/uptodate references given for additional information regarding procedure.
[2022-12-09] MEDS: Lactated Ringers 1,000 ML 15 ML IV (08:47)
[2022-12-09] MEDS: FERRIC SUBSULFATE 8 GM SOLN (09:22)
[2022-12-09 09:38] LABS: Bedside Glucose 103 mg/dL (74-106)
--- NOTE | 2022-12-09 09:45 | DCINST_ITS ---
Discharge Instructions Diet Discharge Diet: No restrictions Activity Discharge Activity: Return to Normal Activity and [address] (while taking narcotic pain mediations.) May resume sexual activity in: 4 weeks (Nothing in the vagina for 4 weeks.) Dressing / Incision Call your doctor if you observe: Fever of 101 or Higher and Using more than 1 pad per hour Follow Up Care Please Follow Up With: India Richardson DO When: Call [phone] for follow-up appointment. Test Results: Test results from this visit will be discussed in further detail at your follow- up appointment, if applicable. Discharge Plan Admission Primary Reason for Your Visit: colposcopy and leep procedure Attending Provider: India Richardson Primary Care Provider: Jesica Wilson Discharge Orders/Prescriptions Prescriptions: Continued metoprolol succinate 25 mg capsule,sprinkle,ER 24hr 25 mg PO DAILY amlodipine 5 mg tablet 5 mg PO DAILY metformin 500 mg tablet 1,000 mg PO BID Hold Instructions: Resume on 07/05/22. for 48 hrs from IV contrast docusate sodium [Colace] 100 mg capsule 100 mg PO DAILY PRN (Reason: constipation) ondansetron 8 mg tablet,disintegrating 8 mg PO Q8H PRN (Reason: nausea and vomiting) Qty: 30 1RF fentanyl 62.5 mcg/hour patch 72 hour 1 patch transdermal Q72H Rx Instructions: Rx for 50mcg + 75mcg = 125mcg Nurtec ODT 75 mg tablet,disintegrating 75 mg PO ONCE PRN (Reason: MIGRANES) Rx Instructions: as a single dose losartan-hydrochlorothiazide 100-25 mg tablet 1 tab PO DAILY biotin 500 mcg Capsule 1 mg PO DAILY omega-3 fatty acids Capsule 1,000 mg PO DAILY rosuvastatin 20 mg tablet 20 mg PO QHS Glucosamine Complex-MSM Capsule 1 cap PO DAILY cholecalciferol (vitamin D3) [Vitamin D3] 125 mcg (5,000 unit) Tablet 250 mcg PO DAILY Farxiga 5 mg tablet 5 mg PO QHS oxycodone 10 mg tablet 10 mg PO Q4H PRN (Reason: pain) Patient Comments: Take two (2) tabs (=20mg)Cfor moderate pain or three (3) tabs (=30mg) for severe pain by mouth every 4 hours as needed for cancer pain escitalopram oxalate [Lexapro] 10 mg tablet 10 mg PO DAILY Referrals / Follow Up: Jesica Wilson DO [Primary Care Provider] - Disposition Disposition (needs filled in before D/C Order can be placed): Home, Self Care
[2022-12-09] MEDS: ACETIC ACID 5% OPERA.SITE (10:09)
[2022-12-09] MEDS: Lidocaine 2% /Epi 1:100 (20ml) 20 ML VIAL (10:16)
--- NOTE | 2022-12-09 10:29 | PCM.OPRPT ---
Problems Associated Problem List Diagnoses (1) LGSIL on Pap smear of cervix: (2) HPV (human papilloma virus) anogenital infection: (3) Squamous cell carcinoma of rectum: Report of Operation Date of Procedure: 12/09/22 Pre-Operative Diagnosis: LGSIL, + hPV, Anorectal cancer Post-Operative Diagnosis: LGSIL, + hPV, Anorectal cancer Surgery/Procedure Performed:: colposcopy, LEEP Type of Anesthesia: MAC/Supplemental/Local Specimen's removed: cervical LOOP (biopsy) Estimated Blood Loss (mL): 0 Description of Procedure: Patient was taken to the operating room and placed under MAC anesthesia prepped and draped in normal sterile fashion the dorsal lithotomy position. A colposcopy was performed by applying dilute acetic acid to the cervix and observing acetowhite widespread changes. There were petechia on the cervix as well as abnormal vessels centrally. On the periphery at the 9:00 and 2:00 positions were areas of abnormal tissue growth. This did not appear to have the typical HPV changes that are seen under colposcopy. They were not ulcerations or punctations but more like papular appearing abnormalities. The cervix itself was small and the petechia noted was likely secondary to the trauma of inserting the speculum. A Paracervical block was placed with 2% lidocaine and using a 1 cm x1 cm loop electrode the outer part of the cervix was removed including the squamocolumnar junction and both of the atypical appearing papular lesions. Endocervical curettings were not taken due to extreme cervical stenosis. The base of the cervix was cauterized around the borders and the base to obtain excellent hemostasis. Monsel's paste was placed and patient was awoken and taken recovery in stable condition. Complications none Admit VTE Documentation VTE Present on Admission: No VTE Mechan Device Prophylaxis: SCD's VTE Pharm Prophylaxis ordered?: No Multi Select Codes Urinary/Genital Urinary/Genital CPT Codes: 93294 LEEP + [place]
[2022-12-09] MEDS: oxyCODONE 5 MG Tablet 10 MG PO (11:27)
== END 2022-12-09 12:04 | disposition home or self-care (01) ==
LOC: SDC 08:09 → AC 08:10
PROVIDERS: PCP Internal Medicine; Referring Provider Obstetrics & Gynecology; Visit Provider Obstetrics & Gynecology
PROC: 0UBC7ZZ Excision of Cervix, Via Natural or Artificial Opening (ICD-10-PCS; CPT 57522; principal; 2022-12-09 09:30)
DX: C20 Malignant neoplasm of rectum (principal); C21.8 Malignant neoplasm of overlapping sites of rectum, anus and anal canal; E11.9 Type 2 diabetes mellitus without complications; A63.0 Anogenital (venereal) warts; R87.612 Low grade squamous intraepithelial lesion on cytologic smear of cervix (LGSIL); E78.00 Pure hypercholesterolemia, unspecified; I10 Essential (primary) hypertension; K76.0 Fatty (change of) liver, not elsewhere classified; G47.30 Sleep apnea, unspecified; F32.A Depression, unspecified; F41.9 Anxiety disorder, unspecified; Z87.891 Personal history of nicotine dependence; Z79.84 Long term (current) use of oral hypoglycemic drugs; Z79.899 Other long term (current) drug therapy
CPT/HCPCS: 57461; 00940; 82962; 88305; 88307; 88341; 88342; J7120; A4216; J2405

== ENCOUNTER → 2022-12-24 | Outpatient (CLI) | payer BC, SELFPAY | END | disposition home or self-care (01) | LOC: LABSPEC 15:20 | PROVIDERS: PCP Internal Medicine; Referring Provider Obstetrics & Gynecology; Visit Provider Obstetrics & Gynecology | DX: R30.0 Dysuria (principal) | CPT/HCPCS: 87086 ==

== ENCOUNTER → 2023-02-25 | Outpatient (CLI) | payer BC, SELFPAY ==
--- NOTE | 2023-02-25 11:28 | MRI_ITS ---
EXAM: MR PELVIS WITHOUT AND WITH INTRAVENOUS CONTRAST CLINICAL INDICATION: follow up treated SCC of rectum, non-surg tx -- please compare to prior TECHNIQUE: Multiplanar and multisequence MR images of the pelvis without and with intravenous contrast. CONTRAST: 17ml Clariscan COMPARISON: MR Pelvis dated 11/24/2022 FINDINGS: BOWEL: No evidence of residual rectal mass. APPENDIX: No evidence of acute appendicitis. INTRAPERITONEAL SPACE: Normal. No ascites or other fluid collection. BLADDER: Normal. OVARIES: Unremarkable as visualized. No mass or complex cyst. UTERUS/CERVIX: Fibroid uterus again noted with dominant 7 cm posterior fibroid again seen. SUBPERITONEAL SPACE: Previously noted 3.0 x 2.4 cm necrotic mass within the left perirectal space has decreased in size now measuring 18 x 18 mm. BONES/JOINTS: Normal. SOFT TISSUES: The thickening along the right levator ani muscle is unchanged. LYMPH NODES: Normal. No enlarged iliac lymph nodes. MRI/Pelvis W/WO Contrast IMPRESSION: 1. Decreasing size of the necrotic left perirectal lymph node. 2. No evidence of residual rectal mass. Electronically Signed: Chacho Chadwick MD at 8:36 EST ,
[2023-02-25 12:02] LABS: CREATININE FINGERSTICK < 1.0 mg/dL (0.55-1.02); EGFR FINGERSTICK > 60.0000 mL/min (>60)
[2023-02-25] MEDS: 0.9 % NaCl (Sterile) Posiflush 10 mL IV (12:50)
== END | disposition home or self-care (01) ==
LOC: MRI 11:26
PROVIDERS: PCP Internal Medicine; Referring Provider Student in an Organized Health Care Education/Training Program; Visit Provider Student in an Organized Health Care Education/Training Program
DX: C20 Malignant neoplasm of rectum (principal)
CPT/HCPCS: 72197; A9575; A4216

== ENCOUNTER → 2023-05-01 | Outpatient (CLI) | payer BC, SELFPAY ==
--- NOTE | 2023-05-01 09:59 | BI_ITS ---
MAMMOGRAPHY - BILATERAL SCREENING REASON FOR EXAM: Female, 63 years old. Routine annual screening examination. PERTINENT HISTORY: Non-contributory. TECHNIQUE: Digital bilateral breast mariama (3D mammographic acquisition) in the CC and MLO projections. 2-D mediolateral oblique (MLO) and craniocaudad (CC) views of both breasts were obtained. CAD: Full Field Digital Mammography with Computer Added Detection was performed. COMPARISON: Comparison is made with prior study dated October 02, 2021 and February 15, 2019. FINDINGS: Breast Composition: The breasts are almost entirely fatty. There are no dominant masses or suspicious calcifications. Stable small benign-appearing bilateral axillary lymph nodes. No other significant abnormalities are identified. There has been no significant change since the prior study. BI/SCRN MAMM (CAD)W/MARIAMA BILAT IMPRESSION: Stable bilateral screening mammogram. Yearly follow-up mammogram recommended. (A) ASSESSMENT CATEGORY: BIRADS Category 2: Benign. A letter regarding these results will be sent to the patient by the facility within 30 days. Approximately 10% of breast cancers are not detected by mammography. A normal mammogram should not delay biopsy of a clinically suspicious abnormality. [id number] Electronically Signed: Alcides Will MD at 13:03 EST ,
== END | disposition home or self-care (01) ==
LOC: OPBI 09:58
PROVIDERS: PCP Internal Medicine; Referring Provider Internal Medicine Hematology & Oncology; Visit Provider Internal Medicine Hematology & Oncology
DX: Z12.31 Encounter for screening mammogram for malignant neoplasm of breast (principal)
CPT/HCPCS: 77063; 77067

== ENCOUNTER → 2023-05-28 | Outpatient (CLI) | payer BC, SELFPAY ==
--- NOTE | 2023-05-28 13:24 | MRI_ITS ---
EXAM: MR PELVIS WITHOUT AND WITH INTRAVENOUS CONTRAST CLINICAL INDICATION: follow up treated SCC of rectum -- please compare to prior TECHNIQUE: Multiplanar and multisequence MR images of the pelvis without and with intravenous contrast. CONTRAST: IV 19 cc Clariscan COMPARISON: MR Pelvis dated 02/25/2023 and 11/24/2022 FINDINGS: BOWEL: Continued decrease in the size of the mass lesion contiguous with the left side of the distal rectum now measuring 15 mm in maximum diameter. Normal cleavage plane between the rectum and vaginal cavity. INTRAPERITONEAL SPACE: Normal. No ascites or other fluid collection. BLADDER: Urinary bladder is normal. OVARIES: Unremarkable as visualized. No mass or complex cyst. UTERUS/CERVIX: No change in the fibroid uterus. Persistent dominant posterior 6 cm fibroid and multiple additional 2 cm and smaller fibroids throughout the remainder of the myometrium. Fibroids again noted to distort the endometrial cavity. BONES/JOINTS: Normal. SOFT TISSUES: Normal. No pelvic wall hernia. LYMPH NODES: Normal. No evidence of residual or recurrent rectal large anal mass. No perirectal space adenopathy. No iliac adenopathy. OTHER FINDINGS: Mild thickening of the posterior portion of the right pelvic diaphragm again noted likely postop change. MRI/Pelvis W/WO Contrast IMPRESSION: 1. No evidence of recurrent neoplasm. 2. Decreasing size of the soft tissue nodule adjacent to the left side of the distal rectum. 3. Stable fibroid uterus. Electronically Signed: Chacho Chadwick MD at 14:13 EST ,
[2023-05-28] MEDS: 0.9% Saline Lock 10 ML Syringe IV (14:28)
== END | disposition home or self-care (01) ==
PROVIDERS: PCP Internal Medicine; Referring Provider Student in an Organized Health Care Education/Training Program; Visit Provider Student in an Organized Health Care Education/Training Program
DX: C20 Malignant neoplasm of rectum (principal)
CPT/HCPCS: 72197; A9575

== ENCOUNTER → 2023-10-23 | Outpatient (CLI) | payer BC, SELFPAY ==
--- NOTE | 2023-10-23 11:46 | MRI_ITS ---
EXAM: MR PELVIS WITHOUT AND WITH INTRAVENOUS CONTRAST CLINICAL INDICATION: treated rectal SCC, eval for disease -- please compare to prior TECHNIQUE: Multiplanar and multisequence MR images of the pelvis without and with intravenous contrast. CONTRAST: 20CC CLARISCAN COMPARISON: PET CT scan 10/20/2023, MR Pelvis dated 05/28/2023 FINDINGS: BOWEL: Unremarkable as visualized. No bowel distention. No focal inflammatory change. No evidence of residual or recurrent rectal mass. INTRAPERITONEAL SPACE: Normal. No ascites or other fluid collection. BLADDER: Normal. OVARIES: Not identified. UTERUS/CERVIX: Stable fibroid uterus. BONES/JOINTS: Normal. SOFT TISSUES: Normal. No pelvic wall hernia. LYMPH NODES: Previously noted left perirectal lymph node is no longer identified. MRI/Pelvis W/WO Contrast IMPRESSION: No evidence of residual or recurrent neoplasm. Electronically Signed: Chacho Chadwick MD at 9:39 EDT ,
== END | disposition home or self-care (01) ==
LOC: MRI 11:01
PROVIDERS: PCP Internal Medicine; Referring Provider Student in an Organized Health Care Education/Training Program; Visit Provider Student in an Organized Health Care Education/Training Program
DX: C20 Malignant neoplasm of rectum (principal)
CPT/HCPCS: 72197; A9575

== ENCOUNTER → 2023-12-29 | Outpatient (CLI) | payer BC, SELFPAY ==
--- NOTE | 2023-12-29 08:00 | US_ITS ---
INDICATION: POLYP EXAMINATION: Ultrasound US Abdomen Limited (quadrant) TECHNIQUE: Jordan scale and color doppler imaging was performed of the right upper quadrant. COMPARISON: No relevant prior comparison study available FINDINGS: LIVER: There is moderate increased echogenicity. The liver measures about 15.5 cm in length. The portal vein is patent with normal hepatopedal flow. No focal hepatic lesion. There is no free fluid. GALLBLADDER AND BILIARY TREE: No shadowing gallstone, pericholecystic fluid or gallbladder wall thickening is demonstrated. The gallbladder wall measures 2 mm. The proximal common bile duct measures 8 mm, which is mildly dilated. Sonographic Reyes''s sign: Negative. PANCREAS: The pancreas is grossly unremarkable but is suboptimally visualized due to overlying bowel gas. Right kidney: The right kidney measures 11.2 cm in length. The renal cortex measures 1.7 cm. No evidence of hydronephrosis. US/Gallbladder IMPRESSION: 1. Hepatic steatosis. 2. Mildly dilated common bile duct without evidence of gallstones. Electronically Signed: Juan Carlos Hammonds MD at 17:02 EDT ,
== END | disposition home or self-care (01) ==
PROVIDERS: PCP Internal Medicine; Referring Provider Internal Medicine; Visit Provider Internal Medicine
DX: K82.4 Cholesterolosis of gallbladder (principal)
CPT/HCPCS: 76705

== ENCOUNTER → 2023-12-31 | Outpatient (CLI) | payer BC, SELFPAY ==
[2023-12-31 12:14] LABS: Absolute Lymphocyte Count 1.27 X10^3/uL (0.83-4.51); Absolute Neutrophil Count 4.1 X10^3/uL (2.0-7.7); Basophil# 0.03 X10^3/uL; Basophil% 0.5 % (0-1); Eosinophils% 1.6 % (0-5); Hematocrit 43.5 % (37-47); Hemoglobin 13.8 g/dL (12.0-15.0); Lymphocyte # 1.27 X10^3/ul (0.83-4.51); Lymphocyte % 20.8 % (19-41); Mean Corp Hgb Conc 31.7 g/dL (32-36); Mean Corpuscular Hgb 28.9 pg (27.0-32.0); Mean Platelet Vol. 8.7 fl (6.2-12.0); Monocyte# 0.57 X10^3/uL; Monocyte% 9.3 % (0-10); NRBC Flagged by Analyzer 0 % (0-5); Neutrophil # 4.11 X10^3/uL (2.7-7.7); Neutrophil % 67.5 % (47-70); Platelet Count 220 K/mm3 (150-450); RBC Distribution Width CV 13.9 % (11.6-14.6); RBC Distribution Width SD 45.9 fl (35.1-43.9); Red Blood Count 4.78 M/mm3 (4.2-5.4); White Blood Count 6.1 K/mm3 (4.4-11.0)
[2023-12-31 13:05] LABS: AST(SGOT) 15 U/L (15-37); Alanine Aminotransfer ALT/SGPT 19 U/L (13-56); Albumin, Serum 3.8 g/dL (3.2-5.0); Alkaline Phosphatase 74 U/L (45-117); Bilirubin, Direct 0.19 mg/dL (0.00-0.30); Globulin 3.8 g/dL (2.2-4.2); Protein, Total 7.6 g/dL (6.4-8.2)
[2024-01-05 10:10] LABS: QNTFERON TB Mitogen Value > 10.00 IU/mL (.); QNTFERON TB Nil Value 0.04 IU/mL (.); QNTFERON TB1+ Ag Value 0.07 IU/mL (.); QNTFERON TB2+ Ag Value 0.07 IU/mL (.); QNTIFERON TB Positive Criteria Negative (Negative)
== END | disposition home or self-care (01) ==
PROVIDERS: PCP Internal Medicine; Referring Provider Nurse Practitioner Family; Visit Provider Nurse Practitioner Family
DX: Z79.899 Other long term (current) drug therapy (principal)
CPT/HCPCS: 36415; 80076; 85025; 86480

== ENCOUNTER → 2024-02-01 | Outpatient (CLI) | payer BC, SELFPAY ==
--- NOTE | 2024-02-01 12:13 | NM_ITS ---
CLINICAL: 63-year-old female with history of apparent abdominal pain. RADIONUCLIDE HEPATOBILIARY SCINTIGRAPHY COMPARISON: Abdominal ultrasound report 12/29/2023 FINDINGS: Following the intravenous administration of 5.5 mCi of 99m Tc Mebrofenin, hepatobiliary images reveal:. 1. Relatively prompt and homogeneous radiopharmaceutical concentration is noted by a normal sized liver. No parenchymal defects are identified. 2. Gallbladder activity is identified at 45 minutes post radiopharmaceutical administration. 3. Small intestinal tract is observed at 30 minutes following tracer injection. 4. Washout of the radiopharmaceutical by the hepatic parenchyma appears qualitatively normal. Cholecystokinin (0.02 ug/kg) was administered intravenously over a 30-minute period. The post CCK gallbladder ejection fraction calculated at 20 minutes following Cholecystokinin administration was noted to be 87.0 % (normal greater than 35%). During 30 minutes of post CCK imaging, there is scintigraphic evidence of refilling of the gallbladder. NM/Hepatobilliary Img w/Pharm Int IMPRESSION: 1. A gallbladder ejection fraction calculated to be greater than 35% following the administration of Cholecystokinin makes the probability of functional hepatobiliary disease (gallbladder dyskinesia) and/or organic hepatobiliary disease (chronic acalculous cholecystitis and/or cystic duct syndrome) to be low. (Ching Machado et al, Journal of Nuclear Medicine 32:1695, 1991). 2. An encountered normal gallbladder ejection fraction with refilling of the gallbladder following CCK administration may represent the presence of Sphincter of Oddi dysfunction. Correlation with Sphincter of Oddi manometry may be of benefit. (Stefani and Stefani, J Nucl Med 38:1824, 1997). Electronically Signed: Lai Reece DO at 7:39 EST ,
== END | disposition home or self-care (01) ==
LOC: NM 12:12
PROVIDERS: PCP Internal Medicine; Referring Provider Internal Medicine; Visit Provider Internal Medicine
DX: K76.0 Fatty (change of) liver, not elsewhere classified (principal)
CPT/HCPCS: 78227; A9537; J2805

== ENCOUNTER → 2024-02-29 | Outpatient (CLI) | payer BC, SELFPAY ==
[2024-02-29 10:59] LABS: Hepatitis B Surface Antibody Non-Reactive; Hepatitis B Surface Antigen Non-Reactive (Nonreactive); Hepatitis C Antibody Non-Reactive (Nonreactive)
[2024-03-01 05:07] LABS: Hepatitis A AB, Total Negative (Negative); Hepatitis B Core Ab Total Negative (Negative)
== END | disposition home or self-care (01) ==
LOC: LAB 09:22
PROVIDERS: PCP Internal Medicine; Referring Provider Nurse Practitioner Acute Care; Visit Provider Nurse Practitioner Acute Care
DX: K83.8 Other specified diseases of biliary tract (principal); K76.0 Fatty (change of) liver, not elsewhere classified
CPT/HCPCS: 36415; 86704; 86706; 86708; 86803; 87340

== ENCOUNTER → 2024-03-16 | Outpatient (CLI) | payer BC, SELFPAY ==
--- NOTE | 2024-03-16 08:12 | US_ITS ---
STUDY: ABDOMINAL ULTRASOUND - ELASTOGRAPHY REASON FOR VISIT: Female, 64 years old. Fatty infiltration of the liver. TECHNIQUE: Liver stiffness measurements were obtained on a [employer] RS 85 ultrasound machine using a CA 1-7 probe following the U guidelines. 3 measurements were obtained using a 2-D-SWE method. TheIQR/M was 12% suggesting a quality data set. TECHNICAL QUALITY: Adequate. COMPARISON: Comparison is made with prior examination dated December 29, 2023. FINDINGS: Liver: There is no demonstrated mass lesion. Median liver stiffness measured 8.3 kPa. Abdomen: There is no demonstrated mass lesion. US/Elastography Parenchyma/Organ IMPRESSION: Liver stiffness measures 8.3 kPa compatible with F2-F3 (Mild to moderate liver fibrosis) Metavir score. Electronically Signed: Alcides Will MD at 15:11 EST ,
== END | disposition home or self-care (01) ==
LOC: US 08:12
PROVIDERS: PCP Internal Medicine; Referring Provider Nurse Practitioner Acute Care; Visit Provider Nurse Practitioner Acute Care
DX: K83.8 Other specified diseases of biliary tract (principal); K76.0 Fatty (change of) liver, not elsewhere classified
CPT/HCPCS: 76981

== ENCOUNTER → 2024-05-02 | Outpatient (CLI) | payer BC, SELFPAY ==
--- NOTE | 2024-05-02 15:08 | BI_ITS ---
PROCEDURE: SCRN MAMM (CAD)W/MARIAMA BILAT REASON FOR EXAM: F, Age 64 y/o, routine mammographic follow-up. No family history of breast cancer. TECHNIQUE: Bilateral screening digital breast tomosynthesis with 2D and 3D images. Computer aided detection. COMPARISON: Prior exam(s) dating back to May 01, 2023.. FINDINGS: The breasts are almost entirely fatty. Stable examination. No suspicious masses, areas of developing architectural distortion, or suspicious calcifications. BI/SCRN MAMM (CAD)W/MARIAMA BILAT IMPRESSION: BI-RADS 1: NEGATIVE. RECOMMEND ANNUAL MAMMOGRAPHIC SCREENING. Follow-up code: Routine Follow-up The patient will be notified of the results by letter. Reading Location: [place] [address]
== END | disposition home or self-care (01) ==
LOC: OPBI 12:38
PROVIDERS: PCP Internal Medicine; Referring Provider Nurse Practitioner Family; Visit Provider Nurse Practitioner Family
DX: Z12.31 Encounter for screening mammogram for malignant neoplasm of breast (principal)
CPT/HCPCS: 77063; 77067

== ENCOUNTER → 2024-05-02 | Outpatient (CLI) | payer BC, SELFPAY ==
--- NOTE | 2024-05-02 12:37 | CT_ITS ---
PROCEDURE: CT CHEST AND ABD W/ CONTRAST REASON FOR EXAM: Treated rectal squamous cell carcinoma. TECHNIQUE: Chest and abdomen CT with intravenous contrast. COMPARISON: 10/20/2023 PET-CT. FINDINGS: CT CHEST: Hardware: None. Lymph nodes: No mediastinal, hilar, or axillary lymphadenopathy. Heart and Vasculature: Normal heart size. No pericardial effusion. Thoracic aorta and pulmonary arteries are unremarkable. Lungs and Airways: The lungs are normally expanded and clear. Pleura: No pleural effusion. No pneumothorax. CT ABDOMEN: Liver: Subcentimeter hypodense lesions that are too small to characterize but likely benign. Gallbladder: Unremarkable. Spleen: Unremarkable. Pancreas: Unremarkable. Adrenals: Unremarkable. Kidneys: Unremarkable. Bowel: Visualized loops of bowel in the upper abdomen are unremarkable. Lymph nodes: No suspicious lymph node enlargement at the upper abdomen. Vasculature: Moderate atherosclerosis. Peritoneum / Retroperitoneum: No ascites or free air at the upper abdomen. Bones: Degenerative changes of the spine. CT/CT Chest AND Abd W/ Contrast IMPRESSION: No evidence of malignancy/metastatic disease. One or more dose reduction techniques were used (e.g., Automated exposure contr ol, adjustment of the mA and/or kV according to patient size, use of iterative reconstruction technique). Reading Location: [id number]
--- NOTE | 2024-05-02 13:04 | MRI_ITS ---
PROCEDURE: PELVIS W/WO CONTRAST TECHNIQUE: Pelvis MRI without and with intravenous gadolinium-based contrast. CONTRAST: COMPARISON: None. FINDINGS: Uterus: Orientation: Anteverted and anteflexed. Fibroids: Multiple heterogeneous uterine wall lesions, consistent with fibroids. Right Ovary: Not clearly visualized. Left Ovary: Not clearly visualized. Bowel loops: No suspicious lesions. Bladder: Unremarkable. Cul-de-sac: No fluid. Visualized bowel is unremarkable. MRI/Pelvis W/WO Contrast IMPRESSION: No evidence of residual, recurrent or metastatic disease. Fibroid uterus. Reading [facility]
== END | disposition home or self-care (01) ==
PROVIDERS: PCP Internal Medicine; Referring Provider Student in an Organized Health Care Education/Training Program; Visit Provider Student in an Organized Health Care Education/Training Program
DX: C20 Malignant neoplasm of rectum (principal)
CPT/HCPCS: 71260; 72197; 74160; A9575; Q9967; A4216

== ENCOUNTER 2024-05-23 11:24 | Outpatient (RCR) | payer BC, SELFPAY | END 2024-05-23 19:00 | disposition home or self-care (01) | LOC: PT 11:24 | PROVIDERS: PCP Internal Medicine; Referring Provider Nurse Practitioner Family; Visit Provider Nurse Practitioner Family | DX: R32 Unspecified urinary incontinence (principal); Z85.048 Personal history of other malignant neoplasm of rectum, rectosigmoid junction, and anus ==

== ENCOUNTER → 2024-06-08 | Outpatient (CLI) | payer BC, SELFPAY ==
[2024-06-15 13:08] LABS: HPV APTIMA, High Risk Negative (Negative)
== END | disposition home or self-care (01) ==
LOC: LABSPEC 15:55
PROVIDERS: PCP Internal Medicine; Referring Provider Obstetrics & Gynecology; Visit Provider Obstetrics & Gynecology
DX: Z12.4 Encounter for screening for malignant neoplasm of cervix (principal)
CPT/HCPCS: 87624; 88175; G0145

== ENCOUNTER 2024-09-29 11:00 | Outpatient (RCR) | payer BC, SELFPAY ==
--- NOTE | 2024-11-09 12:41 | HP.PT.NRP ---
Patient Information Patient Information: SUSANNE MEJIA was seen in my office for initial evaluation on 07/26/24. The following Plan of Care was established for this patient: Anticipated Interventions Patient/Client Instruction: Educate patient on: Condition and Plan of Care For the Purpose of:: To improve muscle performance and motor function, To improve health and function, To improve self management and To improve tolerance to ADL's Therapeutic Exercise to Include: Strength training and Neuromotor development For the Purpose of:: To improve muscle performance and motor function, To improve health and function and To improve self management Manual Therapy Techniques to Include: Trigger point massage, Mobilization and Soft tissue mobilization For the Purpose of:: To improve muscle performance and motor function and To improve self management Last Seen Last Seen: This patient was last seen in our office 09/29/24. Pertinent comments regarding their Physical therapy will appear below: Spoke with patient by phone. She said she has noticed she is not doing the exercises as regularly as her control and accidents have worsened again. She reported 40% improvement when she was doing exercises regularly. Explained we are discharging her from PT and closing her chart. Gave her recommendations for continuing her home program to make it more manageable to continue. At this point I will be discontinuing this patient from physical therapy. I would be happy to see this patient again in the future if found appropriate by the physician. Thank you! Mita Vgoel
== END 2024-09-29 19:00 | disposition home or self-care (01) ==
LOC: PT 11:00
PROVIDERS: PCP Internal Medicine; Referring Provider Urology; Visit Provider Urology
DX: Z85.048 Personal history of other malignant neoplasm of rectum, rectosigmoid junction, and anus (principal); N39.46 Mixed incontinence; R15.9 Full incontinence of feces
CPT/HCPCS: 97112; 97140; 97162; 97530

== ENCOUNTER → 2024-10-04 | Outpatient (CLI) | payer SELFPAY ==
--- NOTE | 2024-10-04 08:35 | BD_ITS ---
PROCEDURE: DEXA BONE DENSITY STUDY 10/04/2024 REASON FOR EXAM: F, age 64 y/o . Postmenopausal. TECHNIQUE: DEXA BONE DENSITY STUDY COMPARISON: Prior study dated April 04, 2021. FINDINGS: BMD and T-SCORES Lumbar spine: 1.077 g/cm2, T-score 0.9 Levels: L1 through L4 Change from prior: Improvement of 15.2%. Left femoral neck: 0.759 g/cm2, T-score -0.8 Femoral neck comparison data not recommended for monitoring change. Left total hip: 0.976 g/cm2, T-score 0.3 Change from prior: Loss of 6.9%. Right femoral neck: 0.776 g/cm2, T-score -0.7 Femoral neck comparison data not recommended for monitoring change. Right total hip: 0.969 g/cm2, T-score 0.2 Change from prior: Loss of 6.2%. The World Health Organization has defined the following categories based on bone density: Normal bone density: T-score equal to or greater than -1.0 Osteopenia: T-score between -1.0 and -2.5 Osteoporosis: T-score equal to or less than -2.5 BD/Dexa Bone Density Study IMPRESSION: NORMAL T-SCORES. Recommend follow-up as clinically warranted. Reading Location: [place] [id number]
== END | disposition home or self-care (01) ==
PROVIDERS: PCP Internal Medicine; Referring Provider Internal Medicine; Visit Provider Internal Medicine
DX: Z13.820 Encounter for screening for osteoporosis (principal); Z78.0 Asymptomatic menopausal state
CPT/HCPCS: 77080

== ENCOUNTER 2025-01-18 07:27 | Day surgery (SDC) | payer MEDICARE, SELFPAY ==
[2025-01-18] VITALS (8 sets, daily range): BP systolic 91–147; BP diastolic 63–81; PULSE 61–64; RESP 16; TEMP 36.1–37.2; O2SAT 92–98; BMI 33.8
--- NOTE | 2025-01-18 07:42 | H&P.OPEN ---
HPI - General General Date of Service: 01/18/25 HPI Narrative SUSANNE MEJIA, is a 64 F who presents for surveillance colonoscopy due to history of rectal squamous cell cancer. No changes since office visit still having the rectal bleeding every 2 to 3 days with bowel movements. Office visit 12/20/2024 [facility] HPI: 64-year-old female presents for surveillance colonoscopy due to history of rectal squamous cell cancer. Patient did complete chemo/radiation treatment in July 2022 at [facility], MRI in April 2024 showed no evidence of residual recurrent metastatic disease.. Patient did have a sigmoidoscopy in May 2023 and in November 2023 did have a full colonoscopy which she did have a polyp at that time as well as some nonbleeding angioectasias. Patient states she does have bleeding?dark red to bright red?about 2 to 3 days a week with bowel movements but this has been chronic likely better than it was previously. Patient no longer wants to travel down to [facility] for colonoscopies and does see Dr. Godinez at [facility]. Patient states that she goes back and forth between constipation and diarrhea has been trying to increase her fiber using the Benefiber. Patient denies any abdominal pain/nausea/vomiting/reflux. [facility] Medical History Incontinence History of rectal cancer Screening for breast cancer Bladder disease Low iron Constipation Diarrhea Anemia Mucositis (ulcerative) due to antineoplastic therapy Elevated serum creatinine Urinary retention Encounter for chemotherapy management Encounter for education CINV (chemotherapy-induced nausea and vomiting) Hypokalemia Fatty liver Thyroid disease Wears partial dentures Anxiety Diabetes Anemia Restless legs Syncope Cardiology follow-up encounter HPV test positive Low grade squamous intraepithelial lesion (LGSIL) Regional lymph node metastasis present Left thyroid nodule Wears glasses Post-menopausal Cancer Depression Alcohol use History of steroid therapy High cholesterol Migraine headache Dietary restriction Former smoker CPAP (continuous positive airway pressure) dependence Sleep apnea Shortness of breath on exertion History of stress test Chronic neck and back pain Fatigue Diabetes Hypertension Home Medications ?Medication ?Instructions ?Recorded ?Last Taken ?Type amlodipine 5 mg tablet 5 mg PO DAILY heart 05/10/18 12/09/22 History cholecalciferol (vitamin D3) 125 250 mcg PO DAILY supplement 05/28/21 07/02/22 History mcg (5,000 unit) tablet (Vitamin D3) dapagliflozin propanediol 5 mg 5 mg PO QHS DM 05/28/21 07/01/22 History tablet (Farxiga) bzzcfhkrupd-uke-bpjziihyq-vitC 1 cap PO DAILY supplement 05/28/21 07/02/22 History capsule (Glucosamine Complex-MSM capsule) losartan 100 1 tab PO DAILY bp 05/28/21 07/02/22 History mg-hydrochlorothiazide 25 mg tablet rosuvastatin 20 mg tablet 20 mg PO QHS cholesterol 05/28/21 07/01/22 History metformin 500 mg tablet 1,000 mg PO BID DM 06/27/22 07/02/22 History escitalopram oxalate 10 mg tablet 10 mg PO DAILY 11/10/22 Unknown History (Lexapro) rizatriptan 10 mg tablet (Maxalt) See Rx Instructions PO .COMPLEX 04/29/23 Unknown History bupropion HCl 100 mg tablet,12 hr 100 mg PO QDAY 02/29/24 Unknown History sustained-release (Wellbutrin SR) metoprolol tartrate 50 mg tablet 50 mg PO BID 02/29/24 Unknown History omega-3 fatty acids 500 mg PO BID supplement\ 02/29/24 Unknown History guselkumab 100 mg/mL subcutaneous 100 mg subcut .[id number] 04/26/24 Unknown History syringe (Tremfya) Allergy/AdvReac Type Severity Reaction Status Date / Time acetaminophen (From Vicodin) Allergy Itching Verified 01/18/25 07:53 hydrocodone (From Vicodin) Allergy Itching Verified 01/18/25 07:53 Family History Father Myocardial infarction Mother Osteoporosis Brother Heart disease Sister Arthritis Surgical History H/O LEEP History of vascular access device Hx of eye surgery Hx of tonsillectomy Hx of hemorrhoidectomy History of arthroscopy of right knee Hx of colonoscopy Hx of surgical procedure Social History household members: significant other current occupational status: retired Smoking Status: Former smoker quit date: 03/30/05 alcohol intake: current alcohol intake frequency: other details: used to drink alcohol daily but hasn't drank anything for about a month substance use type: other details: edibles for sleeping diet: diabetic caffeine: Yes what type of physical activity do you participate in: walking frequency: daily Past Medical/Surgical History Previous Hospitalizations/Surgeries HX Hospitalizations: Yes (06/2022) Any Problems With Anesthesia: No You/Your Family Experience Fever (Hyperthermia) With Anes: No Cholinesterase deficiency: No Cardiovascular Hx Hypertension: Yes Respiratory Hx Sleep Apnea: Yes CPAP: Yes (NON COMPLIANT) BIPAP: No Hx Respiratory Tract Infection/Cold (presently): No Result (for STOP score): Positive Smoking Status: Former smoker Neurological Does patient have nerve stimulator: No Miscellaneous Recent Exposure to Contagious Disease: No Allergies acetaminophen (From Vicodin) Allergy (Verified 01/18/25 07:53) Itching hydrocodone (From Vicodin) Allergy (Verified 01/18/25 07:53) Itching Physical Exam Narrative ECOG 0- 1 Const alert and oriented x3 General Appearance: cooperative Neck no JVD Resp normal respiratory effort Cardio regular rate GI soft to palpation, non-tender and non-distended Extremity no clubbing, cyanosis or edema Skin no rashes or lesions noted Neuro oriented x3, CN's II-XII intact bilaterally and moves all extremities Speech: speech normal Psych mental status grossly normal Assessment & Plan Assessment/Plan (1) History of rectal cancer: Surgery Risks - Colonoscopy I discussed with the patient the risks of the procedure: Yes Risks Include but are not Limited To: Risks include but are not limited to: Bleeding, perforation requiring further surgery, inability to complete colonoscopy requiring barium enema.
[2025-01-18] MEDS: Lactated Ringers 1,000 ML 15 ML IV (08:05)
--- NOTE | 2025-01-18 08:14 | PCM.PRE.AN2 ---
ASA Classification* ASA Classification ASA Classification: 2 Assessment & Plan Anesthesia* Anesthesia Assessment Anesthesia Assessment: Discussed sedation and/or anesthesia options, risks, benefits, and alternatives with patient/parents/legal guardian/POA. Questions invited. The patient/parents/legal guardian/POA seems to understand and agrees to proceed with anesthesia plan. Reviewed the physical assessment, medical history, allergy history and patient home medications list prior to surgery/procedure/anesthetic and documented any changes. Performed airway and anesthesia risk assessments. Anesthesia Type Anesthesia Type: MAC Anesthesia Focused Assessment* Temperature: 99.0 F Pulse Rate: 64 Blood Pressure: 147/81 Respiratory Rate: 16 Pulse Ox: 98 Airway Assessment Mouth opens: >3 cm Mallampati Score: II Labs Anesthesia Preop lab: CBC WBC, (4.4-11.0) 6.0 K/mm3 12/07/24, 13:16 RBC, (4.2-5.4) 4.61 M/mm3 12/07/24, 13:16 Hgb, (12.0-15.0) 13.2 g/dL 12/07/24, 13:16 Hct, (37-47) 40.7 % 12/07/24, 13:16 Plt Count, (150-450) 238 K/mm3 12/07/24, 13:16 CHEMISTRY Potassium, (3.3-5.1) 3.9 mmol/L 12/07/24, 13:16 Sodium, (133-145) 141 mmol/L 12/07/24, 13:16 Magnesium, (1.6-2.6) 1.4 mg/dL L 09/01/22, 14:30 Phosphorus, (2.5-4.9) 3.1 mg/dL 09/01/22, 14:30 BUN, (4-19) 19 mg/dL 12/07/24, 13:16 Creatinine, (0.70-1.20) 1.37 mg/dL H 12/07/24, 13:16 Glucose, (70-99) 142 mg/dL H 12/07/24, 13:16 POC Glucose, (74-106) 103 mg/dL 12/09/22, 08:32 TSH, (0.358-3.74) 1.49 uIU/mL 11/28/21, 07:21 COAG PT, (11.7-14.9) 13.9 SECONDS 07/03/22, 05:55 Pre-Assessment Diagnosis/Proposed Procedure Planned Operative Procedure(s): Colonoscopy Anesthesia History 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 When Was Last Pacemaker Check QUESTION #4 FULL TEXT: You/Your Family Experience fever (hyperthermia) with Anesthesia Last Oral Intake Last Oral intake: Last Oral Intake NPO since 20:30 01/18/25 07:57 Meds taken in AM with sips of No 01/18/25 07:57 water? Meds patient instructed to take am of surgery PONV PONV - piece work inspector: PONV - piece work inspector Female HX of Motion Sickness HX of N/V After Surgery Non-Smoker Duration of Surgery greater than 60 minutes Number of Risk Factors PONV Score Height & Weight Height & Weight: Anesthesia: Height & Weight Height 5 ft 8 in 01/18/25 07:57 Weight: 101 kg 01/18/25 07:57 Body Mass Index (BMI) 33.8 01/18/25 07:57 Respiratory Assessment Respiratory Assessment - piece work inspector: Respiratory Tract Infection Hx - piece work inspector Hx Respiratory Tract Infection No 01/18/25 07:44 STOP Sleep Apnea STOP Sleep Apnea - piece work inspector: STOP Sleep Apnea - piece work inspector Hx Hypertension Yes 01/18/25 07:44 Hx Sleep Apnea Yes 01/18/25 07:44 CPAP Yes: NON COMPLIANT 01/18/25 07:44 BIPAP No 01/18/25 07:44 Do you snore loudly (louder than talking or can be heard Do you often feel tired/ fatigued/ sleepy during daytime? Has anyone observed you stop breathing during sleep? STOP Results Positive 01/18/25 07:44 QUESTION #5 FULL TEXT : Do you snore loudly (louder than talking or can be heard through closed doors)? 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 Specify any problems Hx of Preganancy in last 3 Months Nurse Filling Out Transfusion & Questions: Date: Time: Patient unable to answer at this time (ie. confused, unrespo /Reproduction History /Reproductive History - piece work inspector: /Reproductive Hx- piece work inspector Hx Now Gestational Age (in weeks): EDC: Hx Hx Para Hx Section SAB No 06/08/24 09:45 Active Medications Active Medications: Current Medications Generic Name Dose Route Start Last Admin Trade Name Freq PRN Reason Stop Dose Admin Lactated Ringer's 1,000 mls @ 15 mls/hr 01/18/25 07:30 01/18/25 08:05 IV 15 mls/hr .Q48H JOVANNA Administration PFSH Medical History Incontinence History of rectal cancer Screening for breast cancer Bladder disease Low iron Constipation Diarrhea Anemia Mucositis (ulcerative) due to antineoplastic therapy Elevated serum creatinine Urinary retention Encounter for chemotherapy management Encounter for education CINV (chemotherapy-induced nausea and vomiting) Hypokalemia Fatty liver Thyroid disease Wears partial dentures Anxiety Diabetes Anemia Restless legs Syncope Cardiology follow-up encounter HPV test positive Low grade squamous intraepithelial lesion (LGSIL) Regional lymph node metastasis present Left thyroid nodule Wears glasses Post-menopausal Cancer Depression Alcohol use History of steroid therapy High cholesterol Migraine headache Dietary restriction Former smoker CPAP (continuous positive airway pressure) dependence Sleep apnea Shortness of breath on exertion History of stress test Chronic neck and back pain Fatigue Diabetes Hypertension Home Medications ?Medication ?Instructions ?Recorded ?Last Taken ?Type amlodipine 5 mg tablet 5 mg PO DAILY heart 05/10/18 12/09/22 History cholecalciferol (vitamin D3) 125 250 mcg PO DAILY supplement 05/28/21 07/02/22 History mcg (5,000 unit) tablet (Vitamin D3) dapagliflozin propanediol 5 mg 5 mg PO QHS DM 05/28/21 07/01/22 History tablet (Farxiga) onaprzdwknz-dtj-ewyruvwng-vitC 1 cap PO DAILY supplement 05/28/21 07/02/22 History capsule (Glucosamine Complex-MSM capsule) losartan 100 1 tab PO DAILY bp 05/28/21 07/02/22 History mg-hydrochlorothiazide 25 mg tablet rosuvastatin 20 mg tablet 20 mg PO QHS cholesterol 05/28/21 07/01/22 History metformin 500 mg tablet 1,000 mg PO BID DM 06/27/22 07/02/22 History escitalopram oxalate 10 mg tablet 10 mg PO DAILY 11/10/22 Unknown History (Lexapro) rizatriptan 10 mg tablet (Maxalt) See Rx Instructions PO .COMPLEX 04/29/23 Unknown History bupropion HCl 100 mg tablet,12 hr 100 mg PO QDAY 02/29/24 Unknown History sustained-release (Wellbutrin SR) metoprolol tartrate 50 mg tablet 50 mg PO BID 02/29/24 Unknown History omega-3 fatty acids 500 mg PO BID supplement\ 02/29/24 Unknown History guselkumab 100 mg/mL subcutaneous 100 mg subcut .[id number] 04/26/24 Unknown History syringe (Tremfya) Allergy/AdvReac Type Severity Reaction Status Date / Time acetaminophen (From Vicodin) Allergy Itching Verified 01/18/25 07:53 hydrocodone (From Vicodin) Allergy Itching Verified 01/18/25 07:53 Family History Father Myocardial infarction Mother Osteoporosis Brother Heart disease Sister Arthritis Surgical History H/O LEEP History of vascular access device Hx of eye surgery Hx of tonsillectomy Hx of hemorrhoidectomy History of arthroscopy of right knee Hx of colonoscopy Hx of surgical procedure Social History household members: significant other current occupational status: retired Smoking Status: Former smoker quit date: 03/30/05 alcohol intake: current alcohol intake frequency: other details: used to drink alcohol daily but hasn't drank anything for about a month substance use type: other details: edibles for sleeping diet: diabetic caffeine: Yes what type of physical activity do you participate in: walking frequency: daily Review of Systems (Anesthesia) ROS Narrative System reviewed and no additional complaints, except as documented.
--- NOTE | 2025-01-18 09:30 | PCM.POST.ANE ---
Anesthesia: Postop Eval I Current Vital Signs Temperature: 97.1 F Pulse Rate: 61 Blood Pressure: 96/65 Respiratory Rate: 16 Pulse Ox: 94 Oxygen Delivery Method: Room Air Assessment Airway patent: Yes Spontaneous unlabored respirations: Yes Mental status: Awake and Calm nausea: No Vomiting: No Anesthesia Complication: No Fluid Hydration Crystalloid volume administer (ml): 600 Total IV fluid infused: 600 Progress Note Anesthesia document: Postop Eval 1 completed: Yes
--- NOTE | 2025-01-18 09:34 | OP.PROVAT_ITS ---
01/18/2025 Jesica Wilson [address] [place] [address] [place] [address] Re : Colonoscopy procedure for Susannah Damon Dear Dr. Wilson This procedure was performed on Saturday, January 18, 2025. My impressions and recommendations are as follows: Impressions : - Diverticulosis in the sigmoid colon and in the ascending colon. - Multiple colonic angioectasias. - Scar in the distal rectum. - No specimens collected. Recommendations : - Discharge patient to home. - Resume previous diet. - Continue present medications. - Repeat colonoscopy in 1 year for surveillance. My findings are described in the full procedure note, which is enclosed. If I can be of further assistance, please feel free to contact me at Doctor phone number(s): , Work: . Sincerely, MD Vee Malone MD 01/18/2025 9:34:25 AM This report has been signed electronically.
--- NOTE | 2025-01-18 09:34 | OP.COLON_ITS ---
Patient Name: Susannah Damon Procedure Date: 01/18/2025 8:52 AM Date of : 1960 Age: 64 Procedure: Colonoscopy Indications: Personal history of malignant rectal neoplasm Providers: Vee Chester MD Referring MD: Jesica Wilson Medicines: Monitored Anesthesia Care Patient Profile: This is a 64 year old female. Last Colonoscopy: 1 year ago. Complications: No immediate complications. Procedure: Pre-Anesthesia Assessment: - Prior to the procedure, a History and Physical was performed, and patient medications and allergies were reviewed. The patient's tolerance of previous anesthesia was also reviewed. The risks and benefits of the procedure and the sedation options and risks were discussed with the patient. All questions were answered, and informed consent was obtained. Prior Anticoagulants: The patient has taken no anticoagulant or antiplatelet agents. ASA Grade Assessment: Per anesthesia. After reviewing the risks and benefits, the patient was deemed in satisfactory condition to undergo the procedure. After I obtained informed consent, the scope was passed under direct vision. Throughout the procedure, the patient's blood pressure, pulse, and oxygen saturations were monitored continuously. The pediatric colonoscope was introduced through the anus and advanced to the cecum, identified by the appendiceal orifice, ileocecal valve and palpation. The colonoscopy was performed without difficulty. The patient tolerated the procedure well. The quality of the bowel preparation was good. Scope In: 9:02:31 AM Scope Withdrawal Time 0 hours 11 minutes 53 seconds Scope Out: 9:20:24 AM Total Procedure Duration Time 0 hours 17 minutes 53 seconds Findings: The perianal and digital rectal examinations were normal. Scattered small-mouthed diverticula were found in the sigmoid colon and ascending colon. Multiple small angioectasias were found in the rectum and in the sigmoid colon from radiation. A scar was found in the distal rectum. Impression: - Diverticulosis in the sigmoid colon and in the ascending colon. - Multiple colonic angioectasias. - Scar in the distal rectum. - No specimens collected. Recommendation: - Discharge patient to home. - Resume previous diet. - Continue present medications. - Repeat colonoscopy in 1 year for surveillance. Procedure Code(s): --- Professional --- 08898, PT, Colonoscopy, flexible; diagnostic, including collection of specimen(s) by brushing or washing, when performed (separate procedure) Diagnosis Code(s): --- Professional --- K55.20, Angiodysplasia of colon without hemorrhage K62.89, Other specified diseases of anus and rectum Z85.048, Personal history of other malignant neoplasm of rectum, rectosigmoid junction, and anus K57.30, Diverticulosis of large intestine without perforation or abscess without bleeding CPT copyright 2021 [employer]. All rights reserved. The codes documented in this report are preliminary and upon measuring clerk review may be revised to meet current compliance requirements. MD Vee Malone MD 01/18/2025 9:34:25 AM This report has been signed electronically. Number of Addenda: 0 Note Initiated On: 01/18/2025 8:52 AM
--- NOTE | 2025-01-18 10:02 | PCM.POSTANE2 ---
Anesthesia Postop Eval I Sum Postop Eval Completion status Anesthesia document: Postop Eval 1 completed: Yes Anesthesia Postop Eval I Summary Anesthesia Postop Eval I Summary: Anesthesia Postop Eval I: Assessment Summary Airway patent Yes 01/18/25 09:31 [email or web address] Spontaneous unlabored Yes 01/18/25 09:31 [email or web address] respirations Mental status Awake,Calm 01/18/25 09:31 [email or web address] nausea No 01/18/25 09:31 [email or web address] Vomiting No 01/18/25 09:31 [email or web address] Anesthesia Postop Eval I: Fluid Summary Crystalloid volume administer 600 01/18/25 09:31 [email or web address] (ml) Colloids volume administered ( ml) Blood Product volume administered (ml) Total IV fluid infused 600 01/18/25 09:31 [email or web address] Anesthesia Postop Eval I: Summary Notes Anesthesia Complication No 01/18/25 09:31 [email or web address] Anesthesia Complication Comment: Post-operative progress note Anesthesia: Postop Eval II Evaluation Mental status: Awake Pain Level: 0 nausea: No Vomiting: No
== END 2025-01-18 10:21 | disposition home or self-care (01) ==
LOC: EN 07:27 → AC 07:30
PROVIDERS: PCP Internal Medicine; Referring Provider Internal Medicine; Visit Provider Surgery
PROC: 0DJD8ZZ Inspection of Lower Intestinal Tract, Via Natural or Artificial Opening Endoscopic (ICD-10-PCS; CPT 45378; principal; 2025-01-18 08:40)
DX: Z12.11 Encounter for screening for malignant neoplasm of colon (principal); E11.9 Type 2 diabetes mellitus without complications; Z87.891 Personal history of nicotine dependence; Z79.84 Long term (current) use of oral hypoglycemic drugs; K57.30 Diverticulosis of large intestine without perforation or abscess without bleeding; I10 Essential (primary) hypertension; E78.00 Pure hypercholesterolemia, unspecified; G43.909 Migraine, unspecified, not intractable, without status migrainosus; Z92.21 Personal history of antineoplastic chemotherapy; Z85.048 Personal history of other malignant neoplasm of rectum, rectosigmoid junction, and anus; Z92.3 Personal history of irradiation; G47.30 Sleep apnea, unspecified; Z99.89 Dependence on other enabling machines and devices; Z79.899 Other long term (current) drug therapy; F41.9 Anxiety disorder, unspecified; F32.A Depression, unspecified; K55.20 Angiodysplasia of colon without hemorrhage; K62.89 Other specified diseases of anus and rectum
CPT/HCPCS: 45378; 82962; J2405

== ENCOUNTER → 2025-01-27 | Outpatient (CLI) | payer MEDICARE, SELFPAY ==
[2025-01-27 14:59] LABS: Hematocrit 42.9 % (37-47); Hemoglobin 13.9 g/dL (12.0-15.0); Immature Granulocytes Count 0.010 X10^3/uL (0.0-0.0); Mean Corp Hgb Conc 32.4 g/dL (32-36); Mean Corpuscular Volume 87.2 fL (81-99); Mean Platelet Vol. 8.9 fl (6.2-12.0); NRBC Flagged by Analyzer 0 % (0-5); Platelet Count 247 K/mm3 (150-450); RBC Distribution Width CV 13.9 % (11.6-14.6); RBC Distribution Width SD 44.5 fl (35.1-43.9); Red Blood Count 4.92 M/mm3 (4.2-5.4); White Blood Count 6.0 K/mm3 (4.4-11.0)
[2025-01-27 15:35] LABS: AST(SGOT) 26 U/L (<=31); Alanine Aminotransfer ALT/SGPT 21 U/L (<=34); Albumin, Serum 4.2 g/dL (3.4-4.8); Alkaline Phosphatase 69 U/L (35-104); Bilirubin, Direct 0.16 mg/dL (0.00-0.30); Globulin 3.3 g/dL (2.2-4.2)
[2025-01-31 12:09] LABS: QNTFERON TB Mitogen Value > 10.00 IU/mL (.); QNTFERON TB Nil Value 0.09 IU/mL (.); QNTFERON TB1+ Ag Value 0.08 IU/mL (.); QNTFERON TB2+ Ag Value 0.09 IU/mL (.); QNTIFERON TB Positive Criteria Negative (Negative)
== END | disposition home or self-care (01) ==
LOC: MTLAB 11:36
PROVIDERS: PCP Internal Medicine; Referring Provider Nurse Practitioner Family; Visit Provider Nurse Practitioner Family
DX: Z79.899 Other long term (current) drug therapy (principal)
CPT/HCPCS: 36415; 80076; 85025; 86480

== ENCOUNTER → 2025-03-01 | Outpatient (CLI) | payer MEDICARE, SELFPAY | END | disposition home or self-care (01) | LOC: SL 19:59 | PROVIDERS: PCP Internal Medicine; Referring Provider Internal Medicine; Visit Provider Internal Medicine | DX: G47.33 Obstructive sleep apnea (adult) (pediatric) (principal) | CPT/HCPCS: 95811 ==